=== PATIENT | female | born 1980 | race Caucasian/White ===

== ENCOUNTER 2023-03-05 20:26 | Outpatient (REF) | payer OTHER, SELFPAY ==
[2023-03-09 12:11] LABS: Age Gdln ACOG Testing Note (.); HPV Aptima Negative (Negative); IGP, Aptima HPV, rfx 16/18,45 Note (.)
== END 2023-03-05 20:27 | disposition home or self-care (01) ==
LOC: LAB 20:26
PROVIDERS: Visit Provider Obstetrics & Gynecology
DX: Z12.4 Encounter for screening for malignant neoplasm of cervix (principal)
CPT/HCPCS: 87624; G0145

== ENCOUNTER 2023-04-10 10:24 | Outpatient (OUT) | payer OTHER, SELFPAY ==
--- NOTE | 2023-04-10 10:26 | MM_ITS ---
Patient Name: ZAKI HUMPHREY MR#: [id number] : 1980 Exam Date: 04/10/2023 Ordering Doctor: DR Cheng Joseph . RADIOLOGY REPORT PROCEDURE: MM TOMOSYNTHESIS SCREENING BI COMPARISON: MG MAMM LT DIAG W CAD, 03/07/2017. MG MAMM SCREEN 3D JUDY CAD, 03/08/2022. INDICATIONS: Screening Calculator Name NCI Breast Cancer Risk Assessment Tool 5 Year Breast Cancer Risk 2.00% Lifetime Breast Cancer Risk 17.20% Personal Breast Cancer No Personal Ovarian Cancer No Treatments None Family Cancers Grandfather-maternal with throat cancer at age 70; Aunt-maternal with lung cancer at age 22. LOCATION: [facility] BREAST COMPOSITION: Scattered areas fibroglandular density. FINDINGS: DIAGNOSTIC CATEGORY 2--BENIGN FINDING. NO CHANGE FROM COMPARISON. Scattered benign-appearing calcifications are present. Scattered benign-appearing lymph nodes are present. RIGHT BREAST: No significant suspicious finding. LEFT BREAST: No significant suspicious finding. Stable nodules upper-outer quadrant, mid breast. Stable micro clip marker RECOMMENDATIONS: ROUTINE MAMMOGRAM AND CLINICAL EVALUATION IN 12 MONTHS. PLEASE NOTE: A NORMAL MAMMOGRAM DOES NOT EXCLUDE THE POSSIBILITY OF BREAST CANCER. A CLINICALLY SUSPICIOUS PALPABLE LUMP SHOULD BE BIOPSIED. Dictated by: Ronny Telles MD on 04/11/2023 at 07:46 Approved by: Ronny Telles MD on 04/11/2023 at 07:48
== END 2023-04-10 10:25 | disposition home or self-care (01) ==
LOC: MAMMO 10:24
PROVIDERS: Visit Provider Obstetrics & Gynecology
DX: Z12.31 Encounter for screening mammogram for malignant neoplasm of breast (principal); Z80.1 Family history of malignant neoplasm of trachea, bronchus and lung; Z80.8 Family history of malignant neoplasm of other organs or systems
CPT/HCPCS: 77063; 77067

== ENCOUNTER 2023-04-27 10:57 | Outpatient (OUT) | payer OTHER, SELFPAY ==
--- NOTE | 2023-04-27 11:33 | ECG_ITS ---
[facility] Test Date: 2023-04-27 Pat Name: ZAKI HUMPHREY Department: Room: - Gender: Female Die Tester: : 1980 Requested By: SHAY KRUSE Order Number: [id number] Reading MD: KEN COULTER Measurements Intervals Mikado Rate: 37 P: 51 WI: 189 QRS: 45 QRSD: 93 T: 7 QT: 501 QTc: 396 Interpretive Statements SINUS BRADYCARDIA MODERATE T-WAVE ABNORMALITY, CONSIDER ANTERIOR ISCHEMIA [-0.1+ mV T WAVE IN V3/V4] No previous ECG available for comparison Electronically Signed On 04-29-2023 19:51:08 EST by KEN COULTER
[2023-04-27 11:53] LABS: Basophils Percent Auto 0.7 % (0.2-2.0); Eosinophils Absolute Auto 0.1 10^3/uL (0.0-0.7); Hematocrit 40.8 % (36.0-48.0); Hemoglobin 13.4 g/dL (12.0-16.0); Immature Granulocytes Abs Auto 0.01 10^3/uL (0.00-0.03); Immature Granulocytes Pct Auto 0.2 % (0.0-0.5); Lymphocytes Absolute Auto 2.8 10^3/uL (1.2-3.8); Lymphocytes Percent Auto 45.7 % (20.5-60.0); Mean Corpuscular HGB Conc 32.8 g/dL (29.9-35.2); Mean Corpuscular Hemoglobin 33.1 pg (26.7-34.0); Mean Corpuscular Volume 100.7 fL (81.0-99.0); Mean Platelet Volume 11.2 fL (9.5-13.5); Monocytes Absolute Auto 0.6 10^3/uL (0.3-0.8); Neutrophils Absolute Auto 2.6 10^3/uL (1.4-6.5); Neutrophils Percent Auto 42.4 % (43.0-75.0); Platelet Count 229 10^3/uL (150-450); Red Blood Count 4.05 10^6/uL (4.20-5.40); Red Cell Distribution Width 11.9 % (11.0-15.0); White Blood Count 6.1 10^3/uL (4.0-11.0)
[2023-04-27 12:33] LABS: Alanine Aminotransferase 24 U/L (14-59); Albumin Globulin Ratio 1.2; Albumin Level 3.8 g/dL (3.4-5.0); Alkaline Phosphatase 62 U/L (46-116); Anion Gap 10.4; Aspartate Amino Transferase 20 U/L (15-37); BUN Creatinine Ratio 13.3; Bilirubin Direct 0.1 mg/dL (0.0-0.2); Bilirubin Total 0.4 mg/dL (0.2-1.0); Calcium 8.7 mg/dL (8.5-10.1); Carbon Dioxide 28.7 mmol/L (21.0-32.0); Chloride 105 mmol/L (98-107); Estimated GFR (African America >60 (>=60); Estimated GFR (Non-African Ame >60 (>=60); Globulin 3.2 g/dL; Glucose 86 mg/dL (74-106); Potassium 4.1 mmol/L (3.5-5.1); Sodium 140 mmol/L (136-145)
[2023-04-27 12:54] LABS: INR 0.94; Partial Thromboplastin Time 27.5 sec (22.3-36.2)
== END 2023-04-27 10:58 | disposition home or self-care (01) ==
PROVIDERS: Visit Provider Obstetrics & Gynecology
DX: Z01.810 Encounter for preprocedural cardiovascular examination (principal); Z01.812 Encounter for preprocedural laboratory examination; R10.2 Pelvic and perineal pain; N92.1 Excessive and frequent menstruation with irregular cycle; N94.6 Dysmenorrhea, unspecified; N94.10 Unspecified dyspareunia
CPT/HCPCS: 36415; 80048; 80076; 85025; 85610; 85730; 86850; 86900; 86901; 93005

== ENCOUNTER 2023-05-09 06:13 | Day surgery (SDC) | payer OTHER, SELFPAY ==
[2023-04-27 11:31] VITALS: BP 103/57; PULSE 43; RESP 14; TEMP 36.3; O2SAT 100; BMI 27.3
[2023-05-09] VITALS (14 sets, daily range): BP systolic 103–121; BP diastolic 53–75; PULSE 56–87; RESP 15–23; TEMP 36.4–36.8; O2SAT 95–100
[2023-05-09 06:49] LABS: HCG Quantitative <1 mIU/mL
[2023-05-09] MEDS: LACTATED RINGER'S SOLUTION 1,000 ML 50 ML IV (07:15)
[2023-05-09] MEDS: CEFAZOLIN SODIUM/DEXTROSE,ISO 1 GM/50 ML IV.SOLN IV ×3 (07:35→16:16)
--- NOTE | 2023-05-09 09:56 | P.ON_ITS ---
Brief Operative Note Date of procedure: 05/09/23 Pre-op diagnosis: pelvic pain, dysmenorrhea, aub Post-op diagnosis: same as pre-op Procedure: NAME OF PROCEDURE: ? Robotic assisted laparoscopic hysterectomy with cystoscopy PROCEDURE:? The patient was taken back to the operating room, where she was prepped and draped in the normal sterile fashion after being placed in the dorsal lithotomy position.? Patient?s anesthesia was found to be adequate.? Surgical timeout was performed using two patient identifiers.? SCDs were on and in place.? Two grams of Ancef were given prior to the surgery.? Sterile Rebolledo catheter was inserted.? Standard size VCare was secured to the uterine cervix and the surgeon changed gloves.? Attention then was turned to the patient's abdomen, where a suprau mbilical incision was then made.? Two S retractors were used to identify the patient?s fascia.? The fascia was then tented up using Annetta clamps and the patient?s fascia was incised sharply.? Patient?s abdomen was identified and entered bluntly.? The patient had the trocar placed and a pneumoperitoneum was obtained.? Approximately 4 liters of CO2 gas was used.? The camera was then placed through the trocar.? At this time, two robot trocars were placed in the patient?s left and right side, two hand widths from the midline, and this was placed under direct visualization.? Please note absent tubes were seen. The uterine ovarian ligament was identified and transected and ligated using the vessel sealer? The vessel sealer was carried down serially to the broad ligament, to the area of the bladder flap, which was then created anteriorly, and the uterine arteries were skeletonized and sealed using the vessel sealer.? The colpotomy was made using the monopolar cautery on cut, and this was carried circumferentially, posteriorly to anteriorly, until the uterus was amputated.? The specimen was then removed intact through the vagina, without difficulty.? The vagina was then closed using two running V-Loc in a non-lock fashion.? The robot was undocked.? The abdomen was desufflated.? The skin defects were closed using 4-0 Vicryl.? Please note, the fascia was closed using 0 Vicryl.? Sponge, lap and needle counts were correct x2.? Patient was taken to recovery room in stable condition.? The patient was awakened by Anesthesia first.? Patient tolerated procedure well.??Please note left ovarian cystectomy was performed using the vessel sealer Anesthesia: ANAHI Surgeon: Cheng Joseph Solids Control Technician: Angela Granados Estimated blood loss (mL): 100 Pathology: other (uterus and cervix) Condition: stable Disposition: PACU
[2023-05-09] MEDS: LACTATED RINGER'S SOLUTION 1,000 ML 125 ML IV (10:34)
[2023-05-09] MEDS: OXYCODONE HCL/ACETAMINOPHEN 5MG/325MG 1 TAB PO ×2 (11:25→17:03)
[2023-05-09] MEDS: DOCUSATE SODIUM 100 MG CAPSULE PO (16:05)
[2023-05-09 16:19] LABS: Basophils Percent Auto 0.1 % (0.2-2.0); Hematocrit 39.1 % (36.0-48.0); Hemoglobin 12.9 g/dL (12.0-16.0); Immature Granulocytes Abs Auto 0.04 10^3/uL (0.00-0.03); Immature Granulocytes Pct Auto 0.3 % (0.0-0.5); Lymphocytes Absolute Auto 0.8 10^3/uL (1.2-3.8); Lymphocytes Percent Auto 6.3 % (20.5-60.0); Mean Platelet Volume 10.9 fL (9.5-13.5); Monocytes Absolute Auto 0.3 10^3/uL (0.3-0.8); Monocytes Percent Auto 2.6 % (1.7-12.0); Neutrophils Absolute Auto 11.3 10^3/uL (1.4-6.5); Neutrophils Percent Auto 90.7 % (43.0-75.0); Platelet Count 200 10^3/uL (150-450); Red Blood Count 3.91 10^6/uL (4.20-5.40); White Blood Count 12.5 10^3/uL (4.0-11.0)
== END 2023-05-09 17:28 | disposition home or self-care (01) ==
LOC: SURGOUT 09:58 → MS 10:49
PROVIDERS: Visit Provider Obstetrics & Gynecology
PROC: (CPT 840; principal; 2023-05-09 07:30)
DX: R10.2 Pelvic and perineal pain (principal); N92.1 Excessive and frequent menstruation with irregular cycle; N94.6 Dysmenorrhea, unspecified; N94.10 Unspecified dyspareunia; N88.8 Other specified noninflammatory disorders of cervix uteri; Z98.51 Tubal ligation status; N83.209 Unspecified ovarian cyst, unspecified side; Z87.891 Personal history of nicotine dependence; K21.9 Gastro-esophageal reflux disease without esophagitis; Z87.442 Personal history of urinary calculi; Z86.16 Personal history of COVID-19
CPT/HCPCS: 58570; 58662; 36415; 84702; 85025; 88307; 94667; J1170; J2704

== ENCOUNTER 2024-04-11 07:26 | Outpatient (OUT) | payer OTHER, SELFPAY ==
--- NOTE | 2024-04-11 07:29 | MM_ITS ---
Patient Name: ZAKI HUMPHREY MR#: [id number] : 1980 Exam Date: 04/11/2024 Ordering Doctor: DR Cheng Joseph . RADIOLOGY REPORT PROCEDURE: MM TOMOSYNTHESIS SCREENING BI COMPARISON: MM TOMOSYNTHESIS SCREENING BI, 04/10/2023. MG MAMM SCREEN 3D JUDY CAD, 03/08/2022. MG MAMM LT DIAG W CAD, 03/07/2017. MG MAMM JUDY DIAG W CAD, 08/07/2016. INDICATIONS: Screening Calculator Name NCI Breast Cancer Risk Assessment Tool 5 Year Breast Cancer Risk 2.10% Lifetime Breast Cancer Risk 16.90% Personal Breast Cancer No Personal Ovarian Cancer No Treatments None Family Cancers Grandfather-maternal with throat cancer at age 70; Aunt-maternal with lung cancer at age 22. LOCATION: [facility] BREAST COMPOSITION: There are scattered areas of fibroglandular density. FINDINGS: DIAGNOSTIC CATEGORY 2--BENIGN FINDING: RIGHT BREAST: No significant suspicious finding. No significant change has occurred. LEFT BREAST: No significant suspicious finding. Stable residual fibroglandular tissue versus scarring within posterior upper-outer quadrant and associated biopsy marker clip. No significant change has occurred. RECOMMENDATIONS: ROUTINE MAMMOGRAM AND CLINICAL EVALUATION IN 12 MONTHS. PLEASE NOTE: A NORMAL MAMMOGRAM DOES NOT EXCLUDE THE POSSIBILITY OF BREAST CANCER. A CLINICALLY SUSPICIOUS PALPABLE LUMP SHOULD BE BIOPSIED. Dictated by: Terry Pierson M.D. on 04/11/2024 at 10:22 Approved by: Terry Pierson M.D. on 04/11/2024 at 10:29
--- OUTSIDE RECORDS SUMMARY | 2024-04-11 07:29 | XMS_ITS | CCD ---
Author Organization [facility] Care Team Providers Care Factory Expert Name Role Phone AIXA, DR DAY Admitting Unavailable AIXA, DR DAY Attending Unavailable AIXA, DR DAY Consulting Unavailable AIXA, DR DAY Admitting Unavailable AIXA, DR DAY Attending Unavailable FURLONG, DR MARY KATE Olivier Primary Care Unavailable AIXA, DR DAY Consulting Unavailable AIXA, DR DAY Admitting Unavailable AIXA, DR DAY Attending Unavailable FURLOMACK, DR MARY KATE Olivier Primary Care Unavailable AIXA, DR DAY Consulting Unavailable DANGELO, MARISELA Consulting Unavailable SHARP, TAMI Consulting Unavailable KUCHIPUDI, EMILY Consulting Unavailable AIXA, DR DAY Admitting Unavailable AIXA, DR DAY Attending Unavailable NOREEN, DR FORRESTER Consulting Unavailable AIXA, DR DAY Consulting Unavailable ZIEBER, DR HOLA Wolf Consulting Unavailable AIXA, DR DAY Admitting Unavailable AIXA, DR DAY Attending Unavailable FURJENNIFER, DR MARY KATE Olivier Primary Care Unavailable AIXA, DR DAY Consulting Unavailable ZIEBGIORGI, DR HOLA Wolf Consulting Unavailable AMELIA PILLAI Attending Unavailable ROSAS, AMELIA Attending Unavailable AMELIA PILLAI Attending Unavailable SHAY JOSEPH Attending Unavailable MARY KATE EAGLE Attending Unavailable MARY KATE EAGLE Primary Care Unavailable MARY KATE EAGLE Referring Unavailable MARY KATE EAGLE Primary Care Unavailable PAULA MACHADO Attending Unavailable PAULA MACHADO Admitting Unavailable MARY KATE EAGLE Primary Care Unavailable Problems Active Problems Problem Classification Problem Date Documented Da te Episodic/Chronic Contraceptive and procreative management (1 source) Tubal ligation status; Translations: [TUBAL LIGATION STATUS] Onset: 04-26-2022 Episodic Menstrual disorders (5 sources) Excessive and frequent menstruation with regular cycle; Translations: [Dysmenorrhea, unspecified] Onset: 04-13-2022 Chronic Mycoses (1 source) Candidiasis, unspecified; Translations: [CANDIDIASIS UNSPECIFIED] Onset: 04-26-2022 Episodic Other skin disorders (1 source) Generalized hyperhidrosis; Translations: [Generalized hyperhidrosis] Onset: 09-05-2023 Episodic Ovarian cyst (5 sources) Other ovarian cyst, unspecified side; Translations: [Unspecified ovarian cyst, left side] Onset: 03-11-2022 Episodic Unclassified (1 source) CONTACT W/AND (SUSP) EXPOS COVID-19; Translations: [CONTACT W/AND (SUSP) EXPOS COVID-19] Onset: 04-11-2022 Unclassified (1 source) Annual Exam Onset: 09-05-2023 Past or Other Problems Problem Classification Problem Date Documented Date Episodic/Chronic Immunizations and screening for infectious disease (1 source) Encounter for screening for human papillomavirus (HPV); Translations: [ENC SCREENING HUMAN PAPILLOMAVIRUS] Onset: 03-06-2022 Episodic Other screening for suspected conditions (not mental disorders or infectious disease) (5 sources) Encounter for screening mammogram for malignant neoplasm of breast; Translations: [Encounter for screening for malignant neoplasm of cervix] Onset: 03-02-2022 Episodic Residual codes; unclassified (1 source) Family history of malignant neoplasm of trachea, bronchus and lung; Translations: [FAM HX MALIG NEOPLSM TRACH BRON LNG] Onset: 03-11-2022 Episodic Residual codes; unclassified (1 source) Family history of malignant neoplasm of other organs or systems; Translations: [FAM HX MALIG NEOPLASM OTH ORGN/SYS] Onset: 03-11-2022 Episodic Results Test Name Value Interpretation Reference Range Facility COMPREHENSIVE METABOLIC PANE Juan Manuel 09-05-2023 Albumin [Mass/Vol] 4.3 g/dL Normal 3.2-5.3 [facility] Comment on above: Performed By: #### C PINO, 44520-9 #### [facility] ([id number]) [address], [address] [place] [address] ALP [Catalytic activity/Vol] 68 U/L Normal 39-130 [facility] Comment on above: Performed By: #### C PINO, 87690-5 #### [facility] ([id number]) [address], [address] [place] [address] ALT [Catalytic activity/Vol] 34 U/L High 0-31 [facility] Comment on above: Performed By: #### Sandra PRINGLE, 23982-0 #### [facility] ([id number]) [address] [place] [address] Anion gap [Moles/Vol] 7 mmol/L Normal 5-15 [facility] Comment on above: Performed By: #### Sandra PRINGLE, 10022-1 #### [facility] ([id number]) [address], [address] [place] [address] AST [Catalytic activity/Vol] 24 U/L Normal 0-41 [facility] Comment on above: Performed By: #### Sandra PRINGLE, 27354-2 #### [facility] ([id number]) [address], [address] [place] [address] Bilirubin [Mass/Vol] 0.5 mg/dL Normal 0.3-1.2 [facility] Comment on above: Performed By: #### Sandra PRINGLE, 55143-3 #### [facility] ([id number]) [address], [address] [place] [address] Calcium [Mass/Vol] 9.5 mg/dL Normal 8.5-10.5 [facility] Comment on above: Performed By: #### Sandra PRINGLE, 47163-3 #### [facility] ([id number]) [address], [address] [place] [address] Chloride [Moles/Vol] 105 mmol/L Normal 98-109 [facility] Comment on above: Performed By: #### Sandra PRINGLE, 28542-2 #### [facility] ([id number]) [address], [address] [place] [address] CO2 [Moles/Vol] 31 mmol/L Normal 22-32 [facility] Comment on above: Performed By: #### Sandra PRINGLE, 94423-0 #### [facility] ([id number]) [address], [address] [place] [address] Creatinine [Mass/Vol] 0.69 mg/dL Normal 0.40-1.00 [facility] Comment on above: Result Comment: METH OD TRACEABLE TO IDMS STANDARD Performed By: #### Sandra PRINGLE, 79896-9 #### [facility] ([id number]) [address], [facility] [address] [place] [address] eGFR (CKD-EPI) NON-RACE DEPENDENT >90 Normal >59 [facility] Comment on above: Result Comment: Reported eGFR is based on the CKD-EPI 2020 equation that does not use a race coefficient. Performed By: #### Sandra PRINGLE, 53541-9 #### [facility] ([id number]) [address], [address] [place] [address] Glucose [Mass/Vol] 88 mg/dL Normal 65-99 [facility] Comment on above: Performed By: #### Sandra PRINGLE, 93354-7 #### [facility] ([id number]) [address] [address] [place] [address] Potassium [Moles/Vol] 4.3 mmol/L Normal 3.5-5.0 [facility] Comment on above: Performed By: #### Sandra PRINGLE, 32269-6 #### [facility] ([id number]) [address], [address] [place] [address] Protein [Mass/Vol] 7.0 g/dL Normal 6.0-8.0 [facility] Comment on above: Performed By: #### Sandra PRINGLE, 78205-7 #### [facility] ([id number]) [address], [address] [place] [address] Sodium [Moles/Vol] 143 mmol/L Normal 134-146 [facility] Comment on above: Performed By: #### Sandra PRINGLE, 76438-9 #### [facility] ([id number]) [address], [facility] [address] [place] [address] Urea nitrogen [Mass/Vol] 13 mg/dL Normal 5-23 [facility] Comment on above: Performed By: #### Sandra PRINGLE, 22311-8 #### [facility] ([id number]) [address], [facility] [address] [place] [address] Lipid 1996 panelon 4 Cholesterol [Mass/Vol] 151 mg/dL Normal 150-200 [facility] Comment on above: Performed By: #### Sandra PRINGLE, 31683-6 #### [facility] ([id number]) [address], [facility] [address] [place] [address] Cholesterol in HDL [Mass/Vol] 50 mg/dL Normal >39 [facility] Comment on above: Result Comment: HDL <40 mg/dL - High Risk HDL > or = 40mg/dL- Desirable HDL >60 mg/dL - Negative Risk Performed By: #### Sandra PRINGLE, 71814-3 #### [facility] ([id number]) [address], [address] [address] Cholesterol in LDL [Mass/Vol] 80 mg/dL Normal <130 [facility] Comment on above: Result Comment: LDL <100 mg/dL - Desirable LDL >160 mg/dL - High Risk Performed By: #### Sandra PRINGLE, 21564-0 #### [facility] ([id number]) [address], [address] [place] [address] Cholesterol in VLDL [Mass/Vol] 21 mg/dL Normal 0-30 [facility] Comment on above: Performed By: #### Sandra PRINGLE, 60979-4 #### [facility] ([id number]) [address], [address] [place] [address] CHOLESTEROL:HDL 3.0 Normal 1.0-5.0 [facility] Comment on above: Performed By: #### Sandra PRINGLE, 95326-5 #### [facility] ([id number]) [address], [address] [place] [address] Triglyceride [Mass/Vol] 107 mg/dL Normal 27-150 [facility] Comment on above: Performed By: #### Sandra PRINGLE, 80568-1 #### [facility] ([id number]) [address], [address] [place] [address] Coding Summaryon 09-03-2023 Coding Summary HTMLBase 64 DeinzsbaQQl5eFn+PGhlY WQ+AD2EQEOdR50vwHEzsZ 1vD7CNKTuDKrenRUVMXRg JAhUjslVuQE2qyLHcQRRz IC8+BO6nENObHlpjlFRxl 0C5jNZ0B09eda6zEWwyzE I4MSIoUmZobctpk5dafSz 6IDcuNmluOyBt HSJraG83YXH6gB14Ka43b UCsaUYaq8hpvUo3MlDoUJ SrGND5gGrwECksr7FhIGF mW48tmBJbx3G4 GAXvbHdjpYKsHvHffSR6e I8hOOuqrmwjk9yiuazkDm u8ly77eWCzt7F1gDC9D1F bubJ0LKDgpNNv LpjopQKGvI2miffru2pck tpfPfJjHFVoIPg0BRk9ZX AdeAdwTkXnTP51FSK4HWZ udjZdN4YcMJSj pLhvAoD7e4W0Su6ZZ5MXM proP1QUIWQFUNfcrRX+PC 98fx86N9EoAlwtQmp7DRK wYNE6gWZ4jG7r WRYxOGajs7J5lIT1V0Nco nRnvf4zq9gxGDXmKJcoH1 6bwIFdf6C8OVGirDT5FCX qkQecBqCrcB76 Oyc+FMLawCszl3IlQlfcu 6sjn4lcxLf0TpjxWSAshk BszIhoJYZ9t9OtSr3pATW qvXJ6gPA0bU9q UeBxWgJ9SLmyN448YmRjm NUzHpbsH55qB8YdsPP+PH NrNol5VSWbuXggRC1sO4V hZGRpbmctbGVm hAtbVJ4tKLMquzrlCIFix S4aXYXdX3k5JvNjYeK0QI mbV0AoDOGrwqnaMx00qY6 hRgMtWzC2LDzh P5ByeoY0FECflPYoTYdeP RP0V83qs6O5GQDlVRWqWC M5vPH6oZ5mfXkscntzzMC mdDsgdmVydGlj DCcaPWrbD408MPCntOpoM kNvZGluZyBEYXRlOiAgMD QvMDgvMjAyNDwvdGQ+PHR tYMB8jZfxFBLi rUVoLQafXw6prHedvXboL Q8gZOZqjnkiCOWgfX0iJN WmkMZuoZzoOK9kEZExwik pr773DwGrDKL7 WLBuxROmM1JveU9nKsJoQ QMsFJXhP4TatFZfHIlhG8 54GWgkJlS3UKZgznNtP8B sLWFsaWduOiB0 c4D6Rf7Mc1VsijejI2Qhh GTkGbQuMhweOUt9T4VxYw wvdHI+AG10CBEdWW28WAe 4KRB4zEdoZCdp WQCuR5LowF7vKvCvHZJwD GRkOyc+PHRhYmxlIHdpZH RoPScxMDAlJyBzdHlsZT0 lXc8vSQKcQCYp xQiltGCnJgLlx1hqYPEdP MfzTH1poAfiA0HwwKM5FR Yyd8w0Lb96R22fV2JtpKQ +PGGpmSS7kYP4 jK4cLbUyZjA3ZGfhJ226Z dCivMLwYkyvt4ffl1skgY c3TrI3QEJobjRezBidCIO 9o9WpMr18K57b IHdpZHRoPSIxNSUiIHZhb Orbpx2ctF1zQp5+PGNvbC K8hSB9nD7bTsThRlC7MLz rJ295MjGpkNDa Uewfc2yei4mjnEf3ObLzU JBpdlWwuPctMZT8t0WbOj 12H8XpeEtub7NvMkh7iz0 1rUKoi8R1pKT6 I9UoVWHmykfppECsiQthH C0rAJZadaxaBDKdpF5sXW UfL2d5ZeDyZaS4ZSyeC5R xduT6WFUhgAJn PTMqwXPOqL2ryzpxv2avn hxlSdCjRKWoJKm9TOg7YC OozBhfMsBsSVR8XeD2RGU 4wGMybC4myLlg lseffJ3dDkr+YUG6aJHgb POCAI4wVxetlCK+PHRkIH Y2eYuuJYvsQFNwtD8wSZU gP2u7UzKgHvI0 LEkhU5ZsfzR6VAEvzZMaN PHewPJUmQ2voveur8jfiq tbImOoUPJgTHu5XMq5QIW saWduOiBsZWZ0 DuZ0VVV5gVWyjF4xrBcqs zkbeY3yWmt+QmlydGggRG Y9AHd9V1RoUzk4MVJleRk wZF2jrXIeUFer Xg5loHoyaInsWA3xYGJmr chtw627SvEgu3htWXFafS ZaMVjsGOM2W19nq3Q0KMP xFZYaXCC7bZQ2 nB8tsWejqibcgQNnfIzjh wOhhRfpZQkuKFwqV179QL DedVqcDoPvPMj0B9JiFri 5RJGcuEhgPG1w jKInRJcvPe5pwAabcIzvR O5wCEBqmpqzr954MgQry1 bfIIZokACgCQakSTQ7H27 kr7N7EZDqNXEa ZZM2jDV7dC5beFefvqzvx GVmdDsgdmVydGljYWwtYW ziR625YXPjvFqaRfHdvSb 2B1RxKij9KCHg wPrbLT4cgNNsGZwhXd7yo BwcsLzhGA2hWZGnhnfns7 27LqMbj7kfTBOhbPZdKPl gFQL7K33xg7I6 WLYtBBAtRQR1kNX0gF1ds GlnbjogbGVmdDsgdmVydG ikGBedWSkcR230JQTwvSp nPlBhdGllbnQg WGvzBIl8K1IvWvjnzOY+P X19HCMiWK66eDHiqEMba3 acbZw0SnLpAYPgQPV6xDq zDDkmd0EdDNRi U48ctGFhp1D7ANMboNfhr ZQtNpAnlBI7kA6xJVpiar hjg0spiaftGgcnz5uktr5 9aP75T21wAZru ZHRoPSIzMCUiIHZhbGlnb o7ifZ1qLv4+SBEkgJD2yO Q4qL8lOCZdBjO8VRudM14 9InRvcCIvPjxj w9uve5kqaSu9SyP0IORfl pRjeOwkCAK8f5CxEf94C5 9sIHdpZHRoPSIyMCUiIHZ nlGadby7scI5g Ii8+JHUfdIF3zUJ5pG3eH fLyZrP1GOnlF107XqEvuP UzAywnY83zN5CboUN+PHR tSle7WSWkqEjq HJ5baPQzWUfvHo3jAGR7W zDhKrNnWWsfM7RwVQCwyd rspkcwrSO2WGXsASOukV7 0Vz7ntNztUTDm aHHEzG8vruadb7njfkugB rOvOSNpSHi0GMy3PZGliQ fqUcChFSE1PpF1JPM6mDF ugP0miQrdpwjj cI1fF4NaNUTdfqqtCy31d O4pFwLeZdG5XCvnFvs+QU STZt9MDWgANKUDKgXZJGp BVEhFUklORTwv dGQ+SKLyFXT8iAlmZOgrP RJyuA5bPFBiU1e8QyEaSf S3DBqwN0JqOZCulbozGw8 0iB4jInRdDnU7 QOzwK8FevhY4KVKmaOCkM WhmHAL8Q70kz0L9SSWwCP MbVLN7tIF9dO6ytBhjoip gbGVmdDsgdmVy tYyrRXoqXDroM751XJRws KlbSwT9PuD4FjC5RVQ0S9 ZnTic2OIEtsFfuSY0qvJI qJVzdYq6ghTin aYvaXB4cKJXjhjelIMJrk G7sWSFxjJAniQepYA0sDX Jvfydst193PlCbEDX9WQF rfXNzU4ApaP7e WnCuCZVwJDYgO4FhoGSiJ SqlW998RSflDoM2NCLhjm DxP9XlHWNllZjnCjL5q7P 4Hm01QzRNSVLt czwvdGQ+ZWAvSDM4gCpbB ZtyERYtaY3gBZNtS1t8Hx FuHzA6QJgzI5YfUDTwgyi eJx40sU7fPfCg QmD0QEasO9MyutQ0PKFhu BEhLJeeGNU2G68fb9E8DW SgPZVpEPD1oSU6bG0xxEj nbjogbGVmdDsg erYeuUuhTHrrLAwwT656N HRvcDsnPkZFTUFMRTwvdG Q+MKDxWIO7qAcoSGovMNO ydP6rYUHlJ2y2 FdWqEqQ8CCtoJ2KiHATuq rxmJl61aW1zXbJmCsR9XY eeZ2BxroR1BDMzeNBtMRo fRFB6I17gf6O8 EFVqOTUcBWV7eOK2rC0hz GlnbjogbGVmdDsgdmVydG olZRxzYGquY107LYCzzFr xSn9IWH16QV95 I3ViUxuodIYlfAR+PHRhY mxlIHdpZHRoPScxMDAlJy OleJlfRV1jDw1mLGSyLVL vbGxhcHNlOiBj s8joQIRfQUjlCU1rwHwaI 5RgdUT0UCVud1v2Pa96B2 2wM7BafAO+JXQttXW2qUN 4uH9pNeOuPaT7 BEsoY941FsTfgVKsPvzxb 1css2ukkTa7UiKzRNBjpq XqoVndBVG6u8UsNm24T29 sIHdpZHRoPSIy VCTpQCOiyMqpgc4bgL3hM i8+RTFtwCC6jQZ5vL3qJp LmLxL6IDkzI668YyRknCL bFzblK18zS1Rc dXA+FQWdYef7LCQgsSylB K8bsDQvMMmwUq8cKGD5Ru JwYxRuZNgzG5YxXJDwaml kjkkraVK2OCZb SOGirV44Uw4ktZdrQs6dC EQyTGY5KJTlsROgY1KazF 7zWfHwCDZvMKKiV6ZezDR gDYlxG820QMpv FpK2SLCbslYyD3EaMAJut VvjGcI4p5N6Rq5LzXuviO SqVJ5kYtSoXOy6F7KhYib 1EFIfkGkzCG2a tTZrSSzhRg4xhFrolNcdE Y7eDIEyxwrsi581YgSkn0 jlJMAjdGIlOMekJLW8Y98 ul3K1NCTgKRIe CPB7eRS8jG6vqCsgekcpz GVmdDsgdmVydGljYWwtYW liT577SYRviHqlEgYSZgn 2P0XyPys6DOWd xZsrFE5oiZUlAMzvSx7hd PyvpUxpPC2oIOMcnuwyc4 02GsNsn8rdPGZnmYQiXXj pJGB5R85jr5R9 TMBdDBRqYWG2mQG2hZ8kx GlnbjogbGVmdDsgdmVydG nhHMksMPonE481JJZrnMy aUb9XBiv9L1Tp Qug9JJCcnTfiEG9tiBUwV JsfGq5ucMxcaIgkTG7dQI Slnpuuf314KnZrj8xbKFQ wcHQgVGltZXM7 D39ev8Y1EWYdPMSmIVL6o CB8lO0rcAymimfroRTmjH nzifLvtZdoRMnmMQreF32 6IHRvcDsnPlBh eWVyOjwvdGQ+VS15tg59K 8UzEsxcSvt9WCCcXAV2eR R3zL9tBPKzUJssm8L0dGX 9R2AbiyGepz3e b2x (more content not included)... Normal [facility] C Throaton 09-01-2023 C Throat Ordered by Discern. Normal throat [place] isolated No pathogens isolated [facility] Comment on above: Performed By: #### [id number] #### [facility] (DEFAULT) [address] [place] [address] ED Clinical Summaryon 2023 ED Clinical Summary [facility] ? Urgent Care [address] [place] [id number] Clinical Summary PERSON INFORMATION Name: ZAKI HUMPHREY Age: 43 Years Sex: FEMALE : 1980 MRN: Acct#: Visit Reason: Cough; Ear pain; Throat pain - Adult; SORE THROAT, COUGH Arrival: 08/30/2023 13:43:15 Discharge: 08/30/2023 14:29:00 LOS: 000 00:46 Check In: 08/30/2023 13:43:15 Checkout: 08/30/2023 14:29:00 Address: [address] [place] [address] PCP: MARY KATE EAGLE PROVIDER INFORMATION Provider Role Assigned Unassigned PAULA MACHADO ED PA 08/30/2023 13:45:37 Stacey Ware PAN WASHER HAND Nurse 08/30/2023 13:55:45 VITALS INFORMATION Vital Sign Triage Latest Temperature Tympanic Temperature Temporal Artery Pulse Rate O2 Sat 99 % 99 % Respiratory Rate Blood Pressure /60 mmHg /60 mmHg MEDICAL INFORMATION Medications Given: Allergy Information: No known allergies PHYSICIAN DOCUMENTATION DISCHARGE INFORMATION: Discharge Disposition: Home Discharge Location: Home PATIENT EDUCATION INFORMATION Instructions: Viral Respiratory Infection; Influenza, Adult Follow-Up: With: Address: When: MARY KATE EAGLE [address] [place], [place] [address] [phone] Business (1) Within 2 to 4 days Comments: Follow-up with primary care provider next couple days for reevaluation. Continue supportive care with plenty of rest and fluids, Tylenol for aches and pains and low-grade fevers. Use honey as a natural cough suppressant, salt water gargle to help with sore throats, Vicks vapor rub for congestion and ukhh-qqm-tbhqohx medication such as Mucinex to help with congestion. Having any significantly worsening issues such as crushing chest pains, shortness of breath, high spiking fevers of 103 or greater, intractable vomiting, abdominal pains or any other issue please go directly to the emergency department. DIAGNOSIS: Exposure to influenza; Influenza B Patient Understands: Yes - Patient/family/caregi rosemary verbalizes understanding of instructions given Comment: Normal [facility] ED Patient Summaryon 024 ED Patient Summary [facility] ? Urgent Care [address] [place] [id number] PATIENT DISCHARGE INSTRUCTIONS Patient Information Name: ZAKI HUMPHREY Age: 43 Years Date of : 1980 [facility]: [id number] Reason For Visit: Cough; Ear pain; Throat pain - Adult; SORE THROAT, COUGH Arrival Time: 08/30/2023 13:43:15 Primary Care Physician: MARY KATE EAGLE Attending Physician: PAULA MACHADO Comment: Patient Education With: Address: When: MARY KATE EAGLE [facility] [place] [address] Business (1) Within 2 to 4 days Comments: Follow-up with primary care provider next couple days for reevaluation. Continue supportive care with plenty of rest and fluids, Tylenol for aches and pains and low-grade fevers. Use honey as a natural cough suppressant, salt water gargle to help with sore throats, Vicks vapor rub for congestion and tvts-skb-ajwqzzf medication such as Mucinex to help with congestion. Having any significantly worsening issues such as crushing chest pains, shortness of breath, high spiking fevers of 103 or greater, intractable vomiting, abdominal pains or any other issue please go directly to the emergency department. Viral Respiratory Infection A respiratory infection is an illness that affects part of the respiratory system, such as the lungs, nose, or throat. A respiratory infection that is caused by a virus is called a viral respiratory infection. Common types of viral respiratory infections include: ? A cold. ? The flu (influenza). ? A respiratory syncytial virus (RSV) infection. What are the causes? This condition is caused by a virus. The virus may spread through contact with droplets or direct contact with infected people or their mucus or secretions. The virus may spread from person to person (is contagious). What are the signs or symptoms? Symptoms of this condition include: ? A stuffy or runny nose. ? A sore throat or cough. ? Shortness of breath or difficulty breathing. ? Yellow or green mucus (sputum). Other symptoms may include: ? A fever. ? Sweating or chills. ? Fatigue. ? Achy muscles. ? A headache. How is this diagnosed? This condition may be diagnosed based on: ? Your symptoms. ? A physical exam. ? Testing of secretions from the nose or throat. ? Chest X-ray. How is this treated? This condition may be treated with medicines, such as: ? Antiviral medicine. This may shorten the length of time a person has symptoms. ? Expectorants. These make it easier to cough up mucus. ? Decongestant nasal sprays. ? Acetaminophen or NSAIDs, such as ibuprofen, to relieve fever and pain. Antibiotic medicines are not prescribed for viral infections.This is because antibiotics are designed to kill bacteria. They do not kill viruses. Follow these instructions at home: Managing pain and congestion ? Take gvcs-utx-lnfguia and prescription medicines only as told by your health care provider. ? If you have a sore throat, gargle with a mixture of salt and water 3?4 times a day or as needed. To make salt water, completely dissolve ??1 tsp (3?6 g) of salt in 1 cup (237 mL) of warm water. ? Use nose drops made from salt water to ease congestion and soften raw skin around your nose. ? Take 2 tsp (10 mL) of honey at bedtime to lessen coughing at night. ? Do not give honey to children who are younger than 1 year. ? Drink enough fluid to keep your urine pale yellow. This helps prevent dehydration and helps loosen up mucus. General instructions ? Rest as much as possible. ? Do not drink alcohol. ? Do not use any products that contain nicotine or tobacco. These products include cigarettes, chewing tobacco, and vaping devices, such as e-cigarettes. If you need help quitting, ask your health care provider. ? Keep all follow-up visits. This is important. How is this prevented? ? Get an annual flu shot. You may get the flu shot in late summer, fall, or winter. Ask your health care provider when you should get your flu shot. ? Avoid spreading your infection to other people. If you are sick: ? Wash your hands with soap and water often, especially after you cough or sneeze. Wash for at least 20 seconds. If soap and water are not available, use alcohol-based hand scheduling representative. ? Cover your mouth when you cough. Cover your nose and mouth when you sneeze. ? Do not share cups or eating utensils. ? Clean commonly used objects often. Clean commonly touched surfaces. ? Stay home from work or school as told by your health care provider. ? Avoid contact with people who are sick during cold and flu season. This is generally fall and winter. Contact a health care provider if: ? Your symptoms last for 10 days or longer. ? Your symptoms get worse over time. ? You have severe sinus pain in your face or forehe (more content not included)... [facility] POCT Rapid CoV-2 (COVID-19) Antigen/ Flu A&Bon 08-30-2023 Influenza A POCT Negative Normal Negative [facility] Comment on above: Performed By: #### [id number] #### [facility] (DEFAULT) [address] [place] [address] Influenza B POCT Positive Abnormal Negative [facility] Comment on above: Performed By: #### 0 [id number] #### [facility] (DEFAULT) [address] [place] [address] SARS-CoV-2 (COVID-19) RNA PREET+probe Ql (Unsp spec) Not detected [facility] Comment on above: Performed By: #### [id number] #### [facility] (DEFAULT) [address] [place] [address] Strep Aon 08-30-2023 Strep procedure control Pass [facility] Comment on above: Performed By: #### [id number] #### [facility] (DEFAULT) [address] [place] [id number] Streptococcus A Negative Normal Negative [facility] Comment on above: Performed By: #### [id number] #### [facility] (DEFAULT) [address] [place] [address] Urgent Care Note- Provideron 08-30-2023 Urgent Care Note- Provider Patient: ZAKI HUMPHREY Age: 43 years Sex: FEMALE : 1980 Associated Diagnoses: Exposure to influenza; Influenza B Author: PAULA MACHADO Subjective 43-year-old female presenting to urgent care with complaint of nasal congestion, postnasal drip, sore throat, earache, mild cough body aches. Patient indicates that this started Sunday morning approximately 2 days ago. She states she has been around her niece on Sunday and Sunday and was just told that her knees is positive for influenza B. She denies having any vomiting, abdominal pains, chest pains or shortness of breath. States she is getting achiness in her ear specifically right greater than left. Health Status Allergies: Allergic Reactions (Selected) No known allergies Problem list: All Problems Genital herpes / SNOMED CT [id number] / Confirmed Objective CONST: -Well-developed well-nourished. -Acute distress: No -Vitals: reviewed. SKIN: -Gross abnormalities: No EYES: -EOM intact, EZIO: -Sclera conjunctiva: Unremarkable. ENT: -Posterior pharynx pink and moist uvula midline tolerating oral secretions without any problems. No tripoding or hot potato voice appreciated -Bilateral ear canals clear, tympanic membranes pearly desouza. NECK: -Supple ([id number]): non-tender. CARD: -Rate and rhythm: Regular RESP: -Respiratory effort and chest excursion with respirations: Normal -Breath sounds equal bilaterally: Clear -Wheezes: No -Rales: No NEURO: -Patient: alert -Oriented to: person, place and time. -Appearance and judgment: appropriate. Impression and Plan Assessment and Plan: Diagnosis: Exposure to influenza ([id number] Z20.828), Influenza B ([id number] J10.1). Orders Orders Laboratory: Rapid Strep (Order): Swab, 08/30/2023 13:59 EDT, Stat collect, Nurse collect Patient Care: Rapid CoV-2 (COVID-19) Antigen/ Flu A&B POC RE (Order): 08/30/2023 13:59 EDT, Once. . Strep swab is negative. COVID and influenza swab positive for influenza a and B. I discussed Tamiflu with this patient she declined because she not feel this was necessary. We discussed supportive care measures and following up primary care provider return for any worsening issues or go directly to the emergency department. Patient indicated she understood was in agreement. Patient stable will be discharged [Electronically Signed on: 08/30/2023 14:22 EDT] PAULA MACHADO [Verified on: 08/30/2023 14:22 EDT] PAULA MACHADO [facility] [address] Urgent Care Record [facility] ? Urgent Care [address] [place], [place] [id number] PATIENT DISCHARGE INSTRUCTIONS Patient Information Name: ZAKI HUMPHREY Age: 43 Years Date of : 1980 Reason For Visit: Cough; Ear pain; Throat pain - Adult; SORE THROAT, COUGH Arrival Time: 08/30/2023 13:43:15 Primary Care Physician: MARY KATE EAGLE Attending Physician: PAULA MACHADO Comment: Visit Diagnosis: Diagnoses This Visit Cough ([id number]) Ear pain ([id number]) Exposure to influenza (Z20.828) Influenza B (J10.1) Throat pain - Adult ([id number]) If you received any narcotics, sedation, or any other medication that causes drowsiness for the next 24 hours, unless otherwise directed: ? Do not drive a car. ? Do not operate machinery such as power tools, lawn mowers, drills, sewing machines, or stoves ? Avoid alcoholic beverages and drugs for allergies, nerves, or sleep ? Do not make important personal or business decisions or sign any legal documents With: Address: When: MARY KATE Fall [place] [address] Business (1) Within 2 to 4 days Comments: Follow-up with primary care provider next couple days for reevaluation. Continue supportive care with plenty of rest and fluids, Tylenol for aches and pains and low-grade fevers. Use honey as a natural cough suppressant, salt water gargle to help with sore throats, Vicks vapor rub for congestion and mzsn-uwk-[id number] medication such as Mucinex to help with congestion. Having any significantly worsening issues such as crushing chest pains, shortness of breath, high spiking fevers of 103 or greater, intractable vomiting, abdominal pains or any other issue please go directly to the emergency department. Medication Information: The exam and treatment you received today in the [facility] were for an urgent problem and are not intended as complete care. It is important for you to follow up with a doctor, nurse practitioner, or physician?s merchandising assistant for ongoing care. If your symptoms become worse or you do not improve as expected and you are unable to reach your usual health care provider, you should return to the Emergency Department, we are available 24 hours a day. For those patients who have received Radiology results, the interpretation of your X-ray as given to you by our Urgent Care physician is only a preliminary report. The Radiologist will review your films and if there is a change in the diagnosis you will be notified by phone. Please make sure you have provided a working phone number so we can reach you if necessary. In the event that you had a lab culture while you were a patient in the Urgent Care, you will be notified by phone if there is a need to change your antibiotic. Please make sure you have provided a working phone number so we can reach you if necessary. [facility] has provided you with a complete list of medications post discharge. Please inform your candle cutter/provider of your visit and for further instruction on these medications. Any specific questions regarding your chronic medications and dosages should be discussed with your primary care physician(s) and/or pharmacist. Visit Information Allergies: Substance Reaction Symptoms Type Comments No known allergies Drug Vital Signs: Vitals and Measurements this Visit (last charted value for your 08/30/2023 visit) Vital Signs This Visit Temperature Temporal: 36.6 DegC Peripheral Pulse Rate: 52 bpm Respiratory Rate: 16 br/min Systolic Blood Pressure: 112 mmHg Diastolic Blood Pressure: 60 mmHg SpO2: 99 % Oxygen Therapy: Room air Blood Pressure Method: Automatic Measurements This Visit Height/Length Measured: 160.02 cm Weight Measured: 71.30 kg Weight Dosin.300 kg Body Mass Index: 27.84 kg/m2 BSA Measured: 1.78 m2 Problems List: Problem Onset Comments No Problems found Patient Education Viral Respiratory Infection A respiratory infection is an illness that affects part of the respiratory system, such as the lungs, nose, or throat. A respiratory infection that is caused by a virus is called a viral respiratory infection. Common types of viral respiratory infections include: ? A cold. ? The flu (influenza). ? A respiratory syncytial virus (RSV) infection. What are the causes? This condition is caused by a virus. The virus may spread through contact with droplets or direct contact with infected people or their mucus or secretions. The virus may spread from person to person (is contagious). What are the signs or symptoms? Symptoms of this condition include: ? A stuffy or runny nose. ? A sore throat or cough. ? Shortness of breath or difficulty breathing. ? Yellow or green mucus (sputum). Other symptoms may include: ? A fever. ? Sweating or chills. (more content not included)... Normal [facility] US PELVIS AND TRANSVAGon US PELVIS AND TRANSVAG EXAMINATION: US PELVIS AND TRANSVAG HISTORY: Cyst of ovary ; follow-up left ovarian cyst COMPARISON: Ultrasound pelvis 03/08/2022 TECHNIQUE: Transabdominal and transvaginal sonographic examination. FINDINGS: UTERUS: Normal size and appearance. Uterus size: 9.1 x 5.8 x 6.2 cm ENDOMETRIUM: Normal homogeneous appearance. Endometrial thickness: 5 mm RIGHT OVARY: Normal size and appearance. Duplex Doppler demonstrates normal waveform and flow; resistive index 0.6. Ovary size: 2.4 x 2.4 x 1.8 cm LEFT OVARY: Normal size and appearance. Duplex Doppler demonstrates normal waveform and flow; resistive index 0.6. Ovary size: 2.9 x 2.0 x 2.1 cm CUL-DE-SAC: Unremarkable. No significant free fluid. BLADDER: Unremarkable. OTHER: None. IMPRESSION: 1. Normal pelvic ultrasound. Resolution of previously seen complex left ovarian cyst. Electronically authenticated by: HOLA SUAREZ Date: 2022-05-09 16:[address] [facility] CBC AUTO DIFFon 04-13-2022 BASO # 0.0 103/ul Normal 0.0-0.[address] [facility] Comment on above: Performed By: #### C BC #### [facility] [address] [place] [address] Dr. Rin Pride Basophils/100 WBC (Bld) 0.5 % Normal 0.2-2.0 [facility] Comment on above: Performed By: #### C BC #### [facility] [address] [place] [address] Dr. Rin Pride EO # 0.1 103/ul Normal 0.0-0.[address] [facility] Comment on above: Performed By: #### C BC #### [facility] [address] [place] [address] Dr. Rin Pride Eosinophils/100 WBC (Bld) 2.2 % Normal 0.9-7.0 [facility] Comment on above: Performed By: #### C BC #### [facility] [address] [place] [address] Dr. Rin Pride Erythrocyte distribution width (RBC) [Ratio] 12.1 % Normal 11.0-15.0 [facility] Comment on above: Performed By: #### C BC #### [facility] [address] [place] [address] Dr. Rin Pride Hematocrit (Bld) [Volume fraction] 41.8 % Normal 36.0-48.0 [facility] Comment on above: Performed By: #### C BC #### [facility] [address] [place] [address] Dr. Rin Pride Hemoglobin (Bld) [Mass/Vol] 14.1 g/dL Normal 12.0-16.0 [facility] Comment on above: Performed By: #### C BC #### [facility] [address] [place] [address] Dr. Rin Pride IG # 0.01 10e3/ul Normal 0.00-0.03 [facility] Comment on above: Performed By: #### C BC #### [facility] [address] [place] [address] Dr. Rin Pride IG % 0.2 % Normal 0.0-0.[address] [facility] Comment on above: Performed By: #### C BC #### [facility] [address] [place] [address] Dr. Rin Pride LYMPH # 2.6 103/ul Normal 1.2-3.[address] [facility] Comment on above: Performed By: #### C BC #### [facility] [address] [place] [address] Dr. Rin Pride Lymphocytes/100 WBC (Bld) 43.8 % Normal 20.5-60.0 [facility] Comment on above: Performed By: #### C BC #### [facility] [address] [place] [address] Dr. Rin Pride MANUAL DIFF REQ NO Normal [facility] Comment on above: Performed By: #### C BC #### [facility] [address] [place] [address] Dr. Rin Pride MCH (RBC) [Entitic mass] 32.4 pg Normal 26.7-34.0 [facility] Comment on above: Performed By: #### C BC #### [facility] [address] [place] [address] Dr. Rin Pride MCHC (RBC) [Mass/Vol] 33.7 g/dL Normal 29.9-35.[address] [facility] Comment on above: Performed By: #### C BC #### [facility] [address] [place] [address] Dr. Rin Pride MCV (RBC) [Entitic vol] 96.1 fL Normal 81.0-99.[address] [facility] Comment on above: Performed By: #### C BC #### [facility] [address] [place] [address] Dr. Rin Pride MONO # 0.5 103/ul Normal 0.3-0.[address] [facility] Comment on above: Performed By: #### C BC #### [facility] [address] [place] [address] Dr. Rin Pride Monocytes/100 WBC (Bld) 8.9 % Normal 1.7-12.[address] [facility] Comment on above: Performed By: #### C BC #### [facility] [address] [place] [address] Dr. Rin Pride NEUT # 2.7 103/ul Normal 1.4-6.[address] [facility] Comment on above: Performed By: #### C BC #### [facility] [address] [place] [address] Dr. Rin Pride Neutrophils/100 WBC (Bld) 44.4 % Normal 43.0-75.[address] [facility] Comment on above: Performed By: #### C BC #### [facility] [address] [place] [address] Dr. Rin Pride Platelet mean volume (Bld) [Entitic vol] 11.2 fL Normal 9.5-13.[address] [facility] Comment on above: Performed By: #### C BC #### [facility] [address] [place] [address] Dr. Rin Pride PLT 262 103/ul Normal 150-[address] [facility] Comment on above: Performed By: #### C BC #### [facility] [address] [place] [address] Dr. Rin Pride RBC 4.35 106/ul Normal 4.20-5.[address] [facility] Comment on above: Performed By: #### C BC #### [facility] [address] [place] [address] Dr. Rin Pride WBC 6.0 103/ul Normal 4.0-11.[address] [facility] Comment on above: Performed By: #### C BC #### [facility] [address] [place] [address] Dr. Rin Pride PREG HCG QUALon 04-13-2022 , QUAL Negative Normal NEGATIVE [facility] Comment on above: Performed By: #### P REG #### [facility] [address] [place] [address] Dr. Rin Pride Covid-19 PCR (CVDTB)on 03-28 SARS-CoV-2 (COVID-19) RNA PREET+probe Ql (Unsp spec) Not detected Normal NOT DETECTED [facility] Comment on above: Result Comment: This test is not yet approved or cleared by the [place] FDA. When there are no FDA-approved or cleared tests available, and other criteria are met, FDA can make tests available under an emergency access mechanism called an Emergency Use Authorization (EUA). The EUA for this test is supported by the [place] of Health and Human Service's (HHS's) declaration that circumstances exist to justify the emergency use of in vitro diagnostics for the detection and/or diagnosis of the virus that causes COVID-19. This EUA will remain in effect (meaning this test can be used) for the duration of the COVID-19 declaration justifying emergency of IVDs, unless it is terminated or revoked by FDA (after which the test may no longer be used). When diagnostic testing is negative, the possibility of a false negative should be considered in the context of a patient's recent exposures and the presence of clinical signs and symptoms consistent with SARS-CoV-2. Performed By: #### C VDTBH #### [facility] [address] [place] [address] Dr. Rin Pride PAP ACOG PANEL 2: 30 to 65on 03-09-2022 . . Normal [facility] Comment on above: Result Comment: Perf ormed at: BA Performed By: #### [id number] #### [facility] [address] [place] [address] Dr. Rin Pride Age Gdln ACOG Testing 30-65 Normal [facility] Comment on above: Performed By: #### 4 [id number] #### [facility] [address] [place] [address] Dr. Rin Pride DIAGNOSIS: Comment Normal [facility] Comment on above: Result Comment: NEGA TIVE FOR INTRAEPITHELIAL LESION OR MALIGNANCY. Performed at: BA Performed By: #### [id number] #### [facility] [address] [address] [address] Rin Pride HPV Aptima Negative Normal Negative [facility] Comment on above: Result Comment: This nucleic acid amplification test detects fourteen high-risk HPV types (16,18,31,33,35,39,45,51,52,56,58,59,66,68) without differentiation. Performed at: =G Performed By: #### [id number] #### [facility] [address] [place] [address] Dr. Rin Pride Methodology: Comment Normal [facility] Comment on above: Result Comment: This liquid based ThinPrep(R) pap test was screened with the use of an image guided system. Performed at: WB Performed By: #### [id number] #### [facility] [address] [place] [address] Dr. Rin Pride Note: Comment Normal [facility] Comment on above: Result Comment: The Pap smear is a screening test designed to aid in the detection of premalignant and malignant conditions of the uterine cervix. It is not a diagnostic procedure and should not be used as the sole means of detecting cervical cancer. Both false-positive and false-negative reports do occur. . Performed at: WB Performed By: #### [id number] #### [facility] [address] [place] [address] Dr. Rin Pride Performed by: Comment Normal [facility] Comment on above: Result Comment: Mayra Whitley, Haulage Engine Operator (ASCP) Performed at: BA Performed By: #### [id number] #### [facility] [address] [place] [address] Dr. Rin Pride Specimen adequacy: Comment Normal [facility] Comment on above: Result Comment: Sati sfactory for evaluation. Endocervical and/or squamous metaplastic cells (endocervical component) are present. Performed at: BA Performed By: #### [id number] #### [facility] [address] [place] [address] Dr. Rin Pride CBC AUTO DIFFon 03-08-2022 BASO # 0.0 103/ul Normal 0.0-0.1 [facility] Comment on above: Performed By: #### C BC #### [facility] [address] [place] [address] Dr. Rin Pride Basophils/100 WBC (Bld) 0.4 % Normal 0.2-2.0 [facility] Comment on above: Performed By: #### C BC #### [facility] [address] [place] [address] Dr. Rin Pride EO # 0.1 103/ul Normal 0.0-0.[address] [facility] Comment on above: Performed By: #### C BC #### [facility] [address] [place] [address] Dr. Rin Pride Eosinophils/100 WBC (Bld) 1.6 % Normal 0.9-7.0 [facility] Comment on above: Performed By: #### C BC #### [facility] [address] [place] [address] Dr. Rin Pride Erythrocyte distribution width (RBC) [Ratio] 12.2 % Normal 11.0-15.0 [facility] Comment on above: Performed By: #### C BC #### [facility] [address] [place] [address] Dr. Rin Pride Hematocrit (Bld) [Volume fraction] 41.0 % Normal 36.0-48.0 [facility] Comment on above: Performed By: #### C BC #### [facility] [address] [place] [address] Dr. Rin Pride Hemoglobin (Bld) [Mass/Vol] 13.4 g/dL Normal 12.0-16.0 [facility] Comment on above: Performed By: #### C BC #### [facility] [address] [place] [address] Dr. Rin Pride IG # 0.01 10e3/ul Normal 0.00-0.03 [facility] Comment on above: Performed By: #### C BC #### [facility] [address] [place] [address] Dr. Rin Pride IG % 0.1 % Normal 0.0-0.[address] [facility] Comment on above: Performed By: #### C BC #### [facility] [address] [place] [address] Dr. Rin Pride LYMPH # 2.8 103/ul Normal 1.2-3.[address] [facility] Comment on above: Performed By: #### C BC #### [facility] [address] [place] [address] Dr. Rin Pride Lymphocytes/100 WBC (Bld) 36.3 % Normal 20.5-60.0 [facility] Comment on above: Performed By: #### C BC #### [facility] [address] [place] [address] Dr. Rin Pride MANUAL DIFF REQ NO Normal [facility] Comment on above: Performed By: #### C BC #### [facility] [address] [place] [address] Dr. Rin Pride MCH (RBC) [Entitic mass] 32.1 pg Normal 26.7-34.0 [facility] Comment on above: Performed By: #### C BC #### [facility] [address] [place] [address] Dr. Rin Pride MCHC (RBC) [Mass/Vol] 32.7 g/dL Normal 29.9-35.2 [facility] Comment on above: Performed By: #### C BC #### [facility] [address] [place] [address] Dr. Rin Pride MCV (RBC) [Entitic vol] 98.1 fL Normal 81.0-99.0 [facility] Comment on above: Performed By: #### C BC #### [facility] [address] [place] [address] Dr. Rin Pride MONO # 0.6 103/ul Normal 0.3-0.8 [facility] Comment on above: Performed By: #### C BC #### [facility] [address] [place] [address] Dr. Rin Pride Monocytes/100 WBC (Bld) 7.7 % Normal 1.7-12.0 [facility] Comment on above: Performed By: #### C BC #### [facility] [address] [place] [address] Dr. Rin Pride NEUT # 4.1 103/ul Normal 1.4-6.5 [facility] Comment on above: Performed By: #### C BC #### [facility] [address] [place] [address] Dr. Rin Pride Neutrophils/100 WBC (Bld) 53.9 % Normal 43.0-75.0 [facility] Comment on above: Performed By: #### C BC #### [facility] [address] [address] [address] Rin Pride Platelet mean volume (Bld) [Entitic vol] 10.5 fL Normal 9.5-13.5 [facility] Comment on above: Performed By: #### C BC #### [facility] [address] [address] [address] Rin Pride PLT 241 103/ul Normal 150-450 [facility] Comment on above: Performed By: #### C BC #### [facility] [address] [address] [address] Rin Pride RBC 4.18 106/ul Critically low 4.20-5.40 [facility] Comment on above: Performed By: #### C BC #### [facility] [address] [address] [address] Rin Pride WBC 7.6 103/ul Normal 4.0-11.0 [facility] Comment on above: Performed By: #### C BC #### [facility] [address] [address] [address] Rin Pride FREE T4on 03-08-2022 Free T4 [Mass/Vol] 0.85 ng/dL Normal 0.76-1.46 [facility] Comment on above: Performed By: #### F T4 ####[facility] [id number] [address]Dr. Rin Pride GLYCOHEMOGLOBIN A1Con 2021 ADA RECOMMENDATION SEE BELOW Normal [facility] Comment on above: Result Comment: ADA RECOMMENDED LIMIT 4.0 - 6.0 ADA THERAPEUTIC TARGET < 7.0 ACTION SUGGESTED > 7.0 Performed By: #### A 1C #### [facility] [address] [address] [address] Rin Pride Glucose [Mass/Vol] 108 mg/dL Normal [facility] Comment on above: Performed By: #### A 1C #### [facility] [address] [place] [address] Dr. Rin Pride HbA1c (Bld) [Mass fraction] 5.4 % Normal 4.5-6.2 [facility] Comment on above: Performed By: #### A 1C #### [facility] [address] [place], [place] [address] Dr. Rin Pride MG MAMM SCREEN 3D JUDY CADon 03-08-2022 MG MAMM SCREEN 3D JUDY CAD Patient: ZAKI HUMPHREY Exam Date: 03/08/2022 : 1980 Gender:F Ordering : DR SHAY JOSEPH . Admission #: [id number] Family : Order #: [id number] CLICK HERE TO VIEW EXAM RADIOLOGY REPORT PROCEDURE: MAMMOGRAM SCREENING 3D BILATERAL CAD COMPARISON: MAMMO POST BIOPSY LEFT, 08/08/2016. MG MAMM LT DIAG W CAD, 03/07/2017. INDICATIONS: Screening mammography Calculator Name NCI Breast Cancer Risk Assessment Tool 5 Year Breast Cancer Risk 1.80% Lifetime Breast Cancer Risk 17.40% Personal Breast Cancer No Personal Ovarian Cancer No Treatments None Family Cancers Grandfather-maternal with throat cancer at age 70; Aunt-maternal with lung cancer at age 22. LOCATION: [facility] BREAST COMPOSITION: Scattered areas fibroglandular density. FINDINGS: DIAGNOSTIC CATEGORY 2--BENIGN FINDING. NO CHANGE FROM COMPARISON. Scattered benign-appearing calcifications are present. RIGHT BREAST: No significant suspicious finding. LEFT BREAST: No significant suspicious finding. Area of focal asymmetry upper outer quadrant with associated micro clip marker, stable RECOMMENDATIONS: ROUTINE MAMMOGRAM AND CLINICAL EVALUATION IN 12 MONTHS. PLEASE NOTE: A NORMAL MAMMOGRAM DOES NOT EXCLUDE THE POSSIBILITY OF BREAST CANCER. A CLINICALLY SUSPICIOUS PALPABLE LUMP SHOULD BE BIOPSIED. Dictated by: Ronny Telles MD on 03/08/2022 at 11:21 Approved by: Ronny Telles MD on 03/08/2022 at 11:[address] [facility] PREG QUANT HCGon 03-08-2022 HCG QUANT 1 mIU/mL Normal [facility] Comment on above: Performed By: #### P REGQNT, TSH ####[facility] [id number] [place], [place] [address]GpDr. Rin Pride HCG RANGE SEE BELOW Normal [facility] Comment on above: Result Comment: 5-50 0.2-1 WEEK 50-500 1-2 WEEKS 100-5,000 2-3 WEEKS 500-10,000 3-4 WEEKS 1,000-50,000 4-5 WEEKS 10,000-100,000 5-6 WEEKS 15,000-200,000 6-8 WEEKS 10,000-100,000 2-3 MONTHS Performed By: #### P REGQNT, TSH ####[facility] [id number] [address]Dr. Rin Pride PROTIMEon 03-08-2022 INR Coag (PPP) [Relative time] 0.97 {INR} Normal [facility] Comment on above: Performed By: #### P TT, PT #### [facility] [address] [address] [address] Rin Pride INR GUIDELINES SEE BELOW Normal [facility] Comment on above: Result Comment: PANCHO RED INR: 2.0 - 3.0 CONDITIONS NOT LISTED BELOW 2.5 - 3.5 FOR PROSTHETIC HEART VALVE REPLACEMENT 2.5 - 3.5 RECURRENT THROMBOSIS Performed By: #### P TT, PT #### [facility] [address] [address] [address] Rin Pride PT Coag (PPP) [Time] 10.5 s Normal 9.0-11.6 [facility] Comment on above: Performed By: #### P TT, PT #### [facility] [address] [address] [address] Rin Pride PTTon 03-08-2022 aPTT Coag (Bld) [Time] 27.6 s Normal 22.3-36.2 [facility] Comment on above: Performed By: #### P TT, PT #### [facility] [address] [place] [address] Dr. Rin Pride TSHon 03-08-2022 TSH 3.358 uIU/mL Normal 0.358-3.740 [facility] Comment on above: Performed By: #### P REGQNT, TSH ####[facility] [id number] [address]Dr. Rin Pride US PELVIS AND TRANSVAGon US PELVIS AND TRANSVAG EXAMINATION: US PELVIS AND TRANSVAG HISTORY: Excessive and frequent menstruation COMPARISON: No relevant comparison available. TECHNIQUE: Transabdominal and transvaginal sonographic examination. FINDINGS: UTERUS: Normal size and appearance. Uterus size: 9.1 x 4.4 x 5.9 cm. ENDOMETRIUM: Normal homogeneous appearance. Endometrial thickness: 13 mm RIGHT OVARY: Normal size and appearance. Duplex Doppler demonstrates normal waveform and flow; resistive index 0.4. Ovary size: 2.4 x 1.6 x 2.3 cm LEFT OVARY: Contains a thick-walled 1.8 cm cyst. Duplex Doppler demonstrates normal waveform and flow; resistive index 0.6. Ovary size: 2.2 x 2.7 x 2.1 cm CUL-DE-SAC: Unremarkable. No significant free fluid. BLADDER: Unremarkable. OTHER: None. IMPRESSION: 1. Unremarkable endometrium and uterus. 2. Complex left ovarian cyst. Follow-up ultrasound in 6 weeks is recommended to document regression. Electronically authenticated by: HOLA SUAREZ Date: 2022-03-08 17:10 Normal [facility] METABOLIC PANE [facility] 2021 Albumin [Mass/Vol] 4.4 g/dL Normal 3.6-5.1 [facility] Comment on above: Performed By: #### 7 600, [id number] #### [facility] [place] [address] Student Services Counselor: Robinson Lange MD Albumin/Globulin [Mass ratio] 2.0 {ratio} Normal 1.0-2.5 [facility] Comment on above: Performed By: #### 7 600, 14169 #### [facility] [place] [address] Student Services Counselor: Robinson Lange MD ALP [Catalytic activity/Vol] 57 U/L Normal 31-125 [facility] Comment on above: Performed By: #### 7 600, [id number] #### [facility] [place] [address] Student Services Counselor: Robinson Lange MD ALT [Catalytic activity/Vol] 17 U/L Normal 6-29 [facility] Comment on above: Performed By: #### 7 600, 91567 #### [facility] of [place] [address] Student Services Counselor: Robinson Lange MD AST [Catalytic activity/Vol] 16 U/L Normal 10-30 [facility] Comment on above: Performed By: #### 7 600, 92253 #### [facility] of [place] [address] Student Services Counselor: Robinson Lange MD Bilirubin [Mass/Vol] 0.5 mg/dL Normal 0.2-1.2 [facility] Comment on above: Performed By: #### 7 600, [id number] #### [facility] of [place] [address] Student Services Counselor: Robinson Lange MD BUN/CREATININE RATIO NOT APPLICABLE Normal 6-22 [facility] Comment on above: Performed By: #### 7 600, 10889 #### [facility] of [place] [address] Student Services Counselor: Robinson Lange MD Calcium [Mass/Vol] 9.4 mg/dL Normal 8.6-10.2 [facility] Comment on above: Performed By: #### 7 600, 68766 #### [facility] of [place] [address] Student Services Counselor: Robinson Lange MD Chloride [Moles/Vol] 105 mmol/L Normal 98-110 [facility] Comment on above: Performed By: #### 7 600, 95459 #### [facility] of [place] [address] Student Services Counselor: Robinson Lange MD CO2 [Moles/Vol] 28 mmol/L Normal 20-32 [facility] Comment on above: Performed By: #### 7 600, 56680 #### [facility] of [place] [address] Student Services Counselor: Robinson Lange MD Creatinine [Mass/Vol] 0.79 mg/dL Normal 0.50-1.10 [facility] Comment on above: Performed By: #### 7 600, 09757 #### [facility] of [address], [address] [place] [address] Student Services Counselor: Robinson Lange MD eGFR NON-AFR. BULGARIAN 94 mL/min/1.73m2 Normal > OR = 60 [facility] Comment on above: Performed By: #### 7 600, 83041 #### [facility] of [address], [address] [place] [address] Student Services Counselor: Robinson Lange MD GFR/1.73 sq M.predicted among blacks MDRD (S/P/Bld) [Vol rate/Area] 109 mL/min/{1.73_m2} Normal > OR = 60 [facility] Comment on above: Performed By: #### 7 600, 69993 #### [facility] of [place] [address] Student Services Counselor: Robinson Lange MD Globulin (S) [Mass/Vol] 2.2 g/dL Normal 1.9-3.7 [facility] Comment on above: Performed By: #### 7 600, 51287 #### [facility] [place] [address] Student Services Counselor: Robinson Lange MD Glucose [Mass/Vol] 85 mg/dL Normal 65-99 [facility] Comment on above: Result Comment: Fasting reference interval Performed By: #### 7 600, 92647 #### [facility] [place] [address] Student Services Counselor: Robinson Lange MD Potassium [Moles/Vol] 4.3 mmol/L Normal 3.5-5.3 [facility] Comment on above: Performed By: #### 7 600, 02078 #### [facility] of [place] [address] Student Services Counselor: Robinson Lange MD Protein [Mass/Vol] 6.6 g/dL Normal 6.1-8.1 [facility] Comment on above: Performed By: #### 7 600, 66284 #### [facility] of [place] [address], [address] [place] [address] Student Services Counselor: Robinson Lange MD Sodium [Moles/Vol] 140 mmol/L Normal 135-146 [facility] Comment on above: Performed By: #### 7 600, 41787 #### [facility] [address], [address] [place] [address] Student Services Counselor: Robinson Lange MD Urea nitrogen [Mass/Vol] 10 mg/dL Normal 7-25 [facility] Comment on above: Performed By: #### 7 600, 63473 #### [facility] [address], [address] [place] [address] Student Services Counselor: Robinson Lange MD LIPID PANEL, [facility] - Cholesterol [Mass/Vol] 188 mg/dL Normal <200 [facility] Comment on above: Order Comment: FASTI NG:YES FASTING: YES Performed By: #### 7 600, 59187 #### [facility] [address], [address] [place] [address] Student Services Counselor: Robinson Lange MD Cholesterol in HDL [Mass/Vol] 66 mg/dL Normal > OR = 50 [facility] Comment on above: Order Comment: FASTI NG:YES FASTING: YES Performed By: #### 7 600, 14520 #### [facility] [address], [address] [place] [address] Student Services Counselor: Robinson Lange MD Cholesterol in LDL [Mass/Vol] 107 mg/dL High [facility] Comment on above: Order Comment: FASTI NG:YES FASTING: YES Result Comment: Refe rence range: <100 Desirable range <100 mg/dL for primary prevention; <70 mg/dL for patients with CHD or diabetic patients with > or = 2 CHD risk factors. LDL-C is now calculated using the Manisha calculation, which is a validated novel method providing better accuracy than the Friedewald equation in the estimation of LDL-C. Bear RAMON et al. KARTHIK. 2013;310(19): 8064-8025 (http://education.MessageParty.Intrapace/faq/IWK316) Performed By: #### 7 600, 22673 #### [facility] [address], [address] [place] [address] Student Services Counselor: Robinson Lange MD Cholesterol.total/Ch olesterol in HDL [Mass ratio] 2.8 {ratio} Normal <5.0 [facility] Comment on above: Order Comment: FASTI NG:YES FASTING: YES Performed By: #### 7 600, 85216 #### [facility] [address], [address] [place] [address] Student Services Counselor: Robinson Lange MD NON HDL CHOLESTEROL 122 mg/dL (calc) Normal <130 [facility] Comment on above: Order Comment: FASTI NG:YES FASTING: YES Result Comment: For patients with diabetes plus 1 major ASCVD risk factor, treating to a non-HDL-C goal of <100 mg/dL (LDL-C of <70 mg/dL) is considered a therapeutic option. Performed By: #### 7 600, 29058 #### [facility] [address], [address] [place] [address] Student Services Counselor: Robinson Lange MD Triglyceride [Mass/Vol] 67 mg/dL Normal <150 [facility] Comment on above: Order Comment: FASTI NG:YES FASTING: YES Performed By: #### 7 600, 78556 #### [facility] [address], [address] [place] [address] Student Services Counselor: Robinson Lange MD Encounters Encounter Date Encounter Type Care Provider Facility Start: 09-05-2023 End: 09-06-2023 ambulatory [facility] Start: 09-05-2023 Encounter for genera l adult medical examination without abnormal findings [facility] Start: 09-05-2023 End: 09-05-2023 ambulatory [facility] Start: 09-05-2023 Encounter for genera l adult medical examination without abnormal findings [facility] Start: 08-30-2023 End: 04-04-2024 ambulatory PAULA SHAW Facility:[facility] Start: 06-21-2023 End: 06-21-2023 ambulatory AMELIA PILLAI Not Available Start: 06-07-2023 End: 06-07-2023 ambulatory AMELIA PILLAI Not Available Start: 05-17-2023 End: 05-17-2023 ambulatory AMELIA PILLAI Not Available Start: 04-10-2023 End: 04-10-2023 ambulatory SHAY JOSEPH Not Available Start: 05-09-2022 End: 05-10-[address] SHAY JOSEPH Facility:[facility] Start: 04-13-2022 End: 04-13-[address] SHAY JOSEPH Facility:[facility] Start: 04-11-2022 Encounter for preprocedural laboratory examination DR SHAY JOSEPH [facility] Start: 04-07-2022 End: 04-08-[address] SHAY JOSEPH Facility:[facility] Start: 04-07-2022 End: 04-08-2022 Encounter for preprocedural laboratory examination DR SHAY JOSEPH Facility:[facility] Start: 03-08-2022 End: 03-09-[address] SHAY JOSEPH Facility:[facility] Start: 03-02-2022 End: 03-02-[address] SHAY JOSEPH Facility:[facility] Payers Date Payer Category Payer Unknown [id number] 1980 Unknown [id number] 2.16.84 [id number] 1980 Unknown [id number] 2.16.84 [id number] 1980 Unknown [id number] 2.16.84 [id number] 1980 Unknown [id number] 2.16.84 [id number] 1980 Unknown [id number] 2.16.84 [id number] 1981 Unknown [id number] 2.16.84 [id number] 1980 Unknown [id number] 2.16.84 [id number] 1980 Unknown [id number] 2.16.840 .[id number] 1980 Unknown [id number] 2.16.840. [id number] 1980 Unknown [id number] 2.16.8 [id number] 1980 Unknown [id number] 2.16.8 [id number] 1981 Unknown [id number] 2.16.8 [id number] 1959 Unknown [id number] Clinical Note 08-30-2023 Note Date & Type Note Facility 08-30-2023 Note Patient Education Ma terials Follows:Disease Viral Respiratory Infection A respiratory infection is an illness that affects part of the respiratory system, such as the lungs, nose, or throat. A respiratory infection that is caused by a virus is called a viral respiratory infection. Common types of viral respiratory infections include: ? A cold. ? The flu (influenza). ? A respiratory syncytial virus (RSV) infection. What are the causes? This condition is caused by a virus. The virus may spread through contact with droplets or direct contact with infected people or their mucus or secretions. The virus may spread from person to person (is contagious). What are the signs or symptoms? Symptoms of this condition include: ? A stuffy or runny nose. ? A sore throat or cough. ? Shortness of breath or difficulty breathing. ? Yellow or green mucus (sputum). Other symptoms may include: ? A fever. ? Sweating or chills. ? Fatigue. ? Achy muscles. ? A headache. How is this diagnosed? This condition may be diagnosed based on: ? Your symptoms. ? A physical exam. ? Testing of secretions from the nose or throat. ? Chest X-ray. How is this treated? This condition may be treated with medicines, such as: ? Antiviral medicine. This may shorten the length of time a person has symptoms. ? Expectorants. These make it easier to cough up mucus. ? Decongestant nasal sprays. ? Acetaminophen or NSAIDs, such as ibuprofen, to relieve fever and pain. Antibiotic medicines are not prescribed for viral infections.This is because antibiotics are designed to kill bacteria. They do not kill viruses. Follow these instructions at home: Managing pain and congestion ? Take chnm-hjh-egwybkz and prescription medicines only as told by your health care provider. ? If you have a sore throat, gargle with a mixture of salt and water 3?4 times a day or as needed. To make salt water, completely dissolve ??1 tsp (3?6 g) of salt in 1 cup (237 mL) of warm water. ? Use nose drops made from salt water to ease congestion and soften raw skin around your nose. ? Take 2 tsp (10 mL) of honey at bedtime to lessen coughing at night. ? Do not give honey to children who are younger than 1 year. ? Drink enough fluid to keep your urine pale yellow. This helps prevent dehydration and helps loosen up mucus. General instructions ? Rest as much as possible. ? Do not drink alcohol. ? Do not use any products that contain nicotine or tobacco. These products include cigarettes, chewing tobacco, and vaping devices, such as e-cigarettes. If you need help quitting, ask your health care provider. ? Keep all follow-up visits. This is important. How is this prevented? ? Get an annual flu shot. You may get the flu shot in late summer, fall, or winter. Ask your health care provider when you should get your flu shot. ? Avoid spreading your infection to other people. If you are sick: ? Wash your hands with soap and water often, especially after you cough or sneeze. Wash for at least 20 seconds. If soap and water are not available, use alcohol-based hand scheduling representative. ? Cover your mouth when you cough. Cover your nose and mouth when you sneeze. ? Do not share cups or eating utensils. ? Clean commonly used objects often. Clean commonly touched surfaces. ? Stay home from work or school as told by your health care provider. ? Avoid contact with people who are sick during cold and flu season. This is generally fall and winter. Contact a health care provider if: ? Your symptoms last for 10 days or longer. ? Your symptoms get worse over time. ? You have severe sinus pain in your face or forehead. ? The glands in your jaw or neck become very swollen. ? You have shortness of breath. Get help right away if you: ? Feel pain or pressure in your chest. ? Have trouble breathing. ? Faint or feel like you will faint. ? Have severe and persistent vomiting. ? Feel confused or disoriented. These symptoms may represent a serious problem that is an emergency. Do not wait to see if the symptoms will go away. Get medical help right away. Call your local emergency services (911 in the [place] Do not drive yourself to the hospital. Summary ? A respiratory infection is an illness that affects part of the respiratory system, such as the lungs, nose, or throat. A respiratory infection that is caused by a virus is called a viral respiratory infection. ? Common types of viral respiratory infections include a cold, influenza, and respiratory syncytial virus (RSV) infection. ? Symptoms of this condition include a stuffy or runny nose, cough, fatigue, achy muscles, sore throat, and fevers or chills. ? Antibiotic medicines are not prescribed for viral infections. This is because antibiotics are designed to kill bacteria. They are not effective against viruses. This informati (more content not included)... [facility] Clinical Note 04-13-2022 Note Date & Type Note Facility 04-13-2022 Note OPERATIVE NOTE OPERATION DATE: 04/13/2022 PROCEDURE: Martha endometrial ablation with hysteroscopy. PREOPERATIVE DIAGNOSIS: Menorrhagia. POSTOPERATIVE DIAGNOSIS: Menorrhagia. ANESTHESIA: General. SURGEON: Shay Joseph D.O. BANK RECONCILIATOR: None. BLOOD LOSS: 5 mL. URINE OUTPUT: Yellow and clear. SPECIMEN: None. FINDINGS: Both ostia seen. No gross evidence of polyps, fibroids or malignancy. PROCEDURE: The patient was taken back to the OR where she was prepped and draped in the normal sterile fashion after being placed in the dorsal lithotomy position, after being placed under general anesthesia without difficulty. A weighted speculum was placed into the vagina. The anterior lip was grasped with a single tooth tenaculum. The patient was then sounded to approximated 8 cm. The patient's cervix was gently dilated using Hegar dilators. The hysteroscope was passed through the cervix into the uterus where both ostia were seen. No gross evidence of polyps, fibroids or malignancy. The cervical length was noted to be 4 cm. The total cavity length is 4 cm. The Martha ablation apparatus was set to approximately 4 cm in length. This was placed through the cervix and into the uterus. After the seal was tested, at that time the total ablation of 120 seconds was performed with the Martha without difficulty. All instruments were removed from the vagina. Excellent hemostasis noted. Sponge and lap count correct times 2. Patient taken to recovery in stable condition. [facility] Summary Purpose Family History No Family History Records FoundNo Family History Records FoundNo Family History Records FoundNo Family History Records FoundNo Family History Records FoundNo Family History Records Found Advance Directives No Advanced Directives Records FoundNo Advanced Directives Records FoundNo Advanced Directives Records FoundNo Advanced Directives Records FoundNo Advanced Directives Records FoundNo Advanced Directives Records Found Additional Source Comments INFORMATION SOURCE (unrecogn ized section and content) DATE CREATED AUTHOR 03/27/2021 [facility] DATE CREATED AUTHOR AUTHOR'S ORGANIZ ATION 06/15/2022 [facility] DATE CREATED AUTHOR AUTHOR'S ORGANIZ ATION 06/22/2023 [facility] DATE CREATED AUTHOR AUTHOR'S ORGANIZ ATION 09/06/2023 [facility] DATE CREATED AUTHOR AUTHOR'S ORGANIZ ATION 09/07/2023 [facility] DATE CREATED AUTHOR AUTHOR'S ORGANIZ ATION 10/04/2023 [facility] FOR RECORDS PERTAINING TO PATIENTS WHO ARE OR HAVE BEEN ENROLLED IN A CHEMICAL DEPENDENCY/SUBSTANCEABUSE PROGRAM, SOME INFORMATION MAY BE OMITTED. This clinical summary was aggregated from multiple sources. Caution should be exercised in using it in the provision of clinical care. This summary normalizes information from multiple sources, and as a consequence, information in this document may materially change the coding, format and clinical context of patient data. In addition, data may be omitted in some cases. CLINICAL DECISIONS SHOULD BE BASED ON THE PRIMARY CLINICAL RECORDS. [facility] [email or web address] [facility]. provides no warranty or guarantee of the accuracy or completeness of information in this document.
== END 2024-04-11 07:27 | disposition home or self-care (01) ==
LOC: MAMMO 07:26
PROVIDERS: Visit Provider Obstetrics & Gynecology
DX: Z12.31 Encounter for screening mammogram for malignant neoplasm of breast (principal); Z80.1 Family history of malignant neoplasm of trachea, bronchus and lung; Z80.8 Family history of malignant neoplasm of other organs or systems
CPT/HCPCS: 77063; 77067

== ENCOUNTER 2024-05-15 18:58 | Outpatient (REF) | payer OTHER, SELFPAY ==
--- OUTSIDE RECORDS SUMMARY | 2024-05-15 19:01 | XMS_ITS | CCD ---
Author Organization [facility] Care Team Providers Care Healthcare Management Consultant Name Role Phone AIXA, DR DAY Admitting [...] 09-05-2023 Albumin [Mass/Vol] 4.3 g/dL Normal 3.2-5.3 [facility] Comment on above: Performed By: #### C PINO, 53705-8 #### [facility] ([id number]) [address], [address] [place] [address] ALP [Catalytic activity/Vol] 68 U/L Normal 39-130 [facility] Comment on above: Performed By: #### C PINO, 78692-7 #### [facility] ([id number]) [address], [address] [place] [address] ALT [Catalytic activity/Vol] 34 U/L High 0-31 [facility] Comment on above: Performed By: #### Sandra PRINGLE, 39286-7 #### [facility] ([id number]) [address] [place] [address] Anion gap [Moles/Vol] 7 mmol/L Normal 5-15 [facility] Comment on above: Performed By: #### Sandra PRINGLE, 55641-9 #### [facility] ([id number]) [address], [address] [place] [address] AST [Catalytic activity/Vol] 24 U/L Normal 0-41 [facility] Comment on above: Performed By: #### Sandra PRINGLE, 09786-6 #### [facility] ([id number]) [address], [address] [place] [address] Bilirubin [Mass/Vol] 0.5 mg/dL Normal 0.3-1.2 [facility] Comment on above: Performed By: #### Sandra PRINGLE, 20511-0 #### [facility] ([id number]) [address] [place] [address] Calcium [Mass/Vol] 9.5 mg/dL Normal 8.5-10.5 [facility] Comment on above: Performed By: #### Sandra PRINGLE, 35072-6 #### [facility] ([id number]) [address], [address] [place] [address] Chloride [Moles/Vol] 105 mmol/L Normal 98-109 [facility] Comment on above: Performed By: #### Sandra PRINGLE, 74492-8 #### [facility] ([id number]) [address] [place] [address] CO2 [Moles/Vol] 31 mmol/L Normal 22-32 [facility] Comment on above: Performed By: #### Sandra PRINGLE, 77851-6 #### [facility] ([id number]) [address] [place] [address] Creatinine [Mass/Vol] 0.69 mg/dL Normal 0.40-1.00 [facility] Comment on above: Result Comment: METH OD TRACEABLE TO IDMS STANDARD Performed By: #### Sandra PRINGLE, 84914-3 #### [facility] ([id number]) [address], [facility] [address] [place] [address] eGFR (CKD-EPI) NON-RACE DEPENDENT >90 Normal >59 [facility] Comment on above: Result Comment: Reported eGFR is based on the CKD-EPI 2020 equation that does not use a race coefficient. Performed By: #### Sandra PRINGLE, 35228-7 #### [facility] ([id number]) [address] [place] [address] Glucose [Mass/Vol] 88 mg/dL Normal 65-99 [facility] Comment on above: Performed By: #### Sandra PRINGLE, 84187-5 #### [facility] ([id number]) [address] [address] [place] [address] Potassium [Moles/Vol] 4.3 mmol/L Normal 3.5-5.0 [facility] Comment on above: Performed By: #### Sandra PRINGLE, 46649-3 #### [facility] ([id number]) [address] [place] [address] Protein [Mass/Vol] 7.0 g/dL Normal 6.0-8.0 [facility] Comment on above: Performed By: #### Sandra PRINGLE, 07301-0 #### [facility] ([id number]) [address] [place] [address] Sodium [Moles/Vol] 143 mmol/L Normal 134-146 [facility] Comment on above: Performed By: #### Sandra PRINGLE, 86638-1 #### [facility] ([id number]) [address], [facility] [address] [place] [address] Urea nitrogen [Mass/Vol] 13 mg/dL Normal 5-23 [facility] Comment on above: Performed By: #### Sandra PRINGLE, 45970-4 #### [facility] ([id number]) [address], [facility] [address] [place] [address] Lipid 1996 panelon 4 Cholesterol [Mass/Vol] 151 mg/dL Normal 150-200 [facility] Comment on above: Performed By: #### Sandra PRINGLE, 04163-0 #### [facility] ([id number]) [address], [facility] [address] [place] [address] Cholesterol in HDL [Mass/Vol] 50 mg/dL Normal >39 [facility] Comment on above: Result Comment: HDL <40 mg/dL - High Risk HDL > or = 40mg/dL- Desirable HDL >60 mg/dL - Negative Risk Performed By: #### Sandra PRINGLE, 96054-7 #### [facility] ([id number]) [address], [address] [address] Cholesterol in LDL [Mass/Vol] 80 mg/dL Normal <130 [facility] Comment on above: Result Comment: LDL <100 mg/dL - Desirable LDL >160 mg/dL - High Risk Performed By: #### Sandra PRINGLE, 63460-5 #### [facility] ([id number]) [address] [place] [address] Cholesterol in VLDL [Mass/Vol] 21 mg/dL Normal 0-30 [facility] Comment on above: Performed By: #### Sandra PRINGLE, 12926-0 #### [facility] ([id number]) [address] [place] [address] CHOLESTEROL:HDL 3.0 Normal 1.0-5.0 [facility] Comment on above: Performed By: #### Sandra PRINGLE, 31901-6 #### [facility] ([id number]) [address] [place] [address] Triglyceride [Mass/Vol] 107 mg/dL Normal 27-150 [facility] Comment on above: Performed By: #### Sandra PRINGLE, 72068-6 #### [facility] ([id number]) [address] [place] [address] Coding Summaryon 09-03-2023 Coding Summary HTMLBase 64 SiiidzjwPWn5aCe+PGhlY WQ+PP7NNFQsM77arTAqkC 8xF8NCEDiZJklbQCBKOYr TOfApvzNcQM6zpVGlUTGa IC8+YV3yJWGhZrclxKQpw 6O2nKS1N60gml5lRZpzbP L9EDFcMdNofbwan9jlwIv 6IDcuNmluOyBt IZRkxA99DDI1rM28Nu71k ZTtvKIhm7kwvLm1UwQnOL DmLQR3yLmmARpxb4JcRPK iN29lrCWtw8P8 IJUleSwlfTVeJbBihTF0c B5oVYzkxyhpe5qqhhgeIm n8tn08hXJhc4I2vQC1X4O jyqO4SFZrbLBz GhvjaZVMgE8yqtsse5jwe eshDqSyMVFiENe3HGd4KM HzoVbtPmNrRG24XQX6DSM vfoMjS0YbVGBi zChlYaF4a3F9Vp3DF5WXG fekS2QUZPNGJFxoqMB+PC 40ef89P8CzIofoPlh5JWK oCGS2tFM4uA8q OENlQWoju8V0eEU6V4Mqz tFvvh9xs2pnCVVmNNqzJ4 0yfERpk7X2ZVOcyUV5IGP jfFrcTrVcpH20 Oyc+ZYRetPsuj1SvWfuff 8sep0mypLc4ZutjAGUeeq OduLbdTGK4m9UzRe2fLLZ leMQ6cGK2gB5z IeRxOwM4RBufK821YcQuy XQtWuheF64pA2YhtMA+PH IkLtn2CDXnqWnsSM6xK5N hZGRpbmctbGVm kLikOG9jRZXlujriFKKgj S9wGFCbY9y4QcXfBzL4JE nqZ6ZwMDVlvfnbQl75xC6 rNuGwPzH7XVqt I9FyygL1FQYkcDKcMUsaU AV2W91cq6G5DEPnWFYxXL F1jPM3lR2isVpbpwrriNQ mdDsgdmVydGlj CGshLCrwZ793AUJxwNhpA kNvZGluZyBEYXRlOiAgMD QvMDgvMjAyNDwvdGQ+PHR pOBQ5cFdsKAXd rEVqTWtkUp4yvFdrmXpvW P3cTFVmwtptCNMsdB7lGP JwyAHqsWpeVR5mFNKrnev ye895BrZrOIM0 HHFhmVZdD2XubY4kKjWeK WBbGKAtR5UuxKAlTYjoN3 61UJetBgH4WUSbseUvY7S sLWFsaWduOiB0 o7E8Or3Xf5PuttjmE9Hqr BRrNdMvYwliCMk7T8RjRi wvdHI+NL89RSXrZJ84QHn 1WJD1nEjwFFxg ADMcJ6UloV8jNmUvGCGwJ GRkOyc+PHRhYmxlIHdpZH RoPScxMDAlJyBzdHlsZT0 yYh1fCKQdFXCw dIxlrNWtHlXxt3wpOYQhR HohRK0dfIrbC5YxeCT8KG Mgp9r7Mw07S35lC2PmgTE +HLXbdDQ4qBV4 gB6nDxJhLcD8SMjfW972W yGqpOXvZomzs9bey0arjF t7QoP4MIVqvhFbrIppDGG 2d2EiQo66H92a IHdpZHRoPSIxNSUiIHZhb Cdxvu8syB5vWm8+PGNvbC H1xEJ5dZ3oFaXmJcS0IUo dN357XvYegWCc Qdicc7heb8szvBu2HgNyI FDriySytOehQCW2f8BtLg 16E6TxtYsmc9HhDap0fp2 6sBPbb6Y9sBW4 K8LoSFUgmqyycBYihIgwZ N9dSKWdqmmtUZYoaG7wIX PmJ6n6KeDiMtY1TWgdZ0H afrF5LVEdaHNk JGGvdZMRgV9jdozmw8eqm gcdMuXiZYSsIVp1VDa4DV GnzZwfXzGiCFT3AlP8KES 2kXDnnH7dxKux lslqtP9fGcc+AWF4mBBzy VBTTQ4gWwlgvCE+PHRkIH N8yBuiNLawPYWmrH9jVAT rR4p6AnAaIiZ5 NXlbR9HnbvH1WOKsnSAuX ACjnGRQhM8asdkzo7ssmn jjRqXyBBVsEFb8YIg0FRW saWduOiBsZWZ0 KkR4CTU9bBHvbH3zlYkoe urhmJ8mVkn+QmlydGggRG Q3FAy1M4LpIpu8LMJtiEv bOT5ehBVbPJnd Sk1mnYquyXukPI1qQDBis nhug619WwCjg6uwITDowU VwSHvsAQV6H92bs4D1QVE qKWXaFQL7eBY2 bN8mqUpicreukULpoQliw tMxvUlmSTivEJliE416RW CipHjzIlIdBSn7H4IbTcf 0TZIvmKblZM9t cNXhXVkmDa5glIjiyNmsT P4kZTPutwxsf593MnEtc1 fzRKFjsIDpPLsbKGB0Q11 td2U8TVTrCDRf QBC4cVQ2fT3crLqvqflsn GVmdDsgdmVydGljYWwtYW elJ752IHZyoKvhBzQdmFu 6T6ShMqy7PHIq iZeoHV9acUOaGPydZm1di UsvqZowCH0gDNMjtsmku0 85YyBql3yeROEkzDPcTSr gKAO2I05nx3K8 OCDbLSBtFBG1fBW5nG2gf GlnbjogbGVmdDsgdmVydG qsIZzdOAqqI705IRLwiXf nPlBhdGllbnQg BTcrYDq5G3DyIdrcfJO+P S15PWHvJQ52yJRtyDLkm6 mcyLb5MfRtYMZgZUF6kWu nRSwlt6QeIEBe T57cbYPzm1R9QMOxvBgdt LNcWiXnlVV9nD1oCOkrbz mgp5usnxobKdrsr8dlel0 3lO01R31oHQph ZHRoPSIzMCUiIHZhbGlnb s0uwC8jEn9+SLYebHH1vW K5dO5jKBTjLpJ2IDwzI58 9InRvcCIvPjxj h9fwe3tnlTb6AdP9QXUak hYuxOdbYOZ7s6QsSn65J9 9sIHdpZHRoPSIyMCUiIHZ gfGjjnm2qdD5n Ii8+UQKitWN4lAY6mZ1hP nSyRaV5AXggT884RsPduX XiNcdwR66lB3EosAN+PHR lEpa4GWPwzGgv FS6zlKLdBNorEy5dMVR6N oWkIyWxFVqhV8GlTTUihy jmtbtroZY4QWPrWAHujD2 7Ay0jiGdlDCHs eACCrJ5etcrtu9pgotcqJ cMxSHEmMYf5CDh7KKPdrC acWaJxJMC6BpB2KLE1wHI dhV2yeSdtmqzh cS7kY3LwQKVknawpGn02c M5zBuSrNsW2BFrnWeg+QU KNZp2PJWgWYHUMEkNTVDc BVEhFUklORTwv dGQ+UMViEZD6hKykNJnzW SMfwA3xSXVrU0k6HnYxUm G4XXllI0MyNKGdovmxUa9 1sU3xCbFhDhA6 HRbaO2RccvD9BEMzsWFcG XxfLXH3F59mx8B8POPwBR WpCED3lMI7eQ2kaQmrjod gbGVmdDsgdmVy fVolFDaxCKqtR788RMPiu NxcPgP6FiA9JrL6MTL2P6 KySut7LVCliZrsPY5nrOJ dFNfdTe8tkGij gYouKW7wJMDsqjtxXDLvy F5rZWJphVVayBqsQU0cKP Ijkqyin064OmAtKUQ8IJK scKTzI8EoeM4d XuFxQVWuSWQoB7NjgTJzS GthB203AAyhQmV0CSRhpy PgD7ZqKSJtpQbhCgE3l5A 5Qr01TdIOCIHa czwvdGQ+QQTiOSG4iTujZ ChfZYIagR7jGNGyD4s9Lu AeFbX4UNiaI8WfZYSpkvz oLz85nQ1iMwZv QiP9ICvdO6HpfaN4UFGhu WEyLKaiWDF2M32qz6A3BU HcVDFlTGX8cCX5tS7hzFi nbjogbGVmdDsg agYdyJhtIFfbSVphG064F HRvcDsnPkZFTUFMRTwvdG Q+IUKeJMQ5nOqbEUinIIP zaF7lPUGoO1s5 UbHcRdV9MBojU2MwPOLsc sgyQw47oP3yDvCxNtM8TJ haY3IvyaD3LAGzrTYgPVc iZQD0H87rc1B7 LUVnXCUcMHR8mMS0tB6ao GlnbjogbGVmdDsgdmVydG wiTSfnGJrfF218IXPpxUh aNj8GGM53DA15 Y4FxDrtwuNPqpRU+PHRhY mxlIHdpZHRoPScxMDAlJy NksNfaQY5hVs2mSOQwGVH vbGxhcHNlOiBj n1qaJJFzKIprGN9etKndV 0NxfGS3PCSis1w4Fl58H1 8xG5HfjWE+SEYvdOX9gJT 0yP5kNsXbRqL8 KDkaI666OgMdhMZaUkdzs 6wal6ivmIc0SmHzNBLxkz PqwHblHWG7n6YqLs87I42 sIHdpZHRoPSIy WJVpDKCddVpldx4ooR5qC i8+BJVakTM3jXP6nV8sMb RhVoG9NNsyJ005BcHbaIS fZablK77lT7Yi dXA+LDHcUwg1APCoeBumT G0kpQGhGDfwOp0dJCZ0Vk TgQaRzPNhsK7WwKVDkrpl vpqzyuXC6PZAn UECykV98Xu3xjItjAb3jX SMdWUP6ZHRjpGGlX4ItvJ 1iFhSiQBFmHZXoA7ExjHA uREkkV992AWfz KhD3WVMibnCqG7CtXDXch HrvKvK8j2L0Za0GbBvzzO RqMG6vMuHhBRx8R8CfMmq 2BKRxoQwqJO5r kOLqTTgtBp3caGcizNvwO W4dNKMfwgemp114QfArw8 ueOJTmsJCoPZujUPL7D86 qw3Z4RWJcONCr OBT3tGX0rM2rbCnycnbnr GVmdDsgdmVydGljYWwtYW hbY608ACOkjUnyNnSACws 5U1CjZom6OBPz zIiuLC0ikRIeECkxXs3ir ZyflIyrEZ1oDTIwxznnf7 39UtIlt1emXUJkdEHpRGd jJEI6O13vo2S1 QLSrIYHqYCX5nJY6lM3qx GlnbjogbGVmdDsgdmVydG jwRHthBFoyB305GHLolRw sPd1GJeu7X7Ls Qen9VJJykJrdGG0dpZEjZ UreSl0apYfrfMqtLC0hCK Plqwnxp032TdTqp8vuWXS wcHQgVGltZXM7 V48ih5U7EJPtXVExCKQ2t XO0rG2fwVwdnwgkkABksY mdsqMygSgvXJstEFtoI14 6IHRvcDsnPlBh eWVyOjwvdGQ+WK32fc83E 1PfJqupRfb4RWMjINO1bF O3iK2lSUJpKCoda9M0lMV 0F3JlxwPbgk5n b2x (more content not included)... Normal [facility] C Throaton 09-01-2023 C Throat Ordered by Discern. Normal throat [place] isolated No pathogens isolated [facility] Comment on above: Performed By: #### 4 [id number], [id number] #### [facility] (DEFAULT) [address] [place] [address] ED Clinical Summaryon 2023 ED Clinical Summary [facility] ? Urgent Care [address] [place] [address] Clinical Summary PERSON INFORMATION Name: ZAKI HUMPHREY Age: 43 Years Sex: FEMALE : 1980 MRN: Acct#: Visit Reason: Cough; Ear pain; Throat pain - Adult; SORE THROAT, COUGH Arrival: 08/30/2023 13:43:15 Discharge: 08/30/2023 14:29:00 LOS: 000 00:46 Check In: 08/30/2023 13:43:15 Checkout: 08/30/2023 14:29:00 Address: [address] [place] [address] PCP: MARY KATE EAGLE PROVIDER INFORMATION Provider Role Assigned Unassigned PAULA MACHADO ED PA 08/30/2023 13:45:37 Stacey Ware CLAIMS COLLECTOR Nurse 08/30/2023 13:55:45 VITALS INFORMATION Vital Sign [...] Follow-Up: With: Address: When: MARY KATE EAGLE [address] [place], [place] [address] [phone] Business (1) Within 2 to 4 days Comments: Follow-up with primary care provider next couple days for reevaluation. Continue supportive care with plenty of rest and fluids, Tylenol for aches and pains and low-grade fevers. Use honey as a natural cough suppressant, salt water gargle to help with sore throats, Vicks vapor rub for congestion and ksji-ltp-viyzeki medication such as Mucinex to help with congestion. Having any significantly worsening issues such as crushing chest pains, shortness of breath, high spiking fevers of 103 or greater, intractable vomiting, abdominal pains or any other issue please go directly to the emergency department. DIAGNOSIS: Exposure to influenza; Influenza B Patient Understands: Yes - Patient/family/caregi rosemary verbalizes understanding of instructions given Comment: Normal [facility] ED Patient Summaryon 024 ED Patient Summary [facility] ? Urgent Care [address] [place] [address] PATIENT DISCHARGE INSTRUCTIONS Patient Information Name: ZAKI HUMPHREY Age: 43 Years Date of : 1980 [facility]: [id number] Reason For Visit: Cough; Ear pain; Throat pain - Adult; SORE THROAT, COUGH Arrival Time: 08/30/2023 13:43:15 Primary Care Physician: MARY KATE EAGLE Attending Physician: PAULA MACHADO Comment: Patient Education With: Address: When: MARY KATE EAGLE [facility] [place] [address] Business (1) Within 2 to 4 days Comments: Follow-up with primary care provider next couple days for reevaluation. Continue supportive care with plenty of rest and fluids, Tylenol for aches and pains and low-grade fevers. Use honey as a natural cough suppressant, salt water gargle to help with sore throats, Vicks vapor rub for congestion and lcka-uzz-cvxjley medication such as Mucinex to help with [...] home: Managing pain and congestion ? Take ztlk-qap-oyiacae and prescription medicines only as told by [...] water are not available, use alcohol-based hand facility maintenance worker. ? Cover your mouth when you cough. [...] face or forehe (more content not included)... [facility] POCT Rapid CoV-2 (COVID-19) Antigen/ Flu A&Bon 08-30-2023 Influenza A POCT Negative Normal Negative [facility] Comment on above: Performed By: #### 4 [id number] #### [facility] (DEFAULT) [address] [place] [address] Influenza B POCT Positive Abnormal Negative [facility] Comment on above: Performed By: #### 2 [id number] #### [facility] (DEFAULT) [address] [place] [address] SARS-CoV-2 (COVID-19) RNA PREET+probe Ql (Unsp spec) Not detected [facility] Comment on above: Performed By: #### 6 [id number] #### [facility] (DEFAULT) [address] [place] [address] Strep Aon 08-30-2023 Strep procedure control Pass [facility] Comment on above: Performed By: #### 4 [id number] #### [facility] (DEFAULT) [address] [place] [address] Streptococcus A Negative Normal Negative [facility] Comment on above: Performed By: #### 4 [id number] #### [facility] (DEFAULT) [address] [place] [address] Urgent Care Note- Provideron 08-30-2023 Urgent Care [...] All Problems Genital herpes / SNOMED CT [id number] / Confirmed Objective CONST: -Well-developed well-nourished. -Acute distress: No -Vitals: reviewed. SKIN: -Gross abnormalities: No EYES: -EOM intact, EZIO: -Sclera conjunctiva: Unremarkable. ENT: -Posterior pharynx pink and moist uvula midline tolerating oral secretions without any problems. No tripoding or hot potato voice appreciated -Bilateral ear canals clear, tympanic membranes pearly desouza. NECK: -Supple (kmqm-vs-dqdoj): non-tender. CARD: -Rate and rhythm: Regular RESP: -Respiratory effort and chest excursion with respirations: Normal -Breath sounds equal bilaterally: Clear -Wheezes: No -Rales: No NEURO: -Patient: alert -Oriented to: person, place and time. -Appearance and judgment: appropriate. Impression and Plan Assessment and Plan: Diagnosis: Exposure to influenza (TAG29-VJ Z20.828), Influenza B (OXV28-OA J10.1). Orders Orders Laboratory: Rapid Strep (Order): [...] [Verified on: 08/30/2023 14:22 EDT] PAULA MACHADO [facility] [place] 024 Urgent Care Record [facility] ? Urgent Care [address] [place], [place] [id number] PATIENT DISCHARGE INSTRUCTIONS Patient Information Name: ZAKI HUMPHREY Age: 43 Years Date of : 1980 Reason For Visit: Cough; Ear pain; Throat pain - Adult; SORE THROAT, COUGH Arrival Time: 08/30/2023 13:43:15 Primary Care Physician: MARY KATE EAGLE Attending Physician: PAULA MACHADO Comment: Visit Diagnosis: Diagnoses This Visit Cough ([id number]) Ear pain ([id number]) Exposure to influenza (Z20.828) Influenza B (J10.1) Throat pain - Adult ([id number]) If you received any narcotics, sedation, or [...] Address: When: MARY KATE Fall [place] [address] Business (1) Within 2 to 4 days Comments: Follow-up with primary care provider next couple days for reevaluation. Continue supportive care with plenty of rest and fluids, Tylenol for aches and pains and low-grade fevers. Use honey as a natural cough suppressant, salt water gargle to help with sore throats, Vicks vapor rub for congestion and dcdq-lar-kliyhcq medication such as Mucinex to help with congestion. Having any significantly worsening issues such as crushing chest pains, shortness of breath, high spiking fevers of 103 or greater, intractable vomiting, abdominal pains or any other issue please go directly to the emergency department. Medication Information: The exam and treatment you received today in the [facility] were for an urgent problem and are not intended as complete care. It is important for you to follow up with a doctor, nurse practitioner, or physician?s sales assistant institutional sales for ongoing care. If your symptoms become [...] so we can reach you if necessary. [facility] has provided you with a complete list of medications post discharge. Please inform your board attendant/provider of your visit and for further instruction [...] or chills. (more content not included)... Normal [facility] US PELVIS AND TRANSVAGon US PELVIS AND [...] HOLA SUAREZ Date: 2022-05-09 16:44 Normal [facility] CBC AUTO DIFFon 04-13-2022 BASO # 0.0 103/ul Normal 0.0-0.1 [facility] Comment on above: Performed By: #### C BC #### [facility] Laboratory [address] [place] [address] Dr. Rin Pride Basophils/100 WBC (Bld) 0.5 % Normal 0.2-2.0 [facility] Comment on above: Performed By: #### C BC #### [facility] [address] [place] [address] Dr. Rin Pride EO # 0.1 103/ul Normal 0.0-0.7 [facility] Comment on above: Performed By: #### C BC #### [facility] [address] [place] [address] Dr. Rin Pride Eosinophils/100 WBC (Bld) 2.2 % Normal 0.9-7.0 [facility] Comment on above: Performed By: #### C BC #### [facility] [address] [place] [address] Dr. Rin Pride Erythrocyte distribution width (RBC) [Ratio] 12.1 % Normal 11.0-15.0 [facility] Comment on above: Performed By: #### C BC #### [facility] [address] [place] [address] Dr. Rin Pride Hematocrit (Bld) [Volume fraction] 41.8 % Normal 36.0-48.0 [facility] Comment on above: Performed By: #### C BC #### [facility] [address] [place] [address] Dr. Rin Pride Hemoglobin (Bld) [Mass/Vol] 14.1 g/dL Normal 12.0-16.0 [facility] Comment on above: Performed By: #### C BC #### [facility] [address] [place] [address] Dr. Rin Pride IG # 0.01 10e3/ul Normal 0.00-0.03 [facility] Comment on above: Performed By: #### C BC #### [facility] [address] [place] [address] Dr. Rin Pride IG % 0.2 % Normal 0.0-0.5 [facility] Comment on above: Performed By: #### C BC #### [facility] [address] [place] [address] Dr. Rin Pride LYMPH # 2.6 103/ul Normal 1.2-3.8 [facility] Comment on above: Performed By: #### C BC #### [facility] [address] [place] [address] Dr. Rin Pride Lymphocytes/100 WBC (Bld) 43.8 % Normal 20.5-60.0 [facility] Comment on above: Performed By: #### C BC #### [facility] [address] [place] [address] Dr. Rin Pride MANUAL DIFF REQ NO Normal [facility] Comment on above: Performed By: #### C BC #### [facility] [address] [place] [address] Dr. Rin Pride MCH (RBC) [Entitic mass] 32.4 pg Normal 26.7-34.0 [facility] Comment on above: Performed By: #### C BC #### [facility] [address] [place] [address] Dr. Rin Pride MCHC (RBC) [Mass/Vol] 33.7 g/dL Normal 29.9-35.2 [facility] Comment on above: Performed By: #### C BC #### [facility] [address] [place] [address] Dr. Rin Pride MCV (RBC) [Entitic vol] 96.1 fL Normal 81.0-99.0 [facility] Comment on above: Performed By: #### C BC #### [facility] [address] [place] [address] Dr. Rin Pride MONO # 0.5 103/ul Normal 0.3-0.8 [facility] Comment on above: Performed By: #### C BC #### [facility] [address] [place] [address] Dr. Rin Pride Monocytes/100 WBC (Bld) 8.9 % Normal 1.7-12.0 [facility] Comment on above: Performed By: #### C BC #### [facility] [address] [place] [address] Dr. Rin Pride NEUT # 2.7 103/ul Normal 1.4-6.5 [facility] Comment on above: Performed By: #### C BC #### [facility] [address] [place] [address] Dr. Rin Pride Neutrophils/100 WBC (Bld) 44.4 % Normal 43.0-75.0 [facility] Comment on above: Performed By: #### C BC #### [facility] [address] [place] [address] Dr. Rin Pride Platelet mean volume (Bld) [Entitic vol] 11.2 fL Normal 9.5-13.5 [facility] Comment on above: Performed By: #### C BC #### [facility] [address] [place] [address] Dr. Rin Pride PLT 262 103/ul Normal 150-450 [facility] Comment on above: Performed By: #### C BC #### [facility] [address] [place] [address] Dr. Rin Pride RBC 4.35 106/ul Normal 4.20-5.40 [facility] Comment on above: Performed By: #### C BC #### [facility] [address] [place] [address] Dr. Rin Pride WBC 6.0 103/ul Normal 4.0-11.0 [facility] Comment on above: Performed By: #### C BC #### [facility] [address] [place] [address] Dr. Rin Pride PREG HCG QUALon 04-13-2022 , QUAL Negative Normal NEGATIVE [facility] Comment on above: Performed By: #### P REG #### [facility] [address] [place] [address] Dr. Rin Pride Covid-19 PCR (CVDTB)on 03-28 SARS-CoV-2 (COVID-19) RNA PREET+probe Ql (Unsp spec) Not detected Normal NOT DETECTED [facility] Comment on above: Result Comment: This test is not yet approved or cleared by the [place] FDA. When there are no FDA-approved or cleared tests available, and other criteria are met, FDA can make tests available under an emergency access mechanism called an Emergency Use Authorization (EUA). The EUA for this test is supported by the [place] of Health and Human Service's (HHS's) declaration [...] SARS-CoV-2. Performed By: #### C VDTBH #### [facility] [address] [place] [address] Dr. Rin Pride PAP ACOG PANEL 2: 30 to 65on 03-09-2022 . . Normal [facility] Comment on above: Result Comment: Perf ormed at: BA Performed By: #### 4 [id number] #### [facility] [address] [place] [address] Dr. Rin Pride Age Gdln ACOG Testing 30-65 Normal [facility] Comment on above: Performed By: #### 4 [id number] #### [facility] [address] [place] [address] Dr. Rin Pride DIAGNOSIS: Comment Normal [facility] Comment on above: Result Comment: NEGA TIVE FOR INTRAEPITHELIAL LESION OR MALIGNANCY. Performed at: BA Performed By: #### 4 [id number] #### [facility] [address] [address] [address] Rin Pride HPV Aptima Negative Normal Negative [facility] Comment on above: Result Comment: This nucleic acid amplification test detects fourteen high-risk HPV types (16,18,31,33,35,39,45,51,52,56,58,59,66,68) without differentiation. Performed at: =G Performed By: #### 4 [id number] #### [facility] [address] [place] [address] Dr. Rin Pride Methodology: Comment Normal [facility] Comment on above: Result Comment: This liquid based ThinPrep(R) pap test was screened with the use of an image guided system. Performed at: WB Performed By: #### 4 [id number] #### [facility] [address] [place] [address] Dr. Rin Pride Note: Comment Normal [facility] Comment on above: Result Comment: The Pap smear is a screening test designed to aid in the detection of premalignant and malignant conditions of the uterine cervix. It is not a diagnostic procedure and should not be used as the sole means of detecting cervical cancer. Both false-positive and false-negative reports do occur. . Performed at: WB Performed By: #### 4 [id number] #### [facility] [address] [place] [address] Dr. Rin Pride Performed by: Comment Normal [facility] Comment on above: Result Comment: Mayra Whitley, Ross Carrier Driver (ASCP) Performed at: BA Performed By: #### 4 [id number] #### [facility] [address] [place] [address] Dr. Rin Pride Specimen adequacy: Comment Normal [facility] Comment on above: Result Comment: Sati sfactory for evaluation. Endocervical and/or squamous metaplastic cells (endocervical component) are present. Performed at: BA Performed By: #### 4 [id number] #### [facility] [address] [place] [address] Dr. Rin Pride CBC AUTO DIFFon 03-08-2022 BASO # 0.0 103/ul Normal 0.0-0.1 [facility] Comment on above: Performed By: #### C BC #### [facility] [address] [place] [address] Dr. Rin Pride Basophils/100 WBC (Bld) 0.4 % Normal 0.2-2.0 [facility] Comment on above: Performed By: #### C BC #### [facility] [address] [place] [address] Dr. Rin Pride EO # 0.1 103/ul Normal 0.0-0.7 [facility] Comment on above: Performed By: #### C BC #### [facility] [address] [place] [address] Dr. Rin Pride Eosinophils/100 WBC (Bld) 1.6 % Normal 0.9-7.0 [facility] Comment on above: Performed By: #### C BC #### [facility] [address] [place] [address] Dr. Rin Pride Erythrocyte distribution width (RBC) [Ratio] 12.2 % Normal 11.0-15.0 [facility] Comment on above: Performed By: #### C BC #### [facility] [address] [place] [address] Dr. Rin Pride Hematocrit (Bld) [Volume fraction] 41.0 % Normal 36.0-48.0 [facility] Comment on above: Performed By: #### C BC #### [facility] [address] [place] [address] Dr. Rin Pride Hemoglobin (Bld) [Mass/Vol] 13.4 g/dL Normal 12.0-16.0 [facility] Comment on above: Performed By: #### C BC #### [facility] [address] [place] [address] Dr. Rin Pride IG # 0.01 10e3/ul Normal 0.00-0.03 [facility] Comment on above: Performed By: #### C BC #### [facility] [address] [place] [address] Dr. Rin Pride IG % 0.1 % Normal 0.0-0.5 [facility] Comment on above: Performed By: #### C BC #### [facility] [address] [place] [address] Dr. Rin Pride LYMPH # 2.8 103/ul Normal 1.2-3.8 [facility] Comment on above: Performed By: #### C BC #### [facility] [address] [place] [address] Dr. Rin Pride Lymphocytes/100 WBC (Bld) 36.3 % Normal 20.5-60.0 [facility] Comment on above: Performed By: #### C BC #### [facility] [address] [place] [address] Dr. Rin Pride MANUAL DIFF REQ NO Normal [facility] Comment on above: Performed By: #### C BC #### [facility] [address] [place] [address] Dr. Rin Pride MCH (RBC) [Entitic mass] 32.1 pg Normal 26.7-34.0 [facility] Comment on above: Performed By: #### C BC #### [facility] [address] [place] [address] Dr. Rin Pirde MCHC (RBC) [Mass/Vol] 32.7 g/dL Normal 29.9-35.2 [facility] Comment on above: Performed By: #### C BC #### [facility] [address] [place] [address] Dr. Rin Pride MCV (RBC) [Entitic vol] 98.1 fL Normal 81.0-99.0 [facility] Comment on above: Performed By: #### C BC #### [facility] [address] [place] [address] Dr. Rin Pride MONO # 0.6 103/ul Normal 0.3-0.8 [facility] Comment on above: Performed By: #### C BC #### [facility] [address] [place] [address] Dr. Rin Pride Monocytes/100 WBC (Bld) 7.7 % Normal 1.7-12.0 [facility] Comment on above: Performed By: #### C BC #### [facility] [address] [place] [address] Dr. Rin Pride NEUT # 4.1 103/ul Normal 1.4-6.5 [facility] Comment on above: Performed By: #### C BC #### [facility] [address] [place] [address] Dr. Rin Pride Neutrophils/100 WBC (Bld) 53.9 % Normal 43.0-75.0 [facility] Comment on above: Performed By: #### C BC #### [facility] [address] [address] [address] Rin Pride Platelet mean volume (Bld) [Entitic vol] 10.5 fL Normal 9.5-13.5 [facility] Comment on above: Performed By: #### C BC #### [facility] [address] [address] [address] Rin Pride PLT 241 103/ul Normal 150-450 [facility] Comment on above: Performed By: #### C BC #### [facility] [address] [address] [address] Rin Pride RBC 4.18 106/ul Critically low 4.20-5.40 [facility] Comment on above: Performed By: #### C BC #### [facility] [address] [address] [address] Rin Pride WBC 7.6 103/ul Normal 4.0-11.0 [facility] Comment on above: Performed By: #### C BC #### [facility] [address] [address] [address] Rin Pride FREE T4on 03-08-2022 Free T4 [Mass/Vol] 0.85 ng/dL Normal 0.76-1.46 [facility] Comment on above: Performed By: #### F T4 ####[facility] [address] [address]Dr. Rin Pride GLYCOHEMOGLOBIN A1Con 2021 ADA RECOMMENDATION SEE BELOW Normal [facility] Comment on above: Result Comment: ADA RECOMMENDED LIMIT 4.0 - 6.0 ADA THERAPEUTIC TARGET < 7.0 ACTION SUGGESTED > 7.0 Performed By: #### A 1C #### [facility] [address] [address] [address] Rin Pride Glucose [Mass/Vol] 108 mg/dL Normal [facility] Comment on above: Performed By: #### A 1C #### [facility] [address] [place] [address] Dr. Rin Pride HbA1c (Bld) [Mass fraction] 5.4 % Normal 4.5-6.2 [facility] Comment on above: Performed By: #### A 1C #### [facility] [address] [place], [place] [address] Dr. Rin Pride MG MAMM SCREEN 3D JUDY CADon 03-08-2022 MG MAMM SCREEN 3D JUDY CAD Patient: ZAKI HUMPHREY Exam Date: 03/08/2022 : 1980 Gender:F Ordering : DR SHAY JOSEPH . Admission #: [id number] Family : Order #: [id number] CLICK HERE TO VIEW EXAM RADIOLOGY REPORT [...] lung cancer at age 23. LOCATION: [facility] BREAST COMPOSITION: Scattered areas fibroglandular density. FINDINGS: [...] MD on 03/08/2022 at 11:23 Normal [facility] PREG QUANT HCGon 03-08-2022 HCG QUANT 1 mIU/mL Normal [facility] Comment on above: Performed By: #### P REGQNT, TSH ####[facility] [address] [place], [place] [address]YuDr. Rin Pride HCG RANGE SEE BELOW Normal [facility] Comment on above: Result Comment: 5-50 0.2-1 WEEK 50-500 1-2 WEEKS 100-5,000 2-3 WEEKS 500-10,000 3-4 WEEKS 1,000-50,000 4-5 WEEKS 10,000-100,000 5-6 WEEKS 15,000-200,000 6-8 WEEKS 10,000-100,000 2-3 MONTHS Performed By: #### P REGQNT, TSH ####[facility] [address] [address]Dr. Rin Pride PROTIMEon 03-08-2022 INR Coag (PPP) [Relative time] 0.97 {INR} Normal [facility] Comment on above: Performed By: #### P TT, PT #### [facility] [address] [address] [address] Rni Pride INR GUIDELINES SEE BELOW Normal [facility] Comment on above: Result Comment: PANCHO RED INR: 2.0 - 3.0 CONDITIONS NOT LISTED BELOW 2.5 - 3.5 FOR PROSTHETIC HEART VALVE REPLACEMENT 2.5 - 3.5 RECURRENT THROMBOSIS Performed By: #### P TT, PT #### [facility] [address] [address] [address] Rin Pride PT Coag (PPP) [Time] 10.5 s Normal 9.0-11.6 [facility] Comment on above: Performed By: #### P TT, PT #### [facility] [address] [address] [address] Rin Pride PTTon 03-08-2022 aPTT Coag (Bld) [Time] 27.6 s Normal 22.3-36.2 [facility] Comment on above: Performed By: #### P TT, PT #### [facility] [address] [place] [address] Dr. Rin Pride TSHon 03-08-2022 TSH 3.358 uIU/mL Normal 0.358-3.740 [facility] Comment on above: Performed By: #### P REGQNT, TSH ####[facility] [address] [address]Dr. Rin Pride US PELVIS AND TRANSVAGon US [...] by: HOLA SUAREZ Date: 2022-03-08 17:10 Normal [facility] METABOLIC PANE [facility] 2021 Albumin [Mass/Vol] 4.4 g/dL Normal 3.6-5.1 [facility] Comment on above: Performed By: #### 7 600, 41778 #### [facility] [address] [place] [address] Plate Printer: Robinson Lange MD Albumin/Globulin [Mass ratio] 2.0 {ratio} Normal 1.0-2.5 [facility] Comment on above: Performed By: #### 7 600, 69633 #### [facility] [address] [place] [address] Plate Printer: Robinson Lange MD ALP [Catalytic activity/Vol] 57 U/L Normal 31-125 [facility] Comment on above: Performed By: #### 7 600, 78534 #### [facility] [address] [place] [address] Plate Printer: Robinson Lange MD ALT [Catalytic activity/Vol] 17 U/L Normal 6-29 [facility] Comment on above: Performed By: #### 7 600, 70666 #### [facility] of [address] [place] [address] Plate Printer: Robinson Lange MD AST [Catalytic activity/Vol] 16 U/L Normal 10-30 [facility] Comment on above: Performed By: #### 7 600, 15755 #### [facility] of [address] [place] [address] Plate Printer: Robinson Lange MD Bilirubin [Mass/Vol] 0.5 mg/dL Normal 0.2-1.2 [facility] Comment on above: Performed By: #### 7 600, 36375 #### [facility] of [address] [place] [address] Plate Printer: Robinson Lange MD BUN/CREATININE RATIO NOT APPLICABLE Normal 6-22 [facility] Comment on above: Performed By: #### 7 600, 00269 #### [facility] of [address] [place] [address] Plate Printer: Robinson Lange MD Calcium [Mass/Vol] 9.4 mg/dL Normal 8.6-10.2 [facility] Comment on above: Performed By: #### 7 600, 55332 #### [facility] of [address] [place] [address] Plate Printer: Robinson Lange MD Chloride [Moles/Vol] 105 mmol/L Normal 98-110 [facility] Comment on above: Performed By: #### 7 600, 71708 #### [facility] of [address] [place] [address] Plate Printer: Robinson Lange MD CO2 [Moles/Vol] 28 mmol/L Normal 20-32 [facility] Comment on above: Performed By: #### 7 600, 43577 #### [facility] of [address] [place] [address] Plate Printer: Robinson Lange MD Creatinine [Mass/Vol] 0.79 mg/dL Normal 0.50-1.10 [facility] Comment on above: Performed By: #### 7 600, 61167 #### [facility] of [address], [address] [place] [address] Plate Printer: Robinson Lange MD eGFR NON-AFR. SIERRA LEONEAN 94 mL/min/1.73m2 Normal > OR = 60 [facility] Comment on above: Performed By: #### 7 600, 52943 #### [facility] of [address], [address] [place] [address] Plate Printer: Robinson Lange MD GFR/1.73 sq M.predicted among blacks MDRD (S/P/Bld) [Vol rate/Area] 109 mL/min/{1.73_m2} Normal > OR = 60 [facility] Comment on above: Performed By: #### 7 600, 86572 #### [facility] of [address] [place] [address] Plate Printer: Robinson Lange MD Globulin (S) [Mass/Vol] 2.2 g/dL Normal 1.9-3.7 [facility] Comment on above: Performed By: #### 7 600, 97944 #### [facility] [address] [place] [address] Plate Printer: Robinson Lange MD Glucose [Mass/Vol] 85 mg/dL Normal 65-99 [facility] Comment on above: Result Comment: Fasting reference interval Performed By: #### 7 600, 63297 #### [facility] [address] [place] [address] Plate Printer: Robinson Lange MD Potassium [Moles/Vol] 4.3 mmol/L Normal 3.5-5.3 [facility] Comment on above: Performed By: #### 7 600, 82600 #### [facility] of [address] [place] [address] Plate Printer: Robinson Lange MD Protein [Mass/Vol] 6.6 g/dL Normal 6.1-8.1 [facility] Comment on above: Performed By: #### 7 600, 76175 #### [facility] of [place] [address], [address] [place] [address] Plate Printer: Robinson Lange MD Sodium [Moles/Vol] 140 mmol/L Normal 135-146 [facility] Comment on above: Performed By: #### 7 600, 89775 #### [facility] [address], [address] [place] [address] Plate Printer: Robinson Lange MD Urea nitrogen [Mass/Vol] 10 mg/dL Normal 7-25 [facility] Comment on above: Performed By: #### 7 600, 24075 #### [facility] [address], [address] [place] [address] Plate Printer: Robinson Lange MD LIPID PANEL, [facility] - Cholesterol [Mass/Vol] 188 mg/dL Normal <200 [facility] Comment on above: Order Comment: FASTI NG:YES FASTING: YES Performed By: #### 7 600, 62855 #### [facility] [address], [address] [place] [address] Plate Printer: Robinson Lange MD Cholesterol in HDL [Mass/Vol] 66 mg/dL Normal > OR = 50 [facility] Comment on above: Order Comment: FASTI NG:YES FASTING: YES Performed By: #### 7 600, 09532 #### [facility] [address], [address] [place] [address] Plate Printer: Robinson Lange MD Cholesterol in LDL [Mass/Vol] [...] LDL-C. Bear RAMON et al. KARTHIK. 2013;310(19): 0897-5907 (http://education.StowThat.CosmEthics/faq/FRE002) Performed By: #### 7 600, 68846 #### [facility] [address], [address] [place] [address] Plate Printer: Robinson Lange MD Cholesterol.total/Ch olesterol in HDL [Mass ratio] 2.8 {ratio} Normal <5.0 [facility] Comment on above: Order Comment: FASTI NG:YES FASTING: YES Performed By: #### 7 600, 19235 #### [facility] [address], [address] [place] [address] Plate Printer: Robinson Lange MD NON HDL CHOLESTEROL 122 mg/dL (calc) Normal <130 [facility] Comment on above: Order Comment: FASTI NG:YES FASTING: YES Result Comment: For patients with diabetes plus 1 major ASCVD risk factor, treating to a non-HDL-C goal of <100 mg/dL (LDL-C of <70 mg/dL) is considered a therapeutic option. Performed By: #### 7 600, 91710 #### [facility] [address], [address] [place] [address] Plate Printer: Robinson Lange MD Triglyceride [Mass/Vol] 67 mg/dL Normal <150 [facility] Comment on above: Order Comment: FASTI NG:YES FASTING: YES Performed By: #### 7 600, 52084 #### [facility] [address], [address] [place] [address] Plate Printer: Robinson Lange MD Encounters Encounter Date Encounter Type Care Provider Facility Start: 09-05-2023 End: 09-06-2023 ambulatory [facility] Start: 09-05-2023 Encounter for genera l adult medical examination without abnormal findings [facility] Start: 09-05-2023 End: 09-05-2023 ambulatory [facility] Start: 09-05-2023 Encounter for genera l adult medical examination without abnormal findings [facility] Start: 08-30-2023 End: 04-04-2024 ambulatory PAULA SHAW Facility:[facility] Start: 06-21-2023 End: 06-21-2023 ambulatory AMELIA PILLAI [...] for preprocedural laboratory examination DR SHAY JOSEPH [facility] Start: 04-07-2022 End: 04-08-[address] SHAY JOSEPH Facility:[facility] Start: 04-07-2022 End: 04-08-2022 Encounter for preprocedural laboratory examination DR SHAY JOSEPH Facility:[facility] Start: 03-08-2022 End: 03-09-[address] SHAY JOSEPH Facility:[facility] Start: 03-02-2022 End: 03-02-[address] SHAY JOSEPH Facility:[facility] Payers Date Payer Category Payer Unknown [id number] 1980 Unknown [id number] 2.16.84 [id number] 1980 Unknown [id number] 2.16.84 [id number] 1980 Unknown [id number] 2.16.84 0.1.863108.3.579.2.59 1980 Unknown [id number] 2.16.84 0.1.416133.3.579.2.59 1980 Unknown [id number] 2.16.84 0.1.062443.3.579.2.59 1980 Unknown [id number] 2.16.84 0.1.060399.3.579.2.9 1980 Unknown [id number] 2.16.84 0.1.210734.3.579.2.1258 1980 Unknown [id number] 2.16.840 .1.228039.3.579.2.1258 1980 Unknown [id number] 2.16.840. 1.066079.3.579.2.1258 1980 Unknown [id number] 2.16.8 40.1.393390.3.579.2.1285 1980 Unknown [id number] 2.16.8 40.1.401373.3.579.2.1285 1980 Unknown [id number] 2.16.8 [id number] 1959 Unknown [id number] Clinical Note 08-30-2023 Note Date & Type [...] home: Managing pain and congestion ? Take vlql-abq-iyafqcp and prescription medicines only as told by [...] water are not available, use alcohol-based hand facility maintenance worker. ? Cover your mouth when you cough. [...] viruses. This informati (more content not included)... [facility] Clinical Note 04-13-2022 Note Date & Type Note Facility 04-13-2022 Note OPERATIVE NOTE OPERATION DATE: 04/13/2022 PROCEDURE: Martha endometrial ablation with hysteroscopy. PREOPERATIVE DIAGNOSIS: Menorrhagia. POSTOPERATIVE DIAGNOSIS: Menorrhagia. ANESTHESIA: General. SURGEON: Shay Joseph D.O. PHOTOLITH OPERATOR: None. BLOOD LOSS: 5 mL. URINE OUTPUT: [...] taken to recovery in stable condition. [facility] Summary Purpose Family History No Family History [...] CREATED AUTHOR AUTHOR'S ORGANIZ ATION 06/15/2022 [facility] DATE CREATED AUTHOR AUTHOR'S ORGANIZ ATION 06/22/2023 [facility] EPIC DATE CREATED AUTHOR AUTHOR'S ORGANIZ ATION 09/06/2023 [facility] DATE CREATED AUTHOR AUTHOR'S ORGANIZ ATION 09/07/2023 [facility] DATE CREATED AUTHOR AUTHOR'S ORGANIZ ATION 10/04/2023 [facility] FOR RECORDS PERTAINING TO PATIENTS WHO ARE [...] BE BASED ON THE PRIMARY CLINICAL RECORDS. [facility]. provides no warranty or guarantee of the accuracy or completeness of information in this document.
[2024-05-26 09:09] LABS: Age Gdln ACOG Testing Note (.); HPV Aptima Negative (Negative); IGP, Aptima HPV, rfx 16/18,45 Note (.)
== END 2024-05-15 18:59 | disposition home or self-care (01) ==
LOC: LAB 18:58
PROVIDERS: Visit Provider Obstetrics & Gynecology
DX: Z01.419 Encounter for gynecological examination (general) (routine) without abnormal findings (principal)
CPT/HCPCS: 87624; 88175

== ENCOUNTER 2025-04-15 07:03 | Outpatient (OUT) | payer OTHER, SELFPAY ==
--- OUTSIDE RECORDS SUMMARY | 2025-04-15 07:05 | XMS_ITS | Clinical Summary ---
Author Organization [facility] Address [address], [address] [place] [address] Care Team Providers Care Managing Principal Name Role Phone Say Jiang DO Primary Care Provider Unavaila ble Allergies No known active allergies Medications MedicationSigDispense QuantityRefillsLast FilledStart DateEnd DateStatus NONFORMULARY controlActive Active Problems ProblemNoted DateDiagnosed DateSyncope and tcemogmf98/16/2015 Social History Tobacco UseTypesPacks/DayYears UsedDateSmoking Tobacco: NeverAlcohol UseStandard Drinks/WeekCommentsNo0 (1 standard drink = 0.6 oz pure alcohol)Comments NoSex and Gender InformationValueDate RecordedSex Assigned at BirthNot on file Legal MebCityzt90/10/2013 11:01 AM ESTGender IdentityNot on fileSexual OrientationNot on file Last Filed Vital Signs Vital SignReadingTime TakenCommentsBlood Hxsriynw563/5207 7:02 PM EDT Mzcvo360812/10/2014 8:00 AM EPHDecoxvmkkno78.5 ??C (97.7 ??F)12/09/2014 7:01 PM EDTRespiratory Ucyy928312/09/2014 7:01 PM EDTOxygen Nxzwxbgxcc903%12/09/2014 7:01 PM EDTInhaled Oxygen Concentration--Zeeaji13.8 kg (164 lb 14.5 oz)12/09/2014 7:01 PM KFYTosrry596 cm (5' 3 )12/09/2014 7:01 PM EDTBody Mass Index29.21 12/09/2014 7:01 PM EDT Plan of Treatment Not on file Insurance Advance Directives * Full Code (Latest Code Status on File) Date ActivatedDate InactivatedComments12/09/2014 6:21 PM12/10/2014 6:05 PM Care Teams Team MemberRelationshipSpecialtyStart DateEnd Date Say Jiang DO PCP - General12/09/14
--- OUTSIDE RECORDS SUMMARY | 2025-04-15 07:06 | XMS_ITS | CCD ---
Author Organization [facility] Care Team Providers Care Ed Special Education Teacher Name Role Phone OPAL, DR DAY Admitting Unavailable OPAL, DR DAY Attending Unavailable OPAL, DR DAY Consulting Unavailable OPAL, DR DAY Admitting Unavailable OPAL, DR DAY Attending Unavailable FURLONG, DR SCOTTY Olivier Primary Care Unavailable OPAL, DR DAY Consulting Unavailable OPAL, DR DAY Admitting Unavailable OPAL, DR DAY Attending Unavailable FURLONG, DR SCOTTY Olivier Primary Care Unavailable OPAL, DR DAY Consulting Unavailable DANGELOBRADLEYMARISELA Consulting Unavailable SHARP, TAMI Consulting Unavailable KUCHIPUDI, EMILY Consulting Unavailable OPAL, DR DAY Admitting Unavailable OPAL, DR DAY Attending Unavailable WEST, DR FORRESTER Consulting Unavailable OPAL, DR DAY Consulting Unavailable ZIEBER, DR HOLA Wolf Consulting Unavailable OPAL, DR DAY Admitting Unavailable OPAL, DR DAY Attending Unavailable FURLONG, DR SCOTTY Olivier Primary Care Unavailable OPAL, DR DAY Consulting Unavailable ZIEBER, DR HOLA Wolf Consulting Unavailable Bettyng Scotty BLANKENSHIP Primary Care Provider AMELIA PILLAI Attending Unavailable AMELIA PILLAI Attending Unavailable CHENG JOSEPH Attending Unavailable Erwin Boyle MD Attending Provider Scotty Eagle DO Primary Care Provider [phone] Scotty Eagle DO Primary Care Provider [phone] SCOTTY EAGLE Attending Unavailable SCOTTY EAGLE Referring Unavailable SCOTTY EAGLE Primary Care Unavailable SCOTTY EAGLE Referring Unavailable SCOTTY EAGLE Primary Care Unavailable Scotty Eagle MD Primary Care Provider [phone] Devorah Rosales APRN Attending Provider NON STAFF Primary Care Provider Unavailabl e Erwin Boyle Attending Unavailable Erwin Boyle Admitting Unavailable Devorah Rosales Admitting Unavail able Devorah Rosales Attending Unavail able Lashanda Otoole Attending Unavailable Lashanda Otoole Primary Care Unavailable Lashanda Otoole Attending Unavailable Lashanda Otoole Primary Care Unavailable Erwin Boyle Attending Unavailable SCOTTY EAGLE Primary Care Unavailable Erwin Boyle Attending Unavailable SCOTTY EAGLE Primary Care Unavailable SCOTTY EAGLE Primary Care Unavailable Sergey Ayers Attending Unavailable Medications Current Medications MedicationDrug Class(es)DatesSig (Normalized)Sig (Original)cetirizine hydrochloride 10 mg oral tablet (1 source)Histamine-1 Receptor AntagonistStart: 90-59-4314ydyv 1 tablet by mouth once daily as neededcetirizine (ZyrTEC) 10 mg tablet Take 1 tablet (10 mg total) by mouth nightly as needed for allergies. 09/08/2024 ActiveStart: 72-25-6422hcza 1 tablet by mouth once daily as neededcetirizine (ZyrTEC) 10 mg tablet Take 1 tablet (10 mg total) by mouth nightly as needed for allergies. 09/08/2024 Active glycopyrronium 24 mg/ml medicated pad (3 sources)Start: 09-05-2023 End: 63-72-6209sjzrvlzmtajsim tosylate 2.4 % towelette Indications: Hyperhidrosis Apply 1 Unit topically in the morning. 90 each 3 09/05/2023 09/08/2024 Discontinued (Therapy completed)multivitamin tablet (3 sources)Start: 00-36-6029zvjt 1 tablet by mouth in the morningmultivitamin tablet Take 1 tablet by mouth in the morning. 09/05/2023 ActiveMultivitamin tablet (2 sources)Start: 07-09-5450sbho 1 tablet by mouth once dailyStart: 03-24-2025 take 1 tablet by mouth once dailyMultivitamin tablet Active 1 TAB PO Daily March 24, 2025 12:00am Complies with drug therapysulfamethoxazole 800 mg / trimethoprim 160 mg oral tablet (2 sources)Dihydrofolate Reductase Inhibitor Antibacterial, Sulfonamide AntimicrobialStart: 87-06-7546chkw 1 tablet by mouth every twelve hours valACYclovir 500 mg oral tablet (9 sources)Herpesvirus Nucleoside Analog DNA Polymerase Inhibitor, Herpes Simplex Virus Nucleoside Analog DNA Polymerase Inhibitor, Herpes Zoster Virus Nucleoside Analog DNA Polymerase InhibitorStart: 75-05-7649rnqz 1 tablet by mouth once dailyStart: 11-20-2023 End: 39-10-9032sibm 1 tablet by mouth once dailyvalACYclovir (Valtrex) 500 MG tablet Indications: Genital herpes simplex, unspecified site Take 1 tablet (500 mg) by mouth Daily 90 tablet 2 11/20/2023 08/16/2024 Active Problems Active Problems Problem ClassificationProblemDateDocumented DateEpisodic/ChronicContraceptive and procreative management (1 source)Tubal ligation status; Translations: [TUBAL LIGATION STATUS]Onset: 73-99-1426DivcdxcfCgjvtcgboherp symptoms and ill-defined conditions (1 source)Dysuria; Translations: [Dysuria]Onset: 72-53-1952UbzzsqejRdadikzcu disorders (5 sources)Excessive and frequent menstruation with regular cycle; Translations: [Dysmenorrhea, unspecified]Onset: 14-70-2839TztzxwlKlfzryh (1 source)Candidiasis, unspecified; Translations: [CANDIDIASIS UNSPECIFIED] Onset: 71-36-5578EgkidxgpLkhhv nutritional; endocrine; and metabolic disorders (5 sources)Body mass index 25-29 - overweight; Translations: [Overweight]Onset: 472230-15-7837XnaazzhnSuvsz nutritional; endocrine; and metabolic disorders (1 source)Overweight; Translations: [Overweight]39-74-8331GkbixuvpWofxs screening for suspected conditions (not mental disorders or infectious disease) (7 sources)Encounter for screening mammogram for malignant neoplasm of breast; Translations: [Encounter for screening for malignant neoplasm of cervix]Onset: 67-54-0959ZfgbtnbwPitiwlg cyst (5 sources)Other ovarian cyst, unspecified side; Translations: [Unspecified ovarian cyst, left side]Onset: 68-05-3373XinhikfeDbedhmckhnpn (1 source)CONTACT W/AND (SUSP) EXPOS COVID-19; Translations: [CONTACT W/AND (SUSP) EXPOS COVID-19]Onset: 61-56-5387Stcmqptldlil (1 source)Annual ExamOnset: 05-98-7462Xhgbrmo tract infections (2 sources)Urinary tract infectious disease; Translations: [Urinary tract infection, site not specified]80-26-9283BjihlfakSyxtg infection (2 sources)Herpesvirus infection; Translations: [Herpesviral infection of urogenital system, unspecified]23-13-4284Tfywsdo Past or Other Problems Problem ClassificationProblemDateDocumented DateEpisodic/ChronicBiliary tract disease (1 source)Calculus of gallbladder with chronic cholecystitis without obstruction; Translations: [Calculus of gallbladder with chronic cholecystitis without obstruction]Onset: 41-60-9229MrhcfanmMzdeunotavlby and screening for infectious disease (1 source)Encounter for screening for human papillomavirus (HPV); Translations: [ENC SCREENING HUMAN PAPILLOMAVIRUS]Onset: 47-48-1813KmbyyeicSoxd disorders (3 sources)Mood disordersOnset: 09-05-2023 Resolved: Other nutritional; endocrine; and metabolic disorders (1 source)Overweight; Translations: [Overweight]Onset: 55-87-6746QwpczyalAlxjt skin disorders (4 sources)Hyperhidrosis; Translations: [Generalized hyperhidrosis]Onset: 432115-75-4512ZrvnxqdtAamkacrw (3 sources)Delivery finding; Translations: [Maternal care for unspecified type scar from previous delivery]Onset: 679001-75-3428AlspifghBxfusepj codes; unclassified (1 source)Family history of malignant neoplasm of trachea, bronchus and lung; Translations: [FAM HX MALIG NEOPLSM TRACH BRON LNG]Onset: 63-33-5823Tikwlhfi Residual codes; unclassified (1 source)Family history of malignant neoplasm of other organs or systems; Translations: [FAM HX MALIG NEOPLASM OTH ORGN/SYS]Onset: 60-47-1040Ytdfojhl Syncope (3 sources)Syncope and collapse; Translations: [Syncope and collapse]Onset: 224609-72-7643DgecbkwvVvavcqlsgwtl (1 source)Onset: 790521-99-7306Yjmtr infection (4 sources)Herpes simplex; Translations: [Herpesviral infection, unspecified] Onset: 340177-53-9720Rwfekddy Results Test NameValueInterpretationReference RangeFacilityLaboratory - Chemistry and Chemistry - challengeOrdered By: Devorah Rosales on 73-32-7363Zszruvhiz Ql (U)[facility] Health SystemGlucose (U) [Mass/Vol]NegativeProtestant Deaconess HospitalKetones Ql (U)NegativeProtestant Deaconess Hospital pH (U)6.5 [pH][facility] Health Systempecific gravity (U) [Rel density]>=1.030Pro[facility]ant Deaconess HospitalLaboratory - Specimen informationOrdered By: Devorah Rosales on 25-95-8381Mdbusjxlzg (U)turbid [facility]aconess HospitalColor (U)red-brownProtestant Deaconess HospitalLaboratory - UrinalysisOrdered By: Devorah Rosales on 03-24-2025 Leukocyte esterase Test strip Ql (U)largeProtestant Deaconess Hospital Nitrite Ql (U)PositiveProtestant Deaconess HospitalProtein Ql (U)>=300mg/dL [facility] HospitalNo Panel InformationOrdered By: Devorah Rosales on 91-49-5029Bsqxt Occult BloodlargeProtestant Deaconess Hospital Urine Urobilinogen1.0EU/dLProtestant Deaconess HospitalUrine Cultureon 91-54-6883Geaztvyg identified Cx Nom (U)ORGANISM: Escherichia coli (O:ESCCOL) [employer] Count >100,000 Aerobic CRISTOFER Charge (NMIC56) SUSCEPTIBILITY ORGANISM: O:ESCCOL ANTIBIOTIC INTERPRETATION CRISTOFER Amikacin S <16 Amoxacillin/K Clavulanate S <8 Ampicillin S <8 Ampicillin/Sulbactam S <4 Aztreonam S <4 Cefazolin S <2 Cefepime S <2 Ceftazidime S <1 Ceftazidime/Avibactam S <4 Ceftolozane/Tazobactam S <2 Ceftriaxone S <1 Cefuroxime S <4 Ciprofloxacin S <0.25 Ertapenem S <0.5 Gentamicin S <2 Levofloxacin S <0.5 Meropenem S <1 Meropenem/Vaborbactam S <2 Nitrofurantoin S <32 Piperacillin/Tazobactam S <8 Tetracycline S <4 Tigecycline S <2 Tobramycin S <2 Trimethoprim/Sulfamethoxazole S <0.5 S = SUSCEPTIBLE I = INTERMEDIATE R = RESISTANT BLANK = DATA NOT AVAILABLE, OR DRUG NOT ADVISABLE OR TESTED R* = RESISTANCE DUE TO EXTENDED SPECTRUM BETA-LACTAMASES ESBL = EXTENDED SPECTRUM BETA-LACTAMASE TFG = THYMIDINE-DEPENDENT STRAIN JIM = BETA-LACTAMASE POSITIVE IB = INDUCIBLE BETA-LACTAMASE. APPEARS IN PLACE OF 'S' WITH SPECIES KNOWN TO POSSESS INDUCIBLE BETA-LACTAMASES. POTENTIALLY THEY MAY BECOME RESISTANT TO ALL B-LACTAM DRUGS. PERFORMED BY: [place] [address] PATHOLOGIST [employer] CONSULTANT GUALBERTO DELGADILLO M.D.NormalDelray Medical Center Physician GroupComment on above: Performed By: #### CUU #### [place] [address] USAOutside Recordson 27-36-8331Bpsazrq RecordsAbby has been excepted by Dr. Otoole as a new patient. She is aware and will be stopping by for PW. [Electronically Signed on: 02/26/2025 15:24 EDT] Johanne Leblanc [Verified on: 02/26/2025 15:24 EDT] Johanne Leblanc [facility] HospitalCOMPREHENSIVE METABOLIC PANELon 06-68-6207Omscpey [Mass/Vol]4.6 g/dLNormal3.2-5.3PSelect Medical Specialty [facility] Comment on above:Performed By: #### FLO, 56742-6 #### [facility] ([id number]) [address], [address] [place], [place] [address]CKD [Catalytic activity/Vol]44 U/YQdpiup63-395AaiCswuna Jackson HospitalComment on above:Performed By: #### FLO, 19036-1 #### [facility] ([id number]) [address], [address] [place], [place] [address]AZJ [Catalytic activity/Vol]21 U/LNormal0-31ProMedMarion Hospital HospitalComment on above:Performed By: #### FLO, 46065-2 #### [facility] ([id number]) [address], [address] [place], [place] [address]Koxma gap [Moles/Vol]7 mmol/LNormal5-15ProProvidence Hospital Hospital Comment on above:Performed By: #### FLO, 51496-7 #### [facility] ([id number]) [address], [address] [place], [place] [address]FRG [Catalytic activity/Vol]18 U/LNormal0-41ProProvidence Hospital HospitalComment on above:Performed By: #### FLO, 18327-3 #### [facility] ([id number]) [address], [address] [place], [place] [address]Jxhnhiffr [Mass/Vol]0.5 mg/dLNormal0.3-1.2ProMedMarion Hospital HospitalComment on above:Performed By: #### FLO, 62491-4 #### [facility] ([id number]) [address], [address] [place], [place] [address]Eiukhaf [Mass/Vol]9.8 mg/dLNormal8.5-10.5PMain Campus Medical Center HospitalComment on above:Performed By: #### FLO, 40538-9 #### [facility] ([id number]) [address], [address] [place], [place] [address]Xgpwcvkf [Moles/Vol]105 mmol/ITpglzp18-874HyfSdzmzn [place] HospitalComment on above:Performed By: #### FLO, 87885-2 #### [facility] ([id number]) [address], [address] [place], [place] [address]VC8 [Moles/Vol]29 mmol/RRpwwql08-07IfuTsmjbcSelect Medical Specialty [facility] Comment on above:Performed By: #### FLO, 85923-7 #### [facility] ([id number]) [address], [address] [place], [place] [address]Vnkkprcqsw [Mass/Vol]0.85 mg/dLNormal0.40-1.00ProVeterans Health AdministrationComment on above:Result Comment: METHOD TRACEABLE TO IDMS STANDARD Performed By: #### FLO, 51581-1 #### [facility] ([id number]) [address], [address] [place], [place] [address]LGA/1.73 sq M.predicted among non-blacks MDRD (S/P/Bld) [Vol rate/Area]87 mL/min/{1.73_m2}Normal>59ProVeterans Health AdministrationComment on above: Result Comment: Reported eGFR is based on the CKD-EPI 2020 equation that does not use a race coefficient.Performed By: #### FLO, 31802-5 #### [facility] ([id number]) [address], [address] [place], [place] [address]Axbzsik [Mass/Vol]91 mg/xTByhupn87-91VwaFpdapoChildren's Hospital of Columbus Comment on above:Performed By: #### FLO, 05386-8 #### [facility] ([id number]) [address], [address] [place], [place] [address]Gehamfknz [Moles/Vol]4.2 mmol/LNormal3.5-5.0ProVeterans Health AdministrationComment on above:Performed By: #### FLO, 50690-7 #### [facility] ([id number]) [address], [address] [place] [address]Oeduiga [Mass/Vol]7.2 g/dLNormal6.0-8.0[facility] Comment on above:Performed By: #### FLO, 16898-5 #### [facility] ([id number]) [address], [address] [place], [place] [address]Ffqwqm [Moles/Vol]141 mmol/OAenysl221-199QphKktatt [place] HospitalComment on above:Performed By: #### FLO, 84148-1 #### [facility] ([id number]) [address], [address] [place], [place] [address]Rvnc nitrogen [Mass/Vol]14 mg/dLNormal5-23ProVeterans Health AdministrationComment on above:Performed By: #### FLO, 01305-2 #### [facility] ([id number]) [address], [address] [place], [place] [address]Bidjx 1996 panelon 29-75-9493Cqsugmdaeki [Mass/Vol]184 mg/dL Misfif059-371QwwHhrsin [place] HospitalComment on above:Performed By: #### FLO, 40344-1 #### [facility] ([id number]) [address], [facility] [address] [place], [place] [address]Wttrsmjdekk in HDL [Mass/Vol]62 mg/dLNormal>39ProVeterans Health AdministrationComment on above:Result Comment: HDL <40 mg/dL - High Risk HDL > or = 40mg/dL- Desirable HDL >60 mg/dL - Negative Risk Performed By: #### FLO, 35578-3 #### [facility] ([id number]) [address], [address] [place], [place] [address]Kdkozwcsvyk in LDL [Mass/Vol]106 mg/dLNormal<130ProProvidence Hospital HospitalComment on above:Result Comment: LDL <100 mg/dL - Desirable LDL >160 mg/dL - High Risk Performed By: #### FLO, 39383-6 #### [facility] ([id number]) [address], [facility] [address] [place], [place] [address]Vnucizkkgkc in VLDL [Mass/Vol]16 mg/dLNormal0-30ProProvidence Hospital HospitalComment on above:Performed By: #### FLO, 60559-0 #### [facility] ([id number]) [address], [facility] [address] [place], [place] [address]JPFGQKJCTEY:HDL3.9Iydhaz7.0-5.0ProProvidence Hospital HospitalComment on above:Performed By: #### FLO, 76300-7 #### [facility] ([id number]) [address] [address]Tzedeniopbpy [Mass/Vol]80 mg/xOMprlio45-254ZdtOuysuy [place] HospitalComment on above:Performed By: #### FLO, 80709-4 #### [facility] ([id number]) [address] [address] [place] [address]Fbztnkpga Sendout Teston 47-07-8688Xqnyalwpc Send Out.See Report [facility] HospitalComment on above:Order Comment: gallbladder, lap renetta Performed By: #### [id number] #### [facility] (DEFAULT) [address] [place], [place] [address]Yrexhp Summaryon 75-75-6010Laoeio SummarySALT LAKE BEHAVIORAL HEALTH HOSPITALBase 64 GcwbxzdqXWe1zZn+PGhlYWQ+WG5IVXWxU66bbNJzoZ8wV7AYEXtLFhzgSERUNTmHCkOxwrQyDU9odTKb ZXJu [file] J2J (more content not included)...[facility] SystemPatient Handouton 35-30-4516Urbphvh HandoutCustom [facility] [address], [address], [place] Date: 06/09/2024 RE: Zaki Kam To whom it may concern, Zaki has been under my professional care due to a surgical procedure performed on 05/29/2024. Please excuse her from work from 05/29/2024-06/11/2024. She may return to work with no restrictions on 06/12/2024. Thank you, Erwin Boyle M.D.[facility] SystemLab - AP Resultson 17-28-0815Wwx - AP [id number]#1.00OTGTAdena Health SystemPathology study report documentOrdered By: Marie Bunn on 98-27-7087Bflgganji studyProtestant Deaconess Hospital Other Consent Formson 69-29-0523Dziohrv Forms [id number]#1.00OTGTAdena Health SystemMAGR Postoperative Recordon 83-11-9984EAOX Postoperative RecordMAGR Phase II Record Summary Primary Physician: Erwin Boyle MD Finalized Date/Time: 05/30/24 07:56:13 Pt. Name: RODGER HUMPHREYY XAVI Hansen/Sex: 1980 FEMALE Med Rec #: [id number] Physician: Erwin Boyle MD Financial #: [id number] Pt. Type: O Room/Bed: [facility] Admit/Disch: 05/29/24 01:56:39 - 05/29/24 16:25:00 Institution: Phase II Case Times MAGR Pre-Care Text: Patient is free from s/s of injury. Patient remains free from compromised physical state related tosurgery or anesthesia. Patient comfort maintained. Patient/family verbalize understanding of discharge instructions. Entry 1 In PACU II 05/29/24 10:43:00 Discharge from PACU 05/29/24 12:00:00 II Last Modified By: Jacqueline Pompa RN 05/30/24 07:56:11 Post-Care Text: The patient remains free from s/s of injury. Patient's vital signs stable, circulation maintained, return to preop mental and physical status, opsite/dressing intact, minimal or absent nausea and vomiting, tolerates po intake. Patient verbalizes adequate pain control. Patient/family express understanding of discharge instructions. Finalized By: Jacqueline Pompa RN Document Signatures Signed By: Jacqueline Pompa RN 05/30/24 07:56NormMercy Health Fairfield HospitalTelemetry Stripson 81-44-5037Ukqofrhbr [id number]#1.00OTGTIFF [facility].Auto Diff 1on 04-57-6864Uhon [place] %7 %Normal1-12[facility] County Health CenterComment on above:Performed By: #### [id number], 69428608, 7605912, [id number], [id number], [id number], [id number] ####[facility] (DEFAULT)[address] [place] [address]Xdeg Abs#0.0 m90Nzxded1.0-0.2Mtrinity health system [facility] HospitalComment on above:Performed By: #### [id number], 06904117, 1369440, [id number], [id number], [id number], 9321454 ####[facility] (DEFAULT)[address] [place], [place] [address]Iptzuhstf/100 WBC (Bld)0.4 %Normal0.2-2.0 [facility] County Health CenterComment on above:Performed By: #### [id number], 56377994, 7261179, [id number], [id number], , [id number] ####[facility] (DEFAULT)[address] [place] [address]Kbh Abs#0.1 o45Qafwwp7.0-0.4 [facility] HospitalComment on above:Performed By: #### [id number], 74725061, 2496832, [id number], [id number], , [id number] ####[facility] (DEFAULT)[address] [place] [address]Cgsvnahmewe/100 WBC (Bld)0.9 % Normal0.9-4.0[facility] HospitalComment on above:Performed By: #### [id number], 83690543, 4302384, [id number], [id number], [id number], 0046604 ####[facility] (DEFAULT)[address] [place] [address]Wktbv Abs#2.5 b75Nfepvl 1.3-2.9[facility] HospitalComment on above:Performed By: #### [id number], 64492327, 8876533, 8105789870, 8576929458, 0634051809, 9403506 ####[facility] (DEFAULT)[address] [place] [address]Zedmdyioxqk/100 WBC (Bld)25 %Uwmkgm63-10Abphgdzq HospitalComment on above:Performed By: #### [id number], 95238826, 6843441, [id number], 7277504879, , 4603344 ####[facility] (DEFAULT)[address] [place] [address]Wzph Abs# 0.7 h40Peusyn9.0-0.8[facility] HospitalComment on above:Performed By: #### [id number], 98499745, 8131103, 5231219806, [id number], [id number], 4077317 ####[facility] (DEFAULT)[address] [place] [address]Xpyg Abs# 6.6 h54Dbxzlf7.5-9.2MMercer County Community HospitalComment on above:Performed By: #### [id number], 34783118, 2224487, 1148227409, [id number], [id number], 1996099 ####[facility] (DEFAULT)[address] [place] [address] Neutrophils/100 WBC (Bld)67 %Sdkuoc13-[address] [place], [place] [address]Comment on above: Performed By: #### [id number], 66957997, 6074276, 5525935662, 7935572688, 6782288287, 0879762 ####[facility] (DEFAULT)[address] [place], [place] [address]Mdwevzaqj Noteon 78-37-8922Owhwwozyx NotePatient arrived at 0500 via stretcher, but was able to walk from hallway to bed. Patient oriented to room, VS taken, patient used restroom and was able to provide a sample of urine for lab testing. Patient remains NPO. Lemon swabs provided. Patient left in comfortable position with no further needs. NS running at 125, IV left forearm. [Electronically Signed on: 05/29/2024 05:43 EST] Beverly Ogden RN [Verified on: 05/29/2024 05:43 EST] Beverly Ogden RNNoCleveland Clinic Hillcrest HospitalAnesthesia Noteon 18-71-2846Rlynuxktlo NotePatient: ZAKI HUMPHREY Age: 44 years Sex: FEMALE : 1980 Associated Diagnoses: None Author: Say Brooks MD Postoperative Information Post Operative Note Health Status Allergies: Allergic Reactions (All) No known allergies Problem list (past medical history): All Problems Genital herpes / SNOMED CT 24363938 / Confirmed Physical Examination VS/Measurements Vital Signs (last 24 hrs) Last Charted Temp Oral 36.7 DegC (MAY 29 12:00) Heart Rate Monitored 60 bpm (MAY 29 12:00) Resp Rate 18 br/min (MAY 29 12:00) SBP 118 mmHg (MAY 29 12:00) DBP 70 mmHg (MAY 29 12:00) Weight 76.4 kg (MAY 29 08:11) BMI 27.46 (MAY 29 02:09) Assessment Anesthetic outcome No anesthetic complications noted. Plan Transfer/ Discharge: To home, Patient can be discharged from PACU when criteria met. Condition good. pt did well. pain well controlled. no n/v. hd stable. resp and neuro status at baseline. volume status adequate [Electronically Signed on: 05/29/2024 13:44 EST] Say Brooks MD [Verified on: 05/29/2024 13:44 EST] Say Brooks MDBlanchard Valley Health SystemAnesthesi NotePatient: ZAKI HUMPHREY Age: 44 years Sex: FEMALE : 1980 Associated Diagnoses: None Author: Say Brooks MD Preoperative Information Anesthesia history: Patient history: No difficult intubation, No malignant hyperthermia. Family history: No malignant hyperthermia. Review of Systems Constitutional: Negative. Respiratory: Negative, No shortness of breath. Cardiovascular: Negative, No chest pain. Gastrointestinal: No heartburn. Health Status Allergies: Allergic Reactions (All) No known allergies Current medications: No qualifying data available Problem list (past medical history): All Problems Genital herpes / SNOMED CT 87350640 / Confirmed Histories Family History: No family history items have been selected or recorded. Procedure history: No active procedure history items have been selected or recorded. Social History Electronic Cigarette/Vaping Assessment Electronic Cigarette Use: Never. Alcohol Assessment Use: Never. Tobacco Assessment Never tobacco user Tobacco Use:. Substance Abuse Assessment Substance use: Never. Comment: Jami . Social & Psychosocial Habits Alcohol 05/29/2024 Alcohol Use: Never Substance Use 05/29/2024 Substance use: Never Comment: Jami - 2019 11:07 - Qing HINKLE, Sonia Tobacco 05/29/2024 Smoking tobacco use: Never tobacco user Electronic Cigarette/Vaping 05/29/2024 Electronic Cigarette Use: Never . Physical Examination VS/Measurements Measurements from flowsheet : Measurements 05/29/2024 5:09 EST Height 160.02 cm Weight 76.4 kg Body Mass Index 29.84 kg/m2 05/29/2024 2:09 EST Height 160.02 cm Weight 70.31 kg Weight Dosing 70.310 kg Body Mass Index Measured 27.46 kg/m2 , Vital Signs (last 24 hrs) Last Charted Temp Oral 36.6 DegC (MAY 29 05:09) Heart Rate Peripheral L 48 bpm (MAY 29:) Resp Rate 16 br/min (MAY 29 05:) SBP H 124 mmHg (MAY 29:) DBP 62 mmHg (MAY 29 05:) Weight 76.4 kg (MAY 29:) BMI 27.46 (MAY 29) Review / Management Laboratory Results Plan [employer]#(ASA) physical status classification: Class I. Anesthetic Preoperative Plan Anesthesia: General. . Anesthetic plan, risks, benefits, and alternatives discussed with the patient and/or family. Patient verbalized understanding. [Electronically Signed on: 05/29/2024 08:01 EST] Say Brooks MD [Verified on: 05/29/2024 08:01 EST] Say Brooks MDPro[facility] w/ Auto Diffon 24-64-1371Rxwlviwfebu distribution width (RBC) [Ratio]12.9 %Twydwq33.5-15.0[facility] HospitalComment on above:Performed By: #### [id number], 05603296, 4883900, 9393822069, 2471249685, 6212835396, 6788382 ####[facility] (DEFAULT)[address] [place], [place] [address]Hematocrit (Bld) [Volume fraction]42.4 %High33.7-40.4[facility] HospitalComment on above:Performed By: #### [id number], 28077276, 7236003, 4592795357, 3134461702, 7339229247, 4725718 ####[facility] (DEFAULT)[address] [place], [place] [address]Hemoglobin (Bld) [Mass/Vol]14.5 g/dLNormal 11.3-15.9[facility] HospitalComment on above:Performed By: #### [id number], 78548845, 7383871, 6490802314, 1084248257, 3616337723, 4953318 ####[facility] (DEFAULT)[address] [place] [address] 46540Qnr Diff?AutoInvalid Interpretation CodeTrumbull Memorial Hospital HospitalComment on above:Performed By: #### [id number], 09902895, 3385320, 7438989807, 7946050415, 4544239960, 5776921 ####[facility] (DEFAULT)[address] [place] [address] 85224NNM (RBC) [Entitic mass]33 xbJgqvvr63-61Mluqokyl HospitalComment on above:Performed By: #### [id number], 31401452, 7396588, 7880110806, 4759579334, 6424196279, 1661292 ####[facility] (DEFAULT)[address] [place] [address] 10338DRLX (RBC) [Mass/Vol]34 g/sQEhivtt75-33Cpdewfus HospitalComment on above:Performed By: #### [id number], 38767358, 6957206, 1220415434, 1655928584, 6244649913, 0531804 ####[facility] (DEFAULT)[address] [place] [address] 01928HRZ (RBC) [Entitic vol]97 rPStssmk50-374Wbowgkrp HospitalComment on above:Performed By: #### [id number], 47346593, 7531273, 3173632293, 6335385139, 4638399096, 5654936 ####[facility] (DEFAULT)[address] [place] [address] 38139Uwjuazvl 248 g44Vyuyfq176-446Gzkccvwn HospitalComment on above:Performed By: #### [id number], 93755464, 0138546, 1202922491, 2808025139, 1710938441, 4438685 ####[facility] (DEFAULT)[address] [place] [address] 90664Widgtrwc mean volume (Bld) [Entitic vol]9.2 fLNormal6.3-10.2[facility] HospitalComment on above:Performed By: #### [id number], 79179915, 3952809, 6426183706, 1352112413, 2966999497, 3748818 ####[facility] (DEFAULT)[address] [place] [address] 50528VCF3.36 w60Rdetjk7.70-5.30[facility] HospitalComment on above: Performed By: #### [id number], 19677788, 4517955, 7945315497, 1582450695, 2509905358, 6471089 ####[facility] (DEFAULT)[address] [place] [address] 98879HQK3.9 b90Obemex2.5-10.5[facility] HospitalComment on above: Performed By: #### [id number], 39703635, 4334096, 0435105209, 9909171087, 8753680356, 3096393 ####[facility] (DEFAULT)[address] [place] [address] 89577CEM Standardon 43-09-2387sCCE Non AA>60Invalid Interpretation [facility] HospitalComment on above:Performed By: #### [id number], 28878714, 1386249, 9844656656, 3312371779, 3185003290, 1429166 ####[facility] (DEFAULT)[address] [place] [address] 82140eDPD AA>60Invalid Interpretation CodeTrumbull Memorial Hospital HospitalComment on above:Performed By: #### [id number], 49504135, 7372429, 4696673298, 9152011091, 9647676746, 8173262 ####[facility] (DEFAULT)[address] [place] [address] 58526Zjtwoib [Mass/Vol]4.1 g/dLNormal 3.5-5.0[facility] HospitalComment on above:Performed By: #### [id number], 11099832, 4672693, 3112947904, 6912255483, 5940079838, 5434791 ####[facility] (DEFAULT)[address] [place] [address] 90887Jvauhjx/Globulin [Mass ratio]1.3 {ratio}Low1.4-2.6[facility] HospitalComment on above:Performed By: #### [id number], 49947522, 3252962, 9698138795, 6690076227, 7212149200, 1245654 ####[facility] (DEFAULT)[address] [place] [address] 19930Yeu Phos45 IU/JHfdftv73-31Vepgqegd HospitalComment on above:Performed By: #### [id number], 29807711, 8525627, 8081661296, 0654513294, 9460789099, 4002562 ####[facility] (DEFAULT)[address] [place] [address] 51800EVJ [Catalytic activity/Vol]24.0 U/GHtbque52.0-54.0[facility] HospitalComment on above:Performed By: #### [id number], 80165694, 2894762, 5952034911, 9882489801, 3654936816, 6271599 ####[facility] (DEFAULT)[address] [place] [address] 66717 Anion gap [Moles/Vol]12.7 mmol/LNormal5.0-19.0[facility] CenterComment on above: Performed By: #### [id number], 18031548, 6297727, 2116673952, 9684087035, 1344343105, 8253532 ####[facility] (DEFAULT)[address] [place] [address] 06524WVM [Catalytic activity/Vol]19 U/AKaciha33-55Yzmrmeke Hospital Comment on above:Performed By: #### [id number], 06322086, 0522852, 1029485482, 7521564530, 0392552848, 5009955 ####[facility] (DEFAULT)[address] [place] [address] 03937Pueo Total0.7 mg/dLNormal0.3-1.2MMercer County Community Hospital Comment on above:Performed By: #### 6896326452, 44545895, 4368800, 2132331362, 8792833625, 5988747650, 8800086 ####[facility] (DEFAULT)[address] [place] [address] 52139Ehxsmpf [Mass/Vol]9.4 mg/dLNormal8.9-10.3MMercer County Community HospitalComment on above:Performed By: #### [id number], 66500727, 8954830, 5888230132, 4586577042, 9955884066, 5244717 ####[facility] (DEFAULT)[address] [place] [address] 41574Qrinjiga [Moles/Vol]100 mmol/UTte320-156 [facility] CenterComment on above:Performed By: #### 2815497932, 92146750, 9990594, 2851784791, 8884885796, 6933109029, 1999957 ####[facility] (DEFAULT)[address] [place] [address] 05801DR1 [Moles/Vol]27 mmol/LNormal 21-32[facility] HospitalComment on above:Performed By: #### 9335811141, 26039035, 2744193, 8672906640, 3369034029, 2305729229, 3665406 ####[facility] (DEFAULT)[address] [place] [address] 10305Pktosekzod [Mass/Vol]0.89 mg/dL Normal0.60-1.30[facility] CenterComment on above:Performed By: #### [id number], 47419242, 1982843, 0544038906, 2272482736, 0580445722, 5578216 ####[facility] (DEFAULT)[address] [place] [address] 79643Ecdpmdde (S) [Mass/Vol] 3.1 g/dLNormal1.5-4.3[facility] HospitalComment on above:Performed By: #### [id number], 54920711, 6545569, 0494488152, 1471172976, 8895438254, 8374613 ####[facility] (DEFAULT)[address] [place] [address] 40899Pljdqmi [Mass/Vol]106.0 mg/fFHyzdcp41.0-118.0[facility] CenterComment on above:Performed By: #### 2058471062, 67154875, 6466128, 3000397937, 3202657867, 8496217432, 6048177 ####[facility] (DEFAULT)[address] [place] [address] 40188 Stmevfigbw571 mOsm/LInvalid Interpretation CodeFulton County Health CenterComment on above:Performed By: #### [id number], 71253796, 2230518, 4337855271, 0291818230, 4252590727, 3037571 ####[facility] (DEFAULT)[address] [place] [address] 95374Ywvtncevp [Moles/Vol]3.7 mmol/LNormal3.6-5.1MMercer [facility] Hospital Comment on above:Performed By: #### [id number], 67341335, 3727235, 4654114059, 0707032705, 0196105660, 4892715 ####[facility] (DEFAULT)[address] [place] [address] 03906Ixjrbdb [Mass/Vol]7.2 g/dLNormal6.5-8.1[facility] HospitalComment on above:Performed By: #### [id number], 45206418, 6227006, 5019018827, 3180399147, 1549713568, 5228293 ####[facility] (DEFAULT)[address] [place] [address] 39083Avyjnp [Moles/Vol]136.0 mmol/LNormal 136.0-144.0[facility] HospitalComment on above:Performed By: #### [id number], 74792108, 1715564, 5020858539, 6215806232, 8023073562, 7646958 ####[facility] (DEFAULT)[address] [place] [address] 01264Pvrx nitrogen [Mass/Vol]14 mg/dLNormal8-26[facility] HospitalComment on above:Performed By: #### [id number], 83580701, 0267862, 7580530209, 7973120757, 6388421065, 7906352 ####[facility] (DEFAULT)[address] [place] [address] 78937Wlrm nitrogen/Creatinine [Mass ratio]15.7 mg/mgNormal4.6-16.2[facility] HospitalComment on above:Performed By: #### [id number], 48448137, 2789334, 6797207877, 3568999960, 8581758355, 6341636 ####[facility] (DEFAULT)[address] [place] [address] 04418MF Abdomen/Pelvis w/o Contraston 09-52-1324QJ Abdomen/Pelvis w/o ContrastEXAMINATION: CT Abdomen/Pelvis w/o Contrast, 05/29/2024 12:45 AM MST HISTORY: upper abd discomfort COMPARISON: None. TECHNIQUE: CT scan of the abdomen and pelvis was performed without IV contrast. CT dose reduction technique was used, including Automated Exposure Control. FINDINGS: The visualized portions of the lung bases are clear. Abdomen: Please note that the sensitivity for detection of focal lesions or vascular disease is markedly reduced without intravenous contrast. The liver and spleen are unremarkable. There is no intra or extrahepatic biliary duct dilatation. There is cholelithiasis with borderline gallbladder distention. There is colonic diverticulosis without evidence of acute inflammation. Otherwise, the pancreas, adrenal glands, kidneys, and bowel loops, including the appendix, are unremarkable. There is no mesenteric or retroperitoneal lymphadenopathy. There is a small fat-containing umbilical hernia. Pelvis: The bladder and rectum are unremarkable. There is no iliac or inguinal lymphadenopathy. The uterus is not seen. The ovaries appear within normal limits by CT. Bone windows show no aggressive osseous lesions. IMPRESSION: 1. Cholelithiasis with borderline gallbladder distention. This will be better evaluated on the ordered right upper quadrant ultrasound examination. 2. Colonic diverticulosis without evidence of diverticulitis. 3. Normal appendix. 4. Status post suspected hysterectomy. Final Dictated by: Dick Roche MD Dictated DT/TM: 05/29/24 4:35 Signed (Electronic Signature): Dick Roche MD 05/29/24 4:40 am Technologist: [facility] Clinical Summaryon [id number] Clinical [facility] - Emergency Department [address] [place], [place] [id number] ED Clinical Summary PERSON INFORMATION Name: ZAKI HUMPHREY Age: 44 Years Sex: FEMALE : 1980 MRN: Acct#: Visit Reason: Abdominal pain; Nausea; ABDOMINAL PAIN Arrival: 05/29/2024 01:56:39 Discharge: LOS: 000 02:56 Check In: 05/29/2024 01:56:39 Checkout:05/29/2024 04:52:59 Address: [address] [place] [address] PCP: SCOTTY EAGLE PROVIDER INFORMATION Provider Role Assigned Unassigned Sergey Ayers DO ED Provider 05/29/2024 01:58:11 Mariama Hill KILN TRANSFER OPERATOR Nurse 05/29/2024 02:35:45 VITALS INFORMATION Vital Sign Triage Latest Temperature Tympanic Temperature Temporal Artery Pulse Rate 44 bpm 43 bpm O2 Sat 100 % 99 % Respiratory Rate 16 br/min 16 br/min Blood Pressure /82 mmHg /82 mmHg MEDICAL INFORMATION Medications Given: Medication Dose Route ondansetron 4 mg IV Push ketorolac 30 mg IV Push GI Cocktail 1 EA Oral HYDROmorphone (Dilaudid) 0.5 mg IV Push HYDROmorphone (Dilaudid) 0.5 mg IV Push pantoprazole (Protonix IV) 40 mg IV Push piperacillin-tazobactam (Zosyn) 3.375 gm IV Piggyback Allergy Information: No known allergies PHYSICIAN DOCUMENTATION Patient: ZAKI HUMPHREY Age: 44 years Sex: FEMALE : 1980 Associated Diagnoses: Abdominal pain in female; Biliary colic symptom Author: Sergey Ayers DO Basic Information Time seen: Date & time 05/29/2024 01:59:00, ambulatory no assistance, past the fish bowl; . History source: Patient. Arrival mode: Private vehicle, walking. History limitation: None. History of Present Illness The patient presents with nausea. Review of Systems Constitutional symptoms: This patient presents to the emergency room for evaluation of upper abdominal discomfort, which hasbeen present for 2 to 3 weeks. She has not seen her family doctor regarding this problem. She has been taking her stomach medications, on a as needed basis, as instructed by her physician, that when she has the discomfort she is to take the medicine for 7 days in a row, which she has done twice in the past couple weeks, and that seemed to help her, and then the discomfort returned again tonight but this time it would not go away. Does not radiate to any location, its mostly upper abdominal areabilaterally, more so in the mid and right upper quadrant. There has been a little bit of vomiting with no diarrhea, she still has her gallbladder and appendix, no chronic bowel syndromes, she has hada hysterectomy remote, she is not a diabetic has no cardiac condition, she notes that she has a history of slow heart rate, she lives at home, non-smoker, and no history of ulcers. She states there is stomach medications were given to her for reflux. Review of systems otherwise, no headache sore throat runny nose congestion, no cough, no shortness of breath, no variation of discomfort to breathe, no midsternal discomfort, some radiation around the abdomen but not in the back. No urinary symptoms, no extremity discomfort. He has not had any rashes. On exam, she is pleasant alert and oriented, since presence of her , room #6, a patient who is pleasant and alert, and appears uncomfortable, with discomfort palpable to the subxiphoid area and the right upper quadrant. She is not rigid bowel sounds are normal she does not have any rebound, she is not really very much overweight, her lungs are clear heart rate rhythm is regular no murmur, HEENT exam was normal, the extremities are nonswollen nontender, she has good radial dorsalis pedis pulses, heart rate and rhythm is regular, PMI left chest. She has no peripheral edema. She was given a GI cocktail which did not bring about any improvement in the discomfort. She was medicated in the IV which helped her. He took several doses of Dilaudid before she was comfortable.. Health Status Allergies: Allergic Reactions (Selected) No known allergies . Past Medical/ Family/ Social History Family history: No family history items have been selected or recorded. . Social history: Social & Psychosocial Habits Alcohol 05/29/2024 Alcohol Use: Never Substance Use 05/29/2024 Substance use: Never Comment: Denies - 2019 11:07 Jacy Longo RN, Sonia Tobacco 05/29/2024 Smoking tobacco use: Never tobacco user Electronic Cigarette/Vaping 05/29/2024 Electronic Cigarette Use: Never . Problem list: Active Problems (1) Genital herpes . Medical Decision Making Orders Launch Orders Laboratory: Test Urine 1 (Order): Urine, Stat collect, 05/29/2024 2:01 EST, Nurse collect Troponin I High Sensitivity (Order): Blood, Stat collect, 05/29/2024 2:01 EST, Lab Collect Lipase Level (Order): Blood, Stat collect, 05/29/2024 2:01 EST, Lab Collect CMP Standard (Order): Blood, Stat collect, 05/29/2024 2:01 EST, Lab Collect Urinalysis with Culture, if indicated Standard (Order): Urine, Stat (more content not included)...[facility] - Physician[facility] 05-29-2024 ED Note - PhysicianPatient: ZAKI HUMPHERY Age: 44 years Sex: FEMALE : 1980 Associated Diagnoses: Abdominal pain in female; Biliary colic symptom Author: Sergey Ayers DO Basic Information Time seen: Date & time 05/29/2024 01:59:00, ambulatory no assistance, past the fish bowl; . History source: Patient. Arrival mode: Private vehicle, walking. History limitation: None. History of Present Illness The patient presents with nausea. Review of Systems Constitutional symptoms: This patient presents to the emergency room for evaluation of upper abdominal discomfort, which hasbeen present for 2 to 3 weeks. She has not seen her family doctor regarding this problem. She has been taking her stomach medications, on a as needed basis, as instructed by her physician, that when she has the discomfort she is to take the medicine for 7 days in a row, which she has done twice in the past couple weeks, and that seemed to help her, and then the discomfort returned again tonight but this time it would not go away. Does not radiate to any location, its mostly upper abdominal areabilaterally, more so in the mid and right upper quadrant. There has been a little bit of vomiting with no diarrhea, she still has her gallbladder and appendix, no chronic bowel syndromes, she has hada hysterectomy remote, she is not a diabetic has no cardiac condition, she notes that she has a history of slow heart rate, she lives at home, non-smoker, and no history of ulcers. She states there is stomach medications were given to her for reflux. Review of systems otherwise, no headache sore throat runny nose congestion, no cough, no shortness of breath, no variation of discomfort to breathe, no midsternal discomfort, some radiation around the abdomen but not in the back. No urinary symptoms, no extremity discomfort. He has not had any rashes. On exam, she is pleasant alert and oriented, since presence of her , room #6, a patient who is pleasant and alert, and appears uncomfortable, with discomfort palpable to the subxiphoid area and the right upper quadrant. She is not rigid bowel sounds are normal she does not have any rebound, she is not really very much overweight, her lungs are clear heart rate rhythm is regular no murmur, HEENT exam was normal, the extremities are nonswollen nontender, she has good radial dorsalis pedis pulses, heart rate and rhythm is regular, PMI left chest. She has no peripheral edema. She was given a GI cocktail which did not bring about any improvement in the discomfort. She was medicated in the IV which helped her. He took several doses of Dilaudid before she was comfortable.. Health Status Allergies: Allergic Reactions (Selected) No known allergies . Past Medical/ Family/ Social History Family history: No family history items have been selected or recorded. . Social history: Social & Psychosocial Habits Alcohol 05/29/2024 Alcohol Use: Never Substance Use 05/29/2024 Substance use: Never Comment: Denies - 2019 11:07 - Qing HINKLE, Sonia Tobacco 05/29/2024 Smoking tobacco use: Never tobacco user Electronic Cigarette/Vaping 05/29/2024 Electronic Cigarette Use: Never . Problem list: Active Problems (1) Genital herpes . Medical Decision Making Orders Launch Orders Laboratory: Test Urine 1 (Order): Urine, Stat collect, 05/29/2024 2:01 EST, Nurse collect Troponin I High Sensitivity (Order): Blood, Stat collect, 05/29/2024 2:01 EST, Lab Collect Lipase Level (Order): Blood, Stat collect, 05/29/2024 2:01 EST, Lab Collect CMP Standard (Order): Blood, Stat collect, 05/29/2024 2:01 EST, Lab Collect Urinalysis with Culture, if indicated Standard (Order): Urine, Stat collect, 05/29/2024 2:01 EST, Nurse collect CBC w/ Auto Diff (Order): Blood, Stat collect, 05/29/2024 2:00 EST, Lab Collect Patient Care: Saline Lock Insert (Order): 05/29/2024 2:00 EST Pharmacy: ketorolac (Order): 30 mg, IV Push, Once ondansetron (Order): 4 mg, IV Push, Once Cardiovascular: EKG (Order): 05/29/2024 2:01 EST, Other, Launch Orders Pharmacy: GI Cocktail (Order): 1 EA, Oral, Once, Launch Orders Radiology: CT Abdomen/Pelvis w/o Contrast (Order): 05/29/2024 2:18 EST Stat, upper abd discomfort, Allow Modification Per Radiologist, Transport Mode: Wheelchair, No, Launch Orders Pharmacy: Dilaudid (Order): 0.5 mg, IV Push, Once, Launch Orders Nutrition Services: Diet Order (Order): 05/29/2024 3:01 EST, NPO, Nursing Isolation Status: None, Constant Indicator, Launch Orders Pharmacy: Dilaudid (Order): 0.5 mg, IV Push, Once Protonix IV (Order): 40 mg, IV Push, Once , Launch Orders Radiology: US RUQ (Order): 05/29/2024 3:44 EST Stat, pain,, Allow Modification Per Radiologist, Transport Mode: Portable , Launch Orders Pharmacy: piperacillin-tazobactam (Zosyn) (Order): 3.375 gm, IV Piggyback, Once . Electrocardiogram: Time 05/29/2024 02:05:00, rate 37, normal sinus rhythm, No ST-T changes, no ectop (more content not included)...[facility]Nursingon [id number] Note-[id number] Dr. Boyle paged and returns call at [phone]. Speaks with Dr. Ayers regarding admission for surgery. [phone] Dr. Boyle accepts [phone] Nursing supervisor crack off called for bed assignment [facility] Patient Education Noteon 30-04-0600ZV Patient Education NoteEducation [facility] Patient Summaryon [id number] [facility] [address] [place] [address] PATIENT DISCHARGE INSTRUCTIONS Patient Information Name: ZAKI HUMPHREY Age: 44 Years Date of : 1980 Reason For Visit: Abdominal pain; Nausea; ABDOMINAL PAIN Arrival Time: 05/29/2024 01:56:39 Primary Care Physician: SCOTTY EAGLE Attending Physician: Erwin Boyle MD Comment: Visit Diagnosis: Diagnoses This Visit Abdominal pain ([id number]) Abdominal pain in female (R10.9) Biliary colic symptom (K80.50) Nausea ([id number]) The Pharmacy at [facility] is open Sunday through Sunday from 9A to 6P and Sunday and Sunday from 9A to 5P Prescription Information: If you have been given a prescription for narcotics, seek immediate medical attention if you have any difficulty breathing or any sudden status changes such as confusion andsleepiness. If you or anyone you know is experiencing suicidal thoughts, mental health, alcohol and/or drug addiction problems; contact the [facility] 18/12 Crisis Hotline -Text 8MJUX wk 805382. If you received any narcotics, sedation, or [...] business decisions or sign any legal documents Medication Information: The exam and treatment you received today in the [facility] Emergency Department were for an urgent problem and are not intended as complete care. It is important for you to follow up with a doctor, nurse practitioner, or physician?s licensed nursing assistant for ongoing care. If your symptoms become worse or you donot improve as expected and you are unable to reach your usual health care provider, you should return to the Emergency Department, we are available 24 hours a day. For those patients who have received Radiology results, the interpretation of your X-ray as given to you by our Emergency Department physician is only a preliminary report. The Radiologist will review your films and if there is a change in the diagnosis you will be notified by phone. Please make sure you have provided a working phone number so we can reach you if necessary. In the event that you had a lab culture while you were a patient in the Emergency Department, you will be notified by phone if there is a need to change your antibiotic. Please make sure you have provided a working phone number so we can reach you if necessary. [facility] Emergency Department has provided you with a complete list of medications post discharge. Please inform your screen printer/provider of your visit and for further instruction on these medications. Any specific questions regarding your chronic medications and dosages should be discussed with your primary care physician(s) and/or pharmacist. Visit Information Allergies: Substance Reaction Symptoms Type Comments No known allergies Drug Vital Signs: Vitals and Measurements this Visit (last charted value for your 05/29/2024 visit) Vital Signs This Visit Temperature Oral: 37 DegC Peripheral Pulse Rate: 43 bpm Respiratory Rate: 16 br/min Systolic Blood Pressure: 118 mmHg Diastolic Blood Pressure: 78 mmHg SpO2: 99 % Oxygen Therapy: Room air Measurements This Visit Height/Length Measured: 160.02 cm Weight Measured: 70.31 kg Weight Dosin.310 kg Body Mass Index: 27.46 kg/m2 Problems List: Problem Onset Comments No Problems found Patient Education Viruses or Bacteria What?s got you sick? Antibiotics only treat bacterial infections. Viral illnesses cannot be treated with antibiotics. When an antibiotic is not prescribed, ask your healthcare professional for tips on how to relieve symptoms and feel better. Usual Cause Illness Viruses Bacteria Antibiotic Needed Cold/Runny Nose ? NO Bronchitis/Chest Cold (in otherwise healthy children and adults) ? NO Whooping Cough ? Yes Flu ? NO Strep Throat ? Yes Sore Throat (except strep) ? NO Fluid in the middle ear (otitis media with effusion) ? NO Urinary Tract Infection ? Yes Antibiotics Aren?t Always the Answer www.cdc.gov/getsmart GET SMART Know When Antibiotics Work U.S. Department of Health and Human Services Centers for Disease Control and Prevention January 2014NoC[facility] Extra Redon [id number] CollectedYesInvalid Interpretation The Surgical Hospital at SouthwoodsComment on above:Performed By: #### [id number], [id number], [id number], [id number], [id number], [id number], [id number] ####[facility] (DEFAULT)[address] [place] [address] [id number] Patient Summaryon 05-29-2024 Inpatient Patient Summary[address] [address] Patient Discharge Instructions Name: KAMZAKI HOLMAN : 1980 Patient Address: [address] [place] [address] Primary Care Provider: Name: SCOTTY EAGLE After you are discharged if you find you have any questions, please, call [phone] ext [phone] to speak to a nurse. The Pharmacy at [facility] is open Sunday through Sunday from 9A to 6P and Sunday and Sunday from 9A to 5P Discharge Diagnosis: Abdominal pain in female; Biliary colic symptom Prescription Information: If you have been given a prescription for narcotics, seek immediate medical attention if you have any difficulty breathing or any sudden status changes such as confusion andsleepiness. If you or anyone you know is experiencing suicidal thoughts, mental health, alcohol and/or drug addiction problems; contact the [facility] 18/12 Crisis Hotline -Text 4HQTE [place] 533555. If you received any narcotics, sedation, or [...] business decisions or sign any legal documents [facility] would like to thank you for allowing us to assist you with your healthcare needs.The following includes patient education materials and information regarding your injury/illness. ZAKI HUMPHREY has been given the following list of follow-up instructions, prescriptions, and patient education materials: Follow-up Instructions With: Address: When: Erwin Boyle [address] [place] [address] Business (1) 06/12/2024 1:00 PM With: Address: When: SCOTTY EAGLE [facility] [place] [id number] [facility] (1) Medications During the course of your visit, your medication list was updated with the most current information. The details of those changes are reflected below: New Medications [facility], [address] [place], [place] [id number], [phone] acetaminophen-hydrocodone (acetaminophen-hydrocodone 325 mg-5 mg oral tablet) 1 tab(s) Oral (given by mouth) every 6 hours. as needed as needed for pain. Refills: 0. ibuprofen (ibuprofen 600 mg oral tablet) 1 tab(s) Oral (given by mouth) every 6 hours. as needed Pain - Moderate. Refills: 0. It is important to always keep an active list of medications available so that you can share with other providers and manage your medications appropriately. As an additional courtesy, we are also providing you with your final active medications list that you can keep with you. acetaminophen-hydrocodone (acetaminophen-hydrocodone 325 mg-5 mg oral tablet) 1 tab(s) Oral (given by mouth) every 6 hours. as needed as needed for pain. Refills: 0. ibuprofen (ibuprofen 600 mg oral tablet) 1 tab(s) Oral (given by mouth) every 6 hours. as needed Pain - Moderate. Refills: 0. Take only the medications listed above. Contact your doctor prior to taking any medications not on this list. Medication leaflets, if any, will display below Diet & Activity Patient Activity Level: Patient Diet: Regular Patient Activity Restrictions: Patient education materials, if any, will display below Laparoscopic Cholecystectomy, Care After The following information offers guidance on how to care for yourself after your procedure. Your health care provider may also give you more specific instructions. If you have problems or questions, contact your health care provider. What can I expect after the procedure? After the procedure, it is common to have: ? Pain at your incision sites. You will be given medicines to control this pain. ? Mild nausea or vomiting. ? Bloating and possible shoulder pain from the gas that was used during the procedure. Follow these instructions at home: Medicines ? Prescriptions for Delmont and ibuprofen were sent to your pharmacy. Take them as needed for pain. You can take them together. ? The Delmont prescribed to you: ? Requires you to avoid driving or using machinery. ? Can cause constipation. You may need to take these actions to prevent or treat constipation: ? Drink enough fluid to keep your urine pale yellow. ? Take ndkm-mhu-alakkdm or prescription medicines. ? Eat foods that are high in fiber, such as beans, whole grains, and fresh fruits and vegetables. ? Limit foods that are high in fat and processed sugars, such as fried or sweet foods. Incision care ? Follow instructions from your health care provider about how to take care of your incisions. Makesure you: ? Wash your hands with soap and water (more content not included)...[facility] 05-29-2024 Specimen: [id number] Received: 05/30/24 Status: ALEXIA Goldberg Num: [id number] Spec Type: Surgical Subm Dr: Erwin Boyle MD Tissues: A Gallbladder (GALLBLADDER) Procedures: Liza RUSSELL/Danny L3 Age/ Patient Sex Location Account Attending Physician Zaki Humphrey 44/F [facility] [id number] Erwin Boyle MD SPEC NUM: [id number] RECD: 05/30/24 STATUS: ALEXIA GOLDBERG NUM: [id number] JESSENIA: 05/29/[address]: Erwin Boyle MD ENTERED: 05/30/[address] [facility] [address]: Ko,Lab SPEC TYPE: Surgical DEPT: MAG ARNOLD ENTERED BY: [id number] RECV BY: [id number] ORDERED: HE, Gross/Micro L3 ORDERED: HE, Gross/Micro L3 Pathological Diagnosis Gallbladder, cholecystectomy: Chronic cholecystitis and cholelithiasis. Clinical Information Abdominal pain Gross Description Part A is received in formalin labeled with the patients name, date of , and gallbladder is and intact gallbladder, 9.5 x 4.3 x 2.5 cm, with a 0.3 cm cystic duct closed by a silver metallic clip. The serosa is keith-pink, vascular, smooth and glistening; the hepatic bed is rough and irregular. The gallbladder is open to exude a pale desouza, thick material with numerous (at least 20), keith-yellow, multifaceted calculi (ranging from 0.3 to 1.5 cm in greatest dimension), 3.5 x 3.2 x 1.3 cm in aggregate. The mucosa is desouza-keith to pink, focally erythematous, and coarsely trabeculated. The wall the gallbladder ranges from 0.1 to 0.3 cm in thickness. Computer Architect sections are submitted in a single cassette. (1, ss, [id number] A) CPT Codes 46533 Specimen: [id number] Received: 05/30/24 Status: ALEXIA Goldberg Num: [id number] Spec Type: Surgical Subm Dr: Erwin Boyle MD Tissues: A Gallbladder (GALLBLADDER) Procedures: HE, Liza/Micro L3 Patient: Zaki Humphrey [id number] (Continued) Signed (signature on file) Marie Bunn MD 06/02/[address] [place] [address] Physician GroupLipaseon [id number] Level 29.0 IU/TIdlqxm02.0-51.0[facility] CenterComment on above:Performed By: #### [id number], [id number], [id number], [id number], [id number] ####[facility] (DEFAULT)[address] [place] [address] [id number] Intraoperative Recordon [id number] Intraoperative RecordMAGR Intra-Op Record Summary Primary Physician: Erwin Boyle MD Finalized Date/Time: 05/29/24 14:59:04 Pt. Name: ZAKI HUMPHREY/Sex: 1980 FEMALE Med Rec #: [id number] Physician: Erwin Boyle MD Financial #: [id number] Pt. Type: O Room/Bed: [facility]/ Admit/Disch: 05/29/24 01:56:39 - Institution: Case Times MAGR Entry 1 Patient In Room Time 05/29/24 08:39:00 Out Room Time 05/29/24 10:05:00 Anesthesia Start Time 05/29/24 08:38:00 Stop Time 05/29/24 10:05:00 Surgery Start Time 05/29/24 09:00:00 Stop Time 05/29/24 09:50:00 Last Modified By: Olga Kerns RN 05/29/24 10:06:13 Case Attendance MAGR Entry 1 Entry 2 Entry 3 Case Attendee Erwin Boyle MD, Debra RN Wilkins DAYTIME CAREGIVER, Cierra DAYTIME CAREGIVER CARIA Role Performed Surgeon - Primary Pathologist Fbi Field Agent Time In 05/29/24 08:39:00 05/29/24 08:39:00 05/29/24 08:39:00 Time Out 05/29/24 09:49:00 05/29/24 10:05:00 05/29/24 10:05:00 Procedure Cholecystectomy Cholecystectomy Cholecystectomy Laparoscopic Laparoscopic Laparoscopic Last Modified By: Olga Kerns RN, Debra RN Myers, Debra RN 05/29/24 10:06:31 05/29/24 10:06:31 05/29/24 10:06:31 Entry 4 Entry 5 Entry 6 Case Attendee Say Brooks MD, Kelly CST Long, Barbara RN Role Performed Anesthesiologist of Scrub Personnel Pathologist Record Time In 05/29/24 08:39:00 05/29/24 08:39:00 05/29/24 08:39:00 Time Out 05/29/24 10:05:00 05/29/24 10:05:00 05/29/24 09:43:00 Procedure Cholecystectomy Cholecystectomy Cholecystectomy Laparoscopic Laparoscopic Laparoscopic Last Modified By: Olga Kerns RN, Debra RN Myers, Debra RN 05/29/24 10:06:31 05/29/24 10:06:31 05/29/24 10:06:31 Surgical Procedures MAGR Pre-Care Text: A.20 Verifies operative procedure, surgical site, and laterality Im.150 Develops individualized plan of care Entry 1 Procedure Cholecystectomy Primary Procedure Yes Laparoscopic Primary Surgeon Erwin Boyle MD Surgeon Comment Lap Renetta Start 05/29/24 09:00:00 Stop 05/29/24 09:50:00 Anesthesia Type General Surgical Service General Wound Class Clean-Contaminated Technique Details Closure Technique Primary Entire procedure Yes was performed via laparoscope or robotic assistance Last Modified By: Olga Kerns RN 05/29/24 10:06:25 Post-Care Text: O.730 The patient's care is consistent with the individualized perioperative plan of care General Case Data MAGR Pre-Care Text: A.350.1 Classifies surgical wound Entry 1 Case Information OR MAGR OR 05 Case Level Level 4 Wound Class Clean-Contaminated Specialty General ASA Class 1 Diagnosis Preop Diagnosis Cholelithiasis Postop Same As Preop Yes Postop Diagnosis Cholelithiasis Blunt or No Is the procedure No penetrating injury considered occured prior to Emergent/Urgent? the start of the procedure: Last Modified By: Olga Kerns RN 05/29/24 09:03:58 Post-Care Text: O.760 Patient receives consistent and comparable care regardless of the setting Time Out MAGR Entry 1 Procedure(s) Cholecystectomy Laparoscopic Time Out Checklist Verifications Team Introductions Yes Confirmed Identity, Yes Completed Procedure, Incision Site, and Consent(s) Presence of Yes Site Verification, Yes Necessary Site Marking, Site Procedural Marking Equipment, Devices, Alternative, and/or and Implants Site Marking Verified Exception in Accordance with Facility Policy Anesthesia Review Antibiotic Received Yes All Anesthesia Yes Within an Concerns Addressed Appropriate Time Interval Prior to Surgical Incision Surgeon Review Anticipated Blood No Expected Case No Loss Risk Addressed Duration Addressed Critical and No Non-Routine Steps to be Performed Addressed Nurse Review Equipment Yes Fire Risk Yes Checks/Concerns Assessment Addressed Completed and Interventions Performed Diagnostic and n/a Sterilization n/a Radiological Test Concerns Addressed Results Displayed are Appropriate and Labeled Other Concerns n/a Addressed Time Out Say Brooks MD, Time Out Time 05/29/24 08:59:00 Participants Erwin Boyle MD, Olga Kerns RN, Naseem DAYTIME CAREGIVER, Cierra DAYTIME CAREGIVER CSFA, Maggie Brown DAYTIME CAREGIVER Last Modified By: Olga Kerns RN 05/29/24 09:03:40 Patient Positioning MAGR Pre-Care Text: A.280 Identifies baseline musculoskeletal status Im.40 Positions the patient Im.80 Applies safety devices Entry 1 Procedure Cholecystectomy Body Position Supine Laparoscopic Left Arm Position Extended on padded arm Right Arm Position Extended on padded arm board board Left Leg Position Extended Right Leg Position Extended Feet Uncrossed? Yes Press Points Checked Yes Positioning Device Arm Boards, Arm Strap, Outcome Met (O.80) Yes Christian, Safety Strap Last Modified By: Olga Kerns RN 05/29/24 09:03:51 Post-Care Text: E.290 Evaluates musculoskeletal status O.80 Patient is free from signs and sy (more content not included)...[facility] PACU Recordon [id number] PACU RecordDIGN[facility] Record Summary Primary Physician: Erwin Boyle MD Finalized Date/Time: 05/29/24 10:52:48 Pt. Name: ZAKI HUMPHREYMYA GutierrezO.B./Sex: 1980 FEMALE Med Rec #: [id number] Physician: Erwin Boyle MD Financial #: [id number] Pt. Type: O Room/Bed: [facility] Admit/Disch: 05/29/24 01:56:39 - Institution: PACU Case Times MAGR Entry 1 In PACU I 05/29/24 10:07:00 Discharge from PACU 05/29/24 10:42:00 I Last Modified By: Mark Longoria RN 05/29/24 10:52:44 Finalized By: Mark Longoria RN Document Signatures Signed By: Mark Longoria RN 05/29/24 10:52[facility] Health SystemNutrition Noteon 06-27-3702Rodjygacy NoteChart reviewed; 44yo female diagnosed with abd pain; s/p lap choly today; diet order clear liquids post op; no recent weight changes; no difficulties with chew/swallow identified on admit; patient currently appears at low nutrition risk with potential for increased risk if unable to advance po by 06/02/24; monitor for diet advance, po, wt/labs for any changes; follow, assist prn. [facility] HospitalProgress Note - Nurseon [id number] Note - NurseRelates pain slightly increasing to a 6. Given poncho crackers prior to medicating with Delmont. arrives at bedside. [Electronically Signed on: 05/29/2024 12:18 EST] Estrella Dunlap RN [Verified on: 05/29/2024 12:18 EST] Estrella Dunlap RNOhioHealth Pickerington Methodist Hospitaless Note - NurseReturns to room via bed from Recovery alert and oriented. Denies complaints. Relate surgical incisio ns sore with a score of 4. Denies the need for pain medication. Vital signs per iview. Taking ice chips. [Electronically Signed on: 05/29/2024 12:17 EST] Estrella Dunlap RN [Verified on: 05/29/2024 12:17 EST] Estrella Dunlap RNMercy Health St[facility] Note - Nursetaken via cart to OR Report to MANAN Solitario. Preop checklist complete [Electronically Signed on: 05/29/2024 08:27 EST] Estrella Dunlap RN [Verified on: 05/29/2024 08:27 EST] Estrella Dunlap RNBlanchard Valley Health SystemTelemetry Stripson 48-25-9400Wpatuegql [id number]#1.00OTGTIFFBlanchard Valley Health SystemTnI HSon 29-41-1833Faanjzdw I High Sensitivity<2.3Normal<=15.0[facility] CenterComment on above:Performed By: #### [id number], [id number], [id number], [id number], [id number], [id number], [id number] ####[facility] (DEFAULT)[address] [place] [address] 39426YH Sfikf8bv 63-44-4833PX Amorph.FewNormal [facility] CenterComment on above:Order Comment: Urinalysis Microscopic order added on by [employer] Expert Rules system.Performed By: #### [id number], [id number] ####[facility] (DEFAULT)[address] [place], [place] [address]UA BacteriaNoneNormMercy Health Fairfield HospitalComment on above:Order Comment: Urinalysis Microscopic order added on by [employer] Expert Rules system.Performed By: #### [id number], [id number] ####[facility] (DEFAULT)[address] [place], [place] [address]UA RBCNone SeenNoCleveland Clinic Hillcrest HospitalComment on above:Order Comment: Urinalysis Microscopic order added on by [employer] Expert Rules system. Performed By: #### [id number], [id number] ####[facility] (DEFAULT)[address] [place], [place] [address]UA Squam EpiRareNFlower Hospital Comment on above:Order Comment: Urinalysis Microscopic order added on by [employer] Expert Rules system.Performed By: #### [id number], [id number] ####[facility] (DEFAULT)[address] [place], [place] [address]UA WBCNone SeenNoCleveland Clinic Avon HospitalComment on above:Order Comment: Urinalysis Microscopic order added on by [employer] Expert Rules system.Performed By: #### [id number], [id number] ####[facility] (DEFAULT)[address] [place], [place] [address]UA w Culture if Ind Standardon 48-55-5702Hpssxctsbr UABlanchard Valley Health System Comment on above:Performed By: #### [id number], [id number] ####[facility] (DEFAULT)[address] [place] [address] 58635Gweyp (U)YellowNormalMagruder HospitalComment on above:Performed By: #### [id number], [id number] ####[facility] (DEFAULT)[address] [place] [address] 59733Qlsospf?Not Indicated Invalid Interpretation CodeMagruder HospitalComment on above:Result Comment: Result created by rule GL_MAGR_ADD_UA_CULT Result created by rule GL_MAGR_ADD_UA_CULTPerformed By: #### [id number], [id number] ####[facility] (DEFAULT)[address] [place] [address] 47282Oeczhcm (U) [Mass/Vol]Negative NormalMagrwhite hospital HospitalComment on above:Performed By: #### [id number], [id number] ####[facility] (DEFAULT)[address] [place] [address] 40678Fiokflr Ql (U)NegativeNormalMagruder HospitalComment on above:Performed By: #### [id number], [id number] ####[facility] (DEFAULT)[address] [place] [address] 372[address]Dalel?IndicatedInvalid Interpretation CodeMagrwhite hospital HospitalComment on above:Result Comment: Result created by rule GL_MAGR_ADD_UA_MICROPerformed By: #### [id number], [id number] ####[facility] (DEFAULT)[address] [place] [address] 10622RJ BilirubinNegativeNormalMagrwhite hospital HospitalComment on above: Performed By: #### [id number], [id number] ####[facility] (DEFAULT)[address] [place] [address] 46439CR BloodNegativeNormalNEGATIVEMagruder HospitalComment on above:Performed By: #### [id number], [id number] ####[facility] (DEFAULT)[address] [place] [address] 34531QD ClarityCLOUDY AbnormalCLEARMagrwhite hospital HospitalComment on above:Performed By: #### [id number], [id number] ####[facility] (DEFAULT)[address] [place] [address] 99645ND Leuk EstNegativeNormalNEGHenry County Hospital HospitalComment on above: Performed By: #### [id number], [id number] ####[facility] (DEFAULT)[address] [place] [address] 95822BW NitriteNegativeNormalNEGATIVETrumbull Memorial Hospital HospitalComment on above:Performed By: #### [id number], [id number] ####[facility] (DEFAULT)[address] [place] [address] 78918AJ pH7.5Skipcu7-3 [facility] HospitalComment on above:Performed By: #### [id number], [id number] ####[facility] (DEFAULT)[address] [place] [address] 266[address]MN Protein NegativeNormalNEGHenry County Hospital HospitalComment on above:Performed By: #### [id number], [id number] ####[facility] (DEFAULT)[address] [place] [address] 67325BZ Spec Grav1.512Pukpix9.001-1.035[facility] HospitalComment on above:Performed By: #### [id number], [id number] ####[facility] (DEFAULT)[address] [place] [address] 95565QR Urobilinogen0.2 mg/dLNormal0.2-1.0 [facility] CenterComment on above:Performed By: #### [id number], [id number] ####[facility] (DEFAULT)[address] [place] [address] 40230Jdmsc SourceVoidedNormalTrumbull Memorial Hospital HospitalComment on above:Performed By: #### [id number], [id number] ####[facility] (DEFAULT)[address] [place] [address] 72372QC RUQon 46-92-5406BR RUQEXAM: US RUQ HISTORY: RUQ pain COMPARISON: CT of the abdomen and pelvis from earlier today. TECHNIQUE: Sonographic evaluation of the right upper quadrant abdominal structures is performed in limited fashion. FINDINGS: The size, configuration, and internal echotexture of the liver is normal. Hepatopedal blood flow noted. Gallbladder is fluid-filled. No signs of thickened lujan. Echogenic mobile stones with posterior acoustic shadowing are present in the dependent gallbladder neck. No tenderness over the gallbladder is observed by the fabrication operator during the examination. Extrahepatic CBD is measuring up to 0.6 cm. The right kidney is normal morphology, length is 10.1 cm. No mass or hydronephrosis. Pancreas is not well seen. IMPRESSION: Cholelithiasis without signs of acute cholecystitis or biliary ductal dilation. Final Dictated by: Igor Pink DO Dictated DT/TM: 05/29/24 8:18 Signed (Electronic Signature): Igor Pink DO 05/29/24 8:30 am Technologist: [facility],APTIMA HPV,AGE GDLNon 48-90-4392LFO GDLN ACOG TESTINGNote.NOMS HealthcareComment on above:TESTS RESULT FLAG UNITS REF RANGE LAB Clinician Provided Cytology Information Source.............Cervix No. of containers..01 ThinPrep Vial Age Algo ACOG Shefali... FLAG LEGEND: L-Low Normal,H-High Normal,LL-Alert Low,HH-Alert High <-Panic Low,>-Panic High,A-Abnormal,AA-Critical Abnormal Performed at: 01 =[address] [place] [address] Alicja Evans MD, HPV APTIMANegativeNegativeNOMS HealthcareComment on above:This nucleic acid amplification test detects fourteen high- risk HPV types (16,18,31,33,35,39,45,51,52,56,58,59,66,68) without differentiation. Performed at: =[facility], [place] [id number] Reading Coach: Alicja Evans MD, Phone: [phone] Performed at: [address], [place] [id number] Reading Coach: Alicja Evans MD, Phone: [phone] IGP, APTIMA HPV, RFX 16/18,45Note.NOMS HealthcareComment on above:TESTS RESULT FLAG UNITS REF RANGE LAB DIAGNOSIS: 02 NEGATIVE FOR INTRAEPITHELIAL LESION OR MALIGNANCY. Specimen adequacy: 02 Satisfactory for evaluation. No endocervical component is identified. Performed by: Katie Barbosa, Design Transferrer (ASCP) . 02 Note: Note 02 The Pap smear is a screening test designed to aid in the detection of premalignant and malignant conditions of the uterine cervix. It is not a diagnostic procedure and should not be used as the sole means of detecting cervical cancer. Both false-positive and false-negative reports do occur. Test Methodology: Note 02 This liquid based ThinPrep(R) pap test was screened with the use of an image guided system. HPV Genotype Reflex Note 02 Criteria not met, HPV Genotype not performed. FLAG LEGEND: L-Low Normal,H-High Normal,LL-Alert Low,HH-Alert High <-Panic Low,>-Panic High,A-Abnormal,AA-Critical Abnormal Performed at: [address] [facility] [place] [address] Alicja Evans MD, SPATULA-ALONE CERVIX [facility] TOMOSYNTHESIS SCREENING BIon 53-69-8168[place] [address] Mammography Report Signed Patient: ZAKI HUMPHREY MR#: [id number] : 1980 Acct:[id number] Age/Sex: 44 / F ADM Date: 04/11/24 Loc: MAMMO Attending Dr: Cheng Joseph D.O. Ordering Physician: Cheng Joseph D.O. Results: Date of Service: 04/11/24 Follow Up: Procedure(s): MM tomosynthesis screening BI Accession Number(s): [id number] cc: Cheng Joseph D.O.; Physician,Non-Staff Courtney Patient Name: ZAKI HUMPHREY MR#: [id number] : 1980 Exam Date: 04/11/2024 Ordering Doctor: DR Cheng Joseph . RADIOLOGY REPORT PROCEDURE: MM TOMOSYNTHESIS SCREENING BI COMPARISON: MM TOMOSYNTHESIS SCREENING BI, 04/10/2023. MG MAMM SCREEN 3D JUDY CAD, 03/08/2022. MG MAMM LT DIAG W CAD, 03/07/2017. MG MAMM JUDY DIAG W CAD, 08/07/2016. INDICATIONS: Screening Calculator Name NCI Breast Cancer Risk Assessment Tool 5 Year Breast Cancer Risk 2.10% Lifetime Breast Cancer Risk 16.90% Personal Breast Cancer No Personal Ovarian Cancer No Treatments None Family Cancers Grandfather-maternal with throat cancer at age 70; Aunt-maternal with lung cancer at age 22. LOCATION: [facility] BREAST COMPOSITION: There are scattered areas of fibroglandular density. FINDINGS: DIAGNOSTIC CATEGORY 2--BENIGN FINDING: RIGHT BREAST: No significant suspicious finding. No significant change has occurred. LEFT BREAST: No significant suspicious finding. Stable residual fibroglandular tissue versus scarring within posterior upper-outer quadrant and associated biopsy marker clip. No significant change has occurred. RECOMMENDATIONS: ROUTINE MAMMOGRAM AND CLINICAL EVALUATION IN 12 MONTHS. PLEASE NOTE: A NORMAL MAMMOGRAM DOES NOT EXCLUDE THE POSSIBILITY OF BREAST CANCER. A CLINICALLY SUSPICIOUS PALPABLE LUMP SHOULD BE BIOPSIED. Dictated by: Hola Suarez M.D. on 04/11/2024 at 10:22 Approved by: Hola Suarez M.D. on 04/11/2024 at 10:29 Dictated By: Hola Suarez M.D. Signed By: 04/11/24 1030 DD/ 1029 TD/TT: Section Laborer:TBHRadiology, Radiologist, - 04/11/2024 [place] [address] Mammography Report Signed Patient: ZAKI HUMPHREY MR#: [id number] : 1980 Acct:[id number] Age/Sex: 44 / F ADM Date: 04/11/24 Loc: MAMMO Attending Dr: Cheng Joseph D.O. Ordering Physician: Cheng Joseph D.O. Results: Date of Service: 04/11/24 Follow Up: Procedure(s): MM tomosynthesis screening BI Accession Number(s): [id number] cc: Cheng Joseph D.O.; Physician,Non-Staff Courtney Patient Name: ZAKI HUMPHREY MR#: [id number] : 1980 Exam Date: 04/11/2024 Ordering Doctor: DR Cheng Joseph . RADIOLOGY REPORT PROCEDURE: MM TOMOSYNTHESIS SCREENING BI COMPARISON: MM TOMOSYNTHESIS SCREENING BI, 04/10/2023. MG MAMM SCREEN 3D JUDY CAD, 03/08/2022. MG MAMM LT DIAG W CAD, 03/07/2017. MG MAMM JUDY DIAG W CAD, 08/07/2016. INDICATIONS: Screening Calculator Name NCI Breast Cancer Risk Assessment Tool 5 Year Breast Cancer Risk 2.10% Lifetime Breast Cancer Risk 16.90% Personal Breast Cancer No Personal Ovarian Cancer No Treatments None Family Cancers Grandfather-maternal with throat cancer at age 70; Aunt-maternal with lung cancer at age 22. LOCATION: [facility] BREAST COMPOSITION: There are scattered areas of fibroglandular density. FINDINGS: DIAGNOSTIC CATEGORY 2--BENIGN FINDING: RIGHT BREAST: No significant suspicious finding. No significant change has occurred. LEFT BREAST: No significant suspicious finding. Stable residual fibroglandular tissue versus scarring within posterior upper-outer quadrant and associated biopsy marker clip. No significant change has occurred. RECOMMENDATIONS: ROUTINE MAMMOGRAM AND CLINICAL EVALUATION IN 12 MONTHS. PLEASE NOTE: A NORMAL MAMMOGRAM DOES NOT EXCLUDE THE POSSIBILITY OF BREAST CANCER. A CLINICALLY SUSPICIOUS PALPABLE LUMP SHOULD BE BIOPSIED. Dictated by: Hola Suarez M.D. on 04/11/2024 at 10:22 Approved by: Hola Suarez M.D. on 04/11/2024 at 10:29 Dictated By: Hola Suarez M.D. Signed By: 04/11/24 1030 DD/ 1029 TD/TT: Section Laborer: [facility] HealthcareRadiology Study observation (narrative)[facility] TOMOSYNTHESIS SCREENING BIOrdered By: Radiologist Radiology on [id number] [facility] Work Phone: comprehensive metabolic panelon 36-99-0604Tdqvcgz [Mass/Vol]4.3 g/dL3.2 - 5.3 g/dLProMedica Health SystemALP [Catalytic activity/Vol]68 U/L39 - 130 U/LProMedica Health SystemALT No additional P-5'-P [Catalytic activity/Vol]34 U/LHigh0 - 31 U/LProMedica Health SystemAnion gap [Moles/Vol]7 mmol/L5 - 15 mmol/LProMedica Health SystemAST [Catalytic activity/Vol]24 U/L0 - 41 U/LProMedica Health SystemBilirubin [Mass/Vol]0.5 mg/dL0.3 - 1.2 mg/dLProMedica Health SystemCalcium [Mass/Vol]9.5 mg/dL8.5 - 10.5 mg/dLCrystal Clinic Orthopedic CenterChloride [Moles/Vol]105 mmol/L98 - 109 mmol/L [facility] HospitalCO2 [Moles/Vol]31 mmol/L22 - 32 mmol/[facility] HospitalCreatinine [Mass/Vol]0.69 mg/dL0.40 - 1.00 mg/dLCrystal Clinic Orthopedic Center Comment on above:METHOD TRACEABLE TO [facility] STANDARDeGFR (CKD-EPI)non-race dependent- [facility] Medical CenterComment on above: Reported eGFR is based on the CKD-EPI 2020 equation that does not use a race coefficient. Glucose [Mass/Vol]88 mg/dL65 - 99 mg/dLCrystal Clinic Orthopedic CenterInterpretation and review of laboratory resultsAbnormalCrystal Clinic Orthopedic CenterPotassium [Moles/Vol]4.3 mmol/L3.5 - 5.0 mmol/[facility] SystemProtein [Mass/Vol] 7.0 g/dL6.0 - 8.0 g/dLAtrium Health Kings Mountainodium [Moles/Vol]143 mmol/L134 - 146 mmol/[facility] HospitalUrea nitrogen [Mass/Vol]13 mg/dL5 - 23 mg/dL [facility] CenterLipid 1996 panelon 48-34-8063Zhxzvceaabv [Mass/Vol]151 mg/dL150 - 200 mg/dLCrystal Clinic Orthopedic CenterCholesterol in HDL [Mass/Vol]50 mg/dL 39 - PINF mg/dLCrystal Clinic Orthopedic CenterComment on above: HDL <40 mg/dL - High Risk HDL > or = 40mg/dL- Desirable HDL >60 mg/dL - Negative Risk Cholesterol in LDL [Mass/Vol]80 mg/dLNINF - 130 mg/dLCrystal Clinic Orthopedic Center Comment on above: LDL <100 mg/dL - Desirable LDL >160 mg/dL - High Risk Cholesterol in VLDL [Mass/Vol]21 mg/dL0 - 30 mg/dLCrystal Clinic Orthopedic Center Cholesterol.total/Cholesterol in HDL [Mass ratio]3.0 {ratio}1.0 - 5.0[facility] CenterTriglyceride [Mass/Vol]107 mg/dL27 - 150 mg/dLCrystal Clinic Orthopedic CenterNo Panel Informationon 15-05-4929CalDjrmmqUK HealthcareCytology Cervical or vaginal smear or scraping studyOrdered By: Tomasa Cantor on 15-25-4701SJEO HealthcareUS PELVIS AND TRANSVAGon 52-56-6077QH PELVIS AND TRANSVAGEXAMINATION: US PELVIS AND TRANSVAG HISTORY: Cyst of [...] Electronically authenticated by: HOLA SUAREZ Date: 2022-05-09 16:44[facility] AUTO DIFFon [id number] #0.0 103/ulNormal0.0-0.1Mer[facility] West HospitalComment on above:Performed By: #### CBC #### [facility] [address] [address] [address] Rin Camposphils/100 WBC (Bld)0.5 %Normal0.2-2.0[facility] Comment on above:Performed By: #### CBC #### [facility] [address] [address] [address] Rin Rooney #0.1 103/ulNormal0.0-0.7The [facility] CenterComment on above: Performed By: #### CBC #### [facility] [address] [place] [address] Dr. Rin Fineosinophils/100 WBC (Bld)2.2 %Normal0.9-7.0[facility] Comment on above:Performed By: #### CBC #### [facility] [address] [place] [address] Dr. Rin Finerythrocyte distribution width (RBC) [Ratio]12.1 %Itleld62.0-15.0 [facility] CenterComment on above:Performed By: #### CBC #### [facility] [address] [place] [address] Dr. Rin PrideHematocrit (Bld) [Volume fraction]41.8 %Xxvdbt11.0-48.0The [facility] CenterComment on above:Performed By: #### CBC #### [facility] [address] [place] [address] Dr. Rin PrideHemoglobin (Bld) [Mass/Vol]14.1 g/oAOiscal46.0-16.0The [facility] CenterComment on above:Performed By: #### CBC #### [facility] [address] [place] [address] Dr. Rin Crespo #0.01 10e3/ulNormal0.00-0.03The [facility] CenterComment on above:Performed By: #### CBC #### [facility] [address] [place] [address] Dr. Rin Crespo %0.2 %Normal0.0-0.5The [facility] CenterComment on above: Performed By: #### CBC #### [facility] [address] [place] [address] Dr. Rin HerreraMPH #2.6 103/ulNormal1.2-3.8The [facility] CenterComment on above:Performed By: #### CBC #### [facility] [address] [place] [address] Dr. Rin Herreramphocytes/100 WBC (Bld)43.8 %Vdarbc64.5-60.0[facility] CenterComment on above:Performed By: #### CBC #### [facility] [address] [place] [address] Dr. Rin Aguilar DIFF REQNONormalThe [facility] Orthopedic CenterComment on above: Performed By: #### CBC #### [facility] [address] [place] [address] Dr. Rin Sarah (RBC) [Entitic mass]32.4 biSggbgx86.7-34.0The [facility] CenterComment on above:Performed By: #### CBC #### [facility] [address] [place] [address] Dr. Rin Sarah (RBC) [Mass/Vol]33.7 g/uIXbdsda41.9-35.2The [facility] CenterComment on above:Performed By: #### CBC #### [facility] [address] [place] [address] Dr. Rin Sarah (RBC) [Entitic vol]96.1 qGZzkouq58.0-99.0The [facility] CenterComment on above:Performed By: #### CBC #### [facility] [address] [place] [address] Dr. Rin Richardson #0.5 103/ulNormal0.3-0.8The [facility] CenterComment on above:Performed By: #### CBC #### [facility] [address] [place] [address] Dr. Rin Correaocytes/100 WBC (Bld)8.9 %Normal1.7-12.0[facility] Comment on above:Performed By: #### CBC #### [facility] [address] [place] [address] Dr. Rin Yap #2.7 103/ulNormal1.4-6.5The [facility] CenterComment on above:Performed By: #### CBC #### [facility] [address] [address] [address] Rin PrideNeutrophils/100 WBC (Bld)44.4 %Ybbhau55.0-75.0The [facility] CenterComment on above:Performed By: #### CBC #### [facility] [address] [address] [address] Rin PridePlatelet mean volume (Bld) [Entitic vol]11.2 fLNormal9.5-13.5The [facility] CenterComment on above:Performed By: #### CBC #### [facility] [address] [place] [address] Dr. Rin PridePLT262 103/coFkfqik747-060Ops [facility] CenterComment on above: Performed By: #### CBC #### [facility] [address] [place] [address] Dr. Rin PrideRBC4.35 106/ulNormal4.20-5.40The [facility] CenterComment on above:Performed By: #### CBC #### [facility] [address] [place] [address] Dr. Rin PrideWBC6.0 103/ulNormal4.0-11.0The [facility] CenterComment on above: Performed By: #### CBC #### [facility] [address] [place] [address] Dr. Rin PridePREG HCG QUALon 36-24-4171NDKNVCNCJ, QUALNegativeNormalNEGATIVE The [facility] CenterComment on above:Performed By: #### PREG #### [facility] [address] [place] [address] Dr. Rin PrideCovid-19 PCR (CVDTBH)on 23-50-5484VSPV-CoV-2 (COVID-19) RNA PREET+probe Ql (Unsp spec)Not detectedNormalNOT DETECTEDThe [facility] Comment on above:Result Comment: This test is not yet approved or cleared by the [place] FDA. When there are no FDA-approved or cleared tests available, and other criteria are met, FDA can make tests available under an emergency access mechanism called an Emergency Use Authorization (EUA). The EUA for this test is supported by the Fax Machine Operator of Health and Human Service's (HHS's) declaration that circumstances exist to justify the emergency use of in vitro diagnostics for the detection and/or diagnosis of the virus that causes COVID- 19. This EUA will remain in effect (meaning [...] of clinical signs and symptoms consistent with SARS-CoV-2.Performed By: #### CVDTBH #### [facility] [address] [place] [address] Dr. Rin Smith ACOG PANEL 2: 30 to 65on 03-09-2022..NormalMercy Health West HospitalComment on above:Result Comment: Performed at: BAPerformed By: #### [id number] #### [facility] [address] [place] [address] Dr. Rin PrideAge Gdln ACOG Fvgkzqf15-17TxxolhEqgOhio State East HospitalComment on above:Performed By: #### [id number] #### [facility] [address] [place] [address] Dr. Rin PrideDIAGNOSIS:CommentGeorgetown Behavioral HospitalComment on above: Result Comment: NEGATIVE FOR INTRAEPITHELIAL LESION OR MALIGNANCY. Performed at: BAPerformed By: #### [id number] #### [facility] [address] [place] [address] Dr. Rin PrideHPV AptimaNegativeNormalNegativeMercy Health West HospitalComment on above:Result Comment: This nucleic acid amplification test detects fourteen high-risk HPV types (16,18,31,33,35,39,45,51,52,56,58,59,66,68) without differentiation. Performed at: =GPerformed By: #### [id number] #### [facility] [address] [place] [address] Dr. Rin PrideMethodology:CommentOhioHealth Dublin Methodist Hospital on above: Result Comment: This liquid based ThinPrep(R) pap test was screened with the use of an image guided system. Performed at: Performed By: #### [id number] #### [facility] [address] [place] [address] Dr. Rin PrideNote:CommentOhioHealth Dublin Methodist Hospital on above:Result Comment: The Pap smear is a screening test designed to aid in the detection of premalignant and malignant conditions of the uterine cervix. It is not a diagnostic procedure and should not be used as the sole means of detecting cervical cancer. Both false-positive and false-negative reports do occur. . Performed at: WBPerformed By: #### [id number] #### [facility] [address] [place] [address] Dr. Rin PridePerformed by:CommentOhioHealth Dublin Methodist Hospital on above: Result Comment: Roger Whitley, Design Transferrer (ASCP) Performed at: BAPerformed By: #### [id number] #### [facility] [address] [place] [address] Dr. Rin PrideSpecdonna adequacy:CommentOhioHealth Dublin Methodist Hospital on above:Result Comment: Satisfactory for evaluation. Endocervical and/or squamous metaplastic cells (endocervical component) are present. Performed at: BAPerformed By: #### [id number] #### [facility] [address] [place] [address] Dr. Rin Melendez AUTO DIFFon 27-70-6109DJIW #0.0 103/ulNormal0.0-0.1The [facility] CenterComment on above:Performed By: #### CBC #### [facility] [address] [place] [address] Dr. Rin PrideBasophils/100 WBC (Bld)0.4 %Normal0.2-2.0[facility] Comment on above:Performed By: #### CBC #### [facility] [address] [place] [address] Dr. Gar ChangEO #0.1 103/ulNormal0.0-0.7The [facility] CenterComment on above: Performed By: #### CBC #### [facility] [address] [place] [address] Dr. Rin Fineosinophils/100 WBC (Bld)1.6 %Normal0.9-7.0[facility] Comment on above:Performed By: #### CBC #### [facility] [address] [place] [address] Dr. Rin Finerythrocyte distribution width (RBC) [Ratio]12.2 %Zyvokl13.0-15.0 The [facility] CenterComment on above:Performed By: #### CBC #### [facility] [address] [place] [address] Dr. Rin PrideHematocrit (Bld) [Volume fraction]41.0 %Skhxik73.0-48.0The [facility] CenterComment on above:Performed By: #### CBC #### [facility] [address] [place] [address] Dr. Rin PrideHemoglobin (Bld) [Mass/Vol]13.4 g/cDBarlpo38.0-16.0The [facility] CenterComment on above:Performed By: #### CBC #### [facility] [address] [place] [address] Dr. Rin Crespo #0.01 10e3/ulNormal0.00-0.03The [facility] CenterComment on above:Performed By: #### CBC #### [facility] [address] [place] [address] Dr. Rin Crespo %0.1 %Normal0.0-0.5The [facility] CenterComment on above: Performed By: #### CBC #### [facility] [address] [place] [address] Dr. Rin Daniels #2.8 103/ulNormal1.2-3.8The [facility] CenterComment on above:Performed By: #### CBC #### [facility] [address] [place] [address] Dr. Rin Herreramphocytes/100 WBC (Bld)36.3 %Vwxrsl03.5-60.0The [facility] CenterComment on above:Performed By: #### CBC #### [facility] [address] [place] [address] Dr. Rin NguyenUAL DIFF REQNONormalThe [facility] CenterComment on above: Performed By: #### CBC #### [facility] [address] [place] [address] Dr. Rin Sarah (RBC) [Entitic mass]32.1 fcNywyeq49.7-34.0The [facility] CenterComment on above:Performed By: #### CBC #### [facility] [address] [place] [address] Dr. Rin Sarah (RBC) [Mass/Vol]32.7 g/cNPbeiql72.9-35.2The [facility] CenterComment on above:Performed By: #### CBC #### [facility] [address] [place] [address] Dr. Rin Sarah (RBC) [Entitic vol]98.1 qLVesjgz86.0-99.0The [facility] CenterComment on above:Performed By: #### CBC #### [facility] [address] [place] [address] Dr. Rin Richardson #0.6 103/ulNormal0.3-0.8The [facility] CenterComment on above:Performed By: #### CBC #### [facility] [address] [place] [address] Dr. Rin Correaocytes/100 WBC (Bld)7.7 %Normal1.7-12.0[facility] Comment on above:Performed By: #### CBC #### [facility] [address] [place] [address] Dr. Rin Yap #4.1 103/ulNormal1.4-6.5The [facility] CenterComment on above:Performed By: #### CBC #### [facility] [address] [place] [address] Dr. Rin Ashleyutrophils/100 WBC (Bld)53.9 %Gzkvsf40.0-75.0The Premier Healthment on above:Performed By: #### CBC #### [facility] [address] [address] [address] Rin PridePlatelet mean volume (Bld) [Entitic vol]10.5 fLNormal9.5-13.5The [facility] CenterComment on above:Performed By: #### CBC #### [facility] [address] [address] [address] Rin PridePLT241 103/zdBckwnt892-864Vjq [facility] CenterComtrinity health [facility] on above: Performed By: #### CBC #### [facility] [address] [address] [address] Rin PrideRBC4.18 106/ulCritically low4.20-5.40The [facility] CenterComtrinity health [facility] on above:Performed By: #### CBC #### [facility] [address] [address] [address] Rin PrideWBC7.6 103/ulNormal4.0-11.0The [facility]opedic CenterComtrinity health [facility] on above: Performed By: #### CBC #### [facility] [address] [address] [address] Rin PrideFREE T4on 85-03-8087Rpwa T4 [Mass/Vol]0.85 ng/dLNormal0.76-1.46 The [facility] CenterComtrinity health [facility] on above:Performed By: #### FT4 ####[facility] [address] [address].Yilan Pride GLYCOHEMOGLOBIN A1Con 68-20-2000XHP RECOMMENDATIONSEE BELOWGeorgetown Behavioral HospitalComtrinity health grand [facility] hospital on above:Result Comment: ADA RECOMMENDED LIMIT 4.0 - 6.0 ADA THERAPEUTIC TARGET < 7.0 ACTION SUGGESTED > 7.0Performed By: #### A1C #### [facility] [address] [address] [address] Rin PrideGlucose [Mass/Vol]108 mg/dLNormalThe Syracuse HospitalComment on above:Performed By: #### A1C #### [facility] [address] [address] [address] Rin PrideHbA1c (Bld) [Mass fraction]5.4 %Normal4.5-6.2[facility] West HospitalComment on above:Performed By: #### A1C #### [facility] [address] [address] [address] Rin PrideMG MAMM SCREEN 3D JUDY CADon 68-60-3915PW MAMM SCREEN 3D JUDY CAD Patient: ZAKI HUMPHREY Exam Date: 03/08/2022 : 1980 Gender:F Ordering : DR CHENG JOSEPH . Admission #: [id number] Family : Order #: [id number] CLICK HERE TO VIEW EXAM RADIOLOGY REPORT [...] lung cancer at age 23. LOCATION: [facility] BREAST COMPOSITION: Scattered areas fibroglandular density. FINDINGS: [...] by: Ronny Telles MD on 03/08/2022 at 11:23[facility] PREG QUANT HCGon 08-86-1352EHR QUANT1 mIU/mLNormalThe [facility] Orthopedic CenterComment on above:Performed By: #### PREGQNT, TSH ####[facility] [address] [place], [place]Dr. Rin Figueroa [facility] HospitalComment on above:Result Comment: 5-50 0.2-1 WEEK 50-500 1-2 WEEKS 100-5,000 2-3 WEEKS 500-10,000 3-4 WEEKS 1,000-50,000 4-5 WEEKS 10,000- 100,000 5-6 WEEKS 15,000-200,000 6-8 WEEKS 10,000-100,000 2-3 MONTHSPerformed By: #### PREGQNT, TSH ####[facility] [address] [place], [place]DrBrandy GarciaIMEon 57-31-7034FGR Coag (PPP) [Relative time]0.97 {INR}NormalMercy Health West HospitalComment on above:Performed By: #### PTT, PT #### [facility] [address] [place] [address] Dr. Rin Cheney [facility] HOSPITALE [facility] Hospital - WestComment on above:Result Comment: DESIRED INR: 2.0 - 3.0 CONDITIONS NOT LISTED BELOW 2.5 - 3.5 FOR PROSTHETIC HEART VALVE REPLACEMENT 2.5 - 3.5 RECURRENT THROMBOSIS Performed By: #### PTT, PT #### [facility] [address] [place] [address] Dr. Rin Steinberg Coag (PPP) [Time]10.5 sNormal9.0-11.6The [facility] Comment on above:Performed By: #### PTT, PT #### [facility] [address] [place] [address] Dr. Rin Astorga 49-01-7109jLEM Coag (Bld) [Time]27.6 mGkvoes43.3-36.2Mer[facility] HospitalComment on above:Performed By: #### PTT, PT #### [facility] [address] [place] [address] Dr. Rin Garcia 11-30-2819TWN8.358 uIU/mLNormal0.358-3.740The [facility]opedic CenterComment on above:Performed By: #### PREGQNT, TSH ####[facility] [address] [place], [place]Dr. Rin PrideUS PELVIS AND TRANSVAGon 76-80-7964KN PELVIS AND TRANSVAGEXAMINATION: US PELVIS AND TRANSVAG HISTORY: Excessive and [...] Electronically authenticated by: HOLA SUAREZ Date: 2022-03-08 17:10[facility] Behavioral HospitalCOMPREHENSIVE METABOLIC PANELon 39-19-1665Cgpifuk [Mass/Vol]4.4 g/dLNormal3.6-5.1Quest DiagnosticsComment on above:Performed By: #### 7600, [id number] #### [facility] [address] [address] Community Manager: Robinson Lange MDAlbumin/Globulin [Mass ratio]2.0 {ratio}Normal 1.0-2.5Quest DiagnosticsComment on above:Performed By: #### 7600, [id number] #### [facility] [address] [address] Community Manager: Robinson Lange MDALP [Catalytic activity/Vol]57 U/IGykrkm05-774 [facility] DiagnosticsComment on above:Performed By: #### 7600, 24042 #### [facility] of [address], [address] [place] [address] Apartment Community Manager: Robinson Lange MDALT [Catalytic activity/Vol]17 U/LNormal6-29 [facility] DiagnosticsComment on above:Performed By: #### 7600, 74781 #### [facility] of [address], [address] [place] [address] Apartment Community Manager: Robinson Lange MDAST [Catalytic activity/Vol]16 U/VRjgsme20-09 [facility] DiagnosticsComment on above:Performed By: #### 7600, [id number] #### [facility] of [address], [address] [place] [address] Apartment Community Manager: Robinson Lange MDBilirubin [Mass/Vol]0.5 mg/dLNormal0.2-1.2 [facility] DiagnosticsComment on above:Performed By: #### 7600, 89766 #### [facility] of [address], [address] [place] [address] Apartment Community Manager: Robinson Lange MDBUN/CREATININE RATIONOT APPLICABLENormal6-22 [facility]osticsComment on above:Performed By: #### 7600, 94518 #### [facility] of [address], [address] [place] [address] Apartment Community Manager: Robinson Lange MDCalcium [Mass/Vol]9.4 mg/dLNormal8.6-10.2Quest DiagnosticsComment on above:Performed By: #### 7600, 46933 #### [facility] of [address], [address] [place] [address] Apartment Community Manager: Robinson Lange MDChloride [Moles/Vol]105 mmol/RXoenql50-887 [facility] DiagnosticsComment on above:Performed By: #### 7600, 15024 #### [facility] of [address], [address] [place] [address] Apartment Community Manager: Robinson Lange MDCO2 [Moles/Vol]28 mmol/PMjegjf78-48Nbfbu DiagnosticsComment on above:Performed By: #### 7600, 80625 #### [facility] of [place] [address] Apartment Community Manager: Robinson Lange MDCreatinine [Mass/Vol]0.79 mg/dLNormal0.50-1.10 [facility]osticsComment on above:Performed By: #### 7600, 01465 #### [facility] of [place] [address] Apartment Community Manager: Robinson Lange MDeGFR NON-AFR. FVLXEDMV00 mL/min/1.56o1Mtedkw> OR = 60Quest DiagnosticsComment on above:Performed By: #### 7600, 35344 #### [facility] [place] [address] Apartment Community Manager: Robinson Lange MDGFR/1.73 sq M.predicted among blacks MDRD (S/P/Bld) [Vol rate/Area]109 mL/min/{1.73_m2}Normal> OR = 60[facility] Comment on above:Performed By: #### 7600, 32348 #### [facility] [place] [address] Apartment Community Manager: Robinson Lange MDGlobulin (S) [Mass/Vol]2.2 g/dLNormal1.9-3.7 [facility] DiagnosticsComment on above:Performed By: #### 7600, 57970 #### [facility] of [place] [address] Apartment Community Manager: Robinson Lange MDGlucose [Mass/Vol]85 mg/qBPnnirk82-98Vrpbw DiagnosticsComment on above:Result Comment: Fasting reference intervalPerformed By: #### 7600, 44055 #### [facility] of [place] [address] Apartment Community Manager: Robinson Lange MDPotassium [Moles/Vol]4.3 mmol/LNormal3.5-5.3 [facility] DiagnosticsComment on above:Performed By: #### 7600, 18158 #### [facility] of [address], [address] [place] [address] Apartment Community Manager: Robinson Lange MDProtein [Mass/Vol]6.6 g/dLNormal6.1-8.1Quest DiagnosticsComment on above:Performed By: #### 7600, 43263 #### [facility] of [address], [address] [place] [address] Apartment Community Manager: Robinson Lange MDSodium [Moles/Vol]140 mmol/SZjywml654-630Tswvj DiagnosticsComment on above:Performed By: #### 7600, 13424 #### [facility] of [address], [address] [place] [address] Apartment Community Manager: Robinson Lange MDUrea nitrogen [Mass/Vol]10 mg/dLNormal7-25 [facility]osticsComment on above:Performed By: #### 7600, 52165 #### [facility] of [address], [address] [place] [address] Apartment Community Manager: Robinson Lange MDLIPID PANEL, [facility] 31-17-7535Cnvmxbeehva [Mass/Vol]188 mg/dLNormal<200Quest DiagnosticsComment on above:Order Comment: FASTING:YES FASTING: YESPerformed By: #### 7600, 57092 #### [facility] of [address], [address] [place] [address] Apartment Community Manager: Robinson Lange MDCholesterol in HDL [Mass/Vol]66 mg/dLNormal> OR = 50Quest DiagnosticsComment on above:Order Comment: FASTING:YES FASTING: YESPerformed By: #### 7600, 38909 #### [facility] of [address], [address] [place] [address] Apartment Community Manager: Robinson Lange MDCholesterol in LDL [Mass/Vol]107 mg/dLHigh [facility]osticsComment on above:Order Comment: FASTING:YES FASTING: YESResult Comment: Reference range: <100 Desirable range <100 mg/dL for primary prevention; <70 mg/dL for patients with CHD or diabetic patients with > or = 2 CHD risk factors. LDL-C is now calculated using the Manisha calculation, which is a validated novel method providing better accuracy than the Friedewald equation in the estimation of LDL-C. Bear SS et al. KARTHIK. 2013;310(19): 0673-3832 (http://education.Chute.Retrace/faq/HKS140)Performed By: #### 7600, 41318 #### [facility] [address], [address] [place] [address] Apartment Community Manager: Robinson WINTERholesterol.total/Cholesterol in HDL [Mass ratio]2.8 {ratio}Normal<5.0Quest DiagnosticsComment on above:Order Comment: FASTING:YES FASTING: YESPerformed By: #### 7600, 44305 #### [facility] [address], [address] [place] [address] Apartment Community Manager: Robinson Lange MDNON HDL KOZKUHKCFMN582 mg/dL (calc)Normal<130 [facility]osticsComment on above:Order Comment: FASTING:YES FASTING: YESResult Comment: For patients with diabetes plus 1 major ASCVD risk factor, treating to a non-HDL-C goal of <100 mg/dL (LDL-C of <70 mg/dL) is considered a therapeutic option.Performed By: #### 7600, 76342 #### [facility] [address], [address] [place] [address] Apartment Community Manager: Robinson Lange MDTriglyceride [Mass/Vol]67 mg/dLNormal<150Quest DiagnosticsComment on above:Order Comment: FASTING:YES FASTING: YESPerformed By: #### 7600, 40352 #### [facility] [address], [address] [place] [address] Apartment Community Manager: Robinson Lange MD Vital Signs Date TimeVital SignValuePerforming IoctnololEceoxnoo04-66-8977 16:21-0400Body .02 cmPatricyulissa Rosales MOLDING MANAGER Work Phone: [facility]10-28-2025 16:21-0400 Body mass index (BMI) [Ratio]28.3 kg/c9CpnabgmxDevorah Rosales MOLDING MANAGER Work Phone: [facility]10-28-2025 16:21-0400 Body zuyurdyzorp41.3 [degF]Devorah Rosales MOLDING MANAGER Work Phone: [facility]10-28-2025 16:21-0400 Body .57 kgDevorah Rosales MOLDING MANAGER Work Phone: [facility]10-28-2025 16:21-0400 Diastolic blood mm[Hg]Devorah Rosales MOLDING MANAGER Work Phone: [facility]10-28-2025 16:21-0400 Heart rate53 /Drew Rosales MOLDING MANAGER Work Phone: [facility]10-28-2025 16:21-0400 Respiratory rate14 /Drew Rosales MOLDING MANAGER Work Phone: [facility]10-28-2025 16:21-0400 SaO2% (BldA) [Mass fraction]98 %Devorah Rosales MOLDING MANAGER Work Phone: [facility]10-28-2025 16:21-0400 Systolic blood axiudywk868 mm[Hg]Devorah Rosales MOLDING MANAGER Work Phone: [facility]04-14-2025 08:37-0400 Body jdzycb215.6 cmDennis Furlong DO Work Phone: [facility]04-14-2025 08:37-0400Body mass index (BMI) [Ratio]28.79 kg/t4Mqaplv Furlong DO Work Phone: [facility] [employer] Qozdwj07-63-7819 08:37-0400Body dchxvpksuri32.01 [degF]Scotty Hernándezng DO Work Phone: [facility] [employer] Vymeyc03-68-5798 08:37-0400Body yeijci46.11 kgScotty Hernándezng DO Work Phone: [facility] [employer] Sgwcyi56-44-8012 08:37-0400Diastolic blood kkisbxao58 mm[Hg]Scotty Hernándezng DO Work Phone: [facility] [employer] Rqjcdn81-78-9115 08:37-0400Heart rate 57 /Solo Hernándezng DO Work Phone: [facility] [employer] Buzbuy29-69-8655 08:37-0400 Respiratory rate20 /Solo Eagle DO Work Phone: [facility]04-14-2025 08:37-6178YrR9% (BldA) [Mass fraction]98 %Scotty Eagle DO Work Phone: [facility] [employer] Sltgjh34-75-8402 08:37-0400Systolic blood gktunecy850 mm[Hg]Scotty Eagle DO Work Phone: [facility] [employer] Rnbykc34-13-8659 08:33-0500Body mass index (BMI) [Ratio]28.46 kg/l2HvwvkCheng Griero DO Work Phone: [facility] HospitalJjxmcwpdjw03-85-9383 08:33-0500Body qwsrfe78.21 kgCoretunde Griero DO Work Phone: [facility] HospitalAbxmsmqpzs55-53-2704 08:33-0500Diastolic blood gvjktaxa57 mm[Hg]Cheng Griero DO Work Phone: [facility] HospitalEgzmezmphs43-93-0433 08:33-0500Systolic blood ofnpumgk323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 Micro?: Indicated Culture?: Not Indicated UA Bilirubin: NEGATIVE Urine Source: Voided UA Amorph.: Few Chemistry 05/29/2024 5:29 AM est. Creat Cl: 67.42 mL/min 05/29/2024 2:20 AM Creatinine Level: 0.89 mg/dL -- Normal range between ( 0.60 and 1.30 ) Albumin Level: 4.1 gm/dL -- Normal range between ( 3.5 and 5.0 ) Alk Phos: 45 IU/L -- Normal range between ( 32 and 91 ) Bili Total: 0.7 mg/dL -- Normal range between ( 0.3 and 1.2 ) BUN: 14 mg/dL -- Normal range between ( 8 and 26 ) Chloride Level: 100 mmol/L -- Normal range between ( 101 and 111 ) CO2: 27 mmol/L -- Normal range between ( 21 and 32 ) Glucose Level: 106.0 mg/dL -- Normal range between ( 74.0 and 118.0 ) Lipase Level: 29.0 IU/L -- Normal range between ( 22.0 and 51.0 ) Osmolality: 273 mOsm/L Potassium Level: 3.7 mmol/L -- Normal range between ( 3.6 and 5.1 ) Sodium Level: 136.0 mmol/L -- Normal range between ( 136.0 and 144.0 ) Protein Total: 7.2 gm/dL -- Normal range between ( 6.5 and 8.1 ) Anion Gap: 12.7 mmol/L -- Normal range between ( 5.0 and 19.0 ) Calcium Level: 9.4 mg/dL -- Normal range between ( 8.9 and 10.3 ) ALT/SGPT: 24.0 IU/L -- Normal range between ( 14.0 and 54.0 ) AST/SGOT: 19 IU/L -- Normal range between ( 15 and 41 ) BUN/Creat Ratio: 15.7 -- Normal range between ( 4.6 and 16.2 ) Globulin: 3.1 gm/dL -- Normal range between ( 1.5 and 4.3 ) A/G Ratio: 1.3 -- Normal range between ( 1.4 and 2.6 ) eGFR AA: >60 mL/min/1.73m2 eGFR Non AA: >60 mL/min/1.73m2 Troponin I High Sensitivity: <2.3 pg/mL [facility] Lab Order 05/29/2024 2:20 AM Tube Collected: Yes Computed Tomography 05/29/2024 2:[address] Abdomen/Pelvis w/o Contrast: CT Abdomen/Pelvis w/o Contrast Ultrasound 05/29/2024 7:57 AM US RUQ: US RUQ Radiology Report 05/29/2024 8:30 AM Radiology Report: Radiology Report DIET & ACTIVITY Patient Activity Lev (more content not included)...[facility] [id number] History of Present illness Narrative* Mariaagena Quintero, CORPORATE COUNSELOR - 05/15/2024 8:30 AM EST Reason for Appointment: Patient ID: Zaki Humphrey is a 44 y.o. female who presents for Well Women Visit Patient presents today for Annual Exam. MEDICATIONS Current Outpatient Medications Medication Instructions valACYclovir (VALTREX) 500 mg, Oral, Daily ALLERGIES No Known Allergies PROBLEMS Active Ambulatory Problems Diagnosis Date Noted No Active Ambulatory Problems Resolved Ambulatory Problems Diagnosis Date Noted No Resolved Ambulatory Problems Past Medical History: Diagnosis Date Breast lump Depression (CMS/HCC) Genital herpes Menorrhagia Ovarian cysts HISTORY PAST MEDICAL HISTORY SOCIAL HISTORY Past Medical History: Diagnosis Date Breast lump Depression (CMS/HCC) Genital herpes Menorrhagia Ovarian cysts Social History Tobacco Use Smoking status: Never Smokeless tobacco: Never Substance Use Topics Alcohol use: Never Drug use: Never FAMILY HISTORY Family History Problem Relation Name Age of Onset Hypertension Mother Other (Respiratory problems) Mother Diabetes Maternal Grandfather Heart disease Maternal Grandfather Other (CVA) Maternal Grandfather Irritable bowel syndrome Paternal Grandmother Diabetes Paternal Grandfather Cancer Paternal Grandfather Throat/ Tongue SURGICAL HISTORY Past Surgical History: Procedure Laterality Date SECTION, LOW TRANSVERSE 2007 SECTION, LOW TRANSVERSE 2008 OTHER SURGICAL HISTORY 04/13/2022 Ablation PAP SMEAR 03/09/2020 Normal ROBOTIC ASSISTED HYSTERECTOMY 05/09/2023 TUBAL LIGATION 12/22/2016 REVIEW OF SYSTEMS Review of Systems: Review of Systems All other systems reviewed and are negative. OBJECTIVE Objective: Physical Exam Constitutional: Appearance: Normal appearance. She is well-developed. Genitourinary: Vulva normal. Vaginal cuff intact. Cervix is absent. Uterus is absent. Breasts: Breasts are soft. Right: Normal. Left: Normal. Cardiovascular: Rate and Rhythm: Normal rate and regular rhythm. Abdominal: General: Bowel sounds are normal. There is no distension. Palpations: Abdomen is soft. Tenderness: There is no abdominal tenderness. There is no guarding or rebound. Musculoskeletal: General: No swelling. Normal range of motion. Right lower leg: No edema. Left lower leg: No edema. Neurological: Mental Status: She is alert and oriented to person, place, and time. Skin: General: Skin is warm and dry. Psychiatric: Mood and Affect: Mood normal. Behavior: Behavior normal. Vitals and nursing note reviewed. Exam conducted with a domestic technician present. Vitals: Estimated body mass index is 28.46 kg/m as calculated from the following: Height as of 04/27/22: 5' 4 . Weight as of this encounter: 165 lb 12.8 oz. BP: 120/70 Patient's last menstrual period was 03/30/2023. ASSESSMENT & PLAN ICD-10-CM 1. Well woman exam with routine gynecological exam Z01.419 THIN PREP TIS PAP AND HR HPV DNA 2. Breast cancer screening by mammogram Z12.31 CANCELED: Bilateral screening mammogram CANCELED: Bilateral screening mammogram Annual: Patient presents today for an annual exam. Patient states she is doing well and has no complaints. Pap was obtained without difficulty and patient given mammogram order to have scheduled/obtained. Follow Up: Patient is to return in one year for annual unless needed otherwise. Documented by Mariaa Quintero LPN on behalf of: Cheng Joseph DO documented in this encounterWright Memorial [id number] Miscellaneous Notes* Telephone Encounter - Natalie Knight CMA - 09/12/2023 5:13 PM EDT Patient is going to check with her formulary and see what is covered and call back. * Telephone Encounter - Natalie Knight CMA - 09/12/2023 5:13 PM EDT Patient has not reached back out to us [facility] Telephone encounter Note* Telephone Encounter - Natalie Knight CMA - 09/12/2023 5:13 PM EDT Patient is going to check with her formulary and see what is covered and call back. [facility]04-17-2024 Telephone encounter Note* Telephone Encounter - Natalie Knight CMA - 09/12/2023 5:13 PM EDT Patient has not reached back out to us [facility]04-10-2024 Progress note* Significant Event - Scotty Eagle DO - 09/05/2023 9:23 AM EDT She runs 3-4 miles 3-4 days a week [facility]04-10-2024 Miscellaneous Notes* Significant Event - Scotty Eagle DO - 09/05/2023 9:23 AM EDT She runs 3-4 miles 3-4 days a week documented in this encounterC[facility] Center04-10-2024 History of Present illness Narrative* Scotty Eagel DO - 09/05/2023 8:30 AM EDT Subjective Patient ID: Zaki Humphrey is a 43 y.o. female. Zaki presents today for her annual wellness exam. She is taking the valacyclovir and doing well with it. She has not having any side effects. She does have a lot of sweating which occurs randomly. It does not have to be with exercise or stress. She can just be relaxing and she starts sweating. A friend uses town let for this same problem and it works well for her. She would like to try it for herself. She is tried zeim-zpc-yocptkw preparations for this without any success. The following portions of the patient's history were reviewed and updated as appropriate: allergies, current medications, past family history, past medical history, past social history, past surgicalhistory, problem list, and medication reconciliation was completed including current medication andpost discharge medication. Review of Systems Constitutional: Negative. HENT: Negative. Eyes: Negative. Respiratory: Negative. Cardiovascular: Negative. Gastrointestinal: Negative. Endocrine: Excessive sweating intermittently Objective Physical Exam Constitutional: General: She is not in acute distress. Appearance: She is overweight. HENT: Head: Normocephalic. Right Ear: Tympanic membrane, ear canal and external ear normal. Left Ear: Tympanic membrane, ear canal and external ear normal. Nose: Nose normal. Mouth/Throat: Mouth: Mucous membranes are moist. Eyes: General: No scleral icterus. Extraocular Movements: Extraocular movements intact. Conjunctiva/sclera: Conjunctivae normal. Cardiovascular: Rate and Rhythm: Normal rate and regular rhythm. Pulses: Normal pulses. Heart sounds: Normal heart sounds. No murmur heard. Pulmonary: Effort: Pulmonary effort is normal. No respiratory distress. Breath sounds: Normal breath sounds. No wheezing, rhonchi or rales. Abdominal: General: Bowel sounds are normal. There is no distension. Palpations: Abdomen is soft. There is no mass. Tenderness: There is no abdominal tenderness. Hernia: No hernia is present. Musculoskeletal: General: No deformity. Cervical back: Neck supple. Right lower leg: No edema. Left lower leg: No edema. Lymphadenopathy: Cervical: No cervical adenopathy. Skin: General: Skin is warm and dry. Neurological: General: No focal deficit present. Mental Status: She is alert and oriented to person, place, and time. Cranial Nerves: No cranial nerve deficit. Gait: Gait normal. Psychiatric: Attention and Perception: Attention normal. Mood and Affect: Mood and affect normal. Speech: Speech normal. Behavior: Behavior normal. Behavior is cooperative. Thought Content: Thought content normal. Cognition and Memory: Cognition normal. Judgment: Judgment normal. Assessment/Plan Zaki was seen today for annual exam. Diagnoses and all orders for this visit: Well adult health check - Comprehensive metabolic panel; Future - Lipid panel; Future Health maintenance discussed. Check CMP and lipids. Hyperhidrosis - glycopyrronium tosylate 2.4 % towelette; Apply 1 Unit topically in the morning. She has issues with excessive sweating. It is interfering with her quality of life. She is tried and failed vuag-lup-wceixlr regimens. Will try Qbrexza. Overweight (BMI 25.0-29.9) She is just slightly overweight with clothes on. She is exercising regularly. She eats healthy. Herweight is down 12 lb from 2020. She was congratulated and encouraged to continue. Herpes simplex Doing well on suppressive therapy. Continue Luz acyclovir. Other orders - multivitamin tablet; Take 1 tablet by mouth in the morning. documented in this encounterWilson [address] HospitalVibrant Corporation11-17-2022 NoteOPERATIVE NOTE OPERATION DATE: 04/13/2022 PROCEDURE: Martha endometrial ablation with hysteroscopy. PREOPERATIVE DIAGNOSIS: Menorrhagia. POSTOPERATIVE DIAGNOSIS: Menorrhagia. ANESTHESIA: General. SURGEON: Cheng Joseph D.O. RETIREMENT CONSULTANT: None. BLOOD LOSS: 5 mL. URINE OUTPUT: [...] 2. Patient taken to recovery in stable condition.[facility] CenterEvaluation [facility]* Diagnosis Well woman exam with routine gynecological exam Routine gynecological examination Breast cancer screening by mammogram documented in this encounter [facility] HospitalEvaluation noteNo assessment information availableSelect Medical Specialty Hospital - [place] Work Phone: Evaluation note* Diagnosis Well adult health check- Primary Unspecified general medical examination Hyperhidrosis Generalized hyperhidrosis Overweight (BMI 25.0-29.9) Overweight Herpes simplex Herpes simplex without mention of complication documented in this encounter [facility]Evaluation [facility]* Diagnosis Well adult exam- Primary Routine general medical examination at a health care facility Overweight Overweight (BMI 25.0-29.9) Overweight documented in this encounter [facility] SystemInstructionsNot on filedocumented in this encounter [facility] SystemInstructionsNot on filedocumented in this encounter [facility] SystemInstructionsNot on filedocumented in this encounter [facility] SystemReason for referral (narrative)No reason for referral information availableLakehealth Beachwood [facility] Center Work Phone: Summary Purpose Family History No Family History Records FoundNo Family History Records FoundNo Family History Records FoundNo Family History Records FoundNo Family History Records FoundNo Family History Records FoundNo Family History Records Found Advance Directives No Advanced Directives Records Found Advance Directive Response Recorded Date/ Time Advance Directives No March 24, 2025 4:20pm Reason for Referral SpecialtyDiagnoses / ProceduresReferred By ContactReferred To Contact Diagnoses Hyperhidrosis Scotty Eagle, [address], [place] [address] Referral IDStatusReasonStart DateExpiration DateVisits RequestedVisits [id number] Chief Complaint and Reason for Visit Chief Complaint Admit Date dysuria March 24, 2025 4 :20pm Reason for Visit Admit Date UTI (urinary tract infection) March 242024 4:20pm Chief Complaint Admit Date dysuria March 24, 2025 4 :20pm Additional Source Comments INFORMATION SOURCE (unrecogn ized section and content) DATE CREATED AUTHOR 03/27/2021 [facility] DATE CREATED AUTHOR AUTHOR'S ORGANIZ ATION 06/15/2022 [facility] DATE CREATED AUTHOR AUTHOR'S ORGANIZ ATION 05/18/2024 [facility] EPIC DATE CREATED AUTHOR AUTHOR'S ORGANIZ ATION 09/08/2024 [facility] DATE CREATED AUTHOR AUTHOR'S ORGANIZ ATION 09/10/2024 [facility] DATE CREATED AUTHOR AUTHOR'S ORGANIZ ATION 04/01/2025 [facility] DATE CREATED AUTHOR AUTHOR'S ORGANIZ ATION 04/08/2025 [facility] Care Teams (unrecognized sec tion and content) Team MemberRelationshipSpecialtyStart DateEnd Date Scotty Eagle MD [address], [place] [address] PCP - Ufezqxn71/3/23Team MemberRelationshipSpecialtyStart DateEnd Date Scotty Eagle MD [address], [place] [address] PCP - Embjfyg49/3/23 Team Status: Inactive Member Role Status Dates Erwin Boyle MD Attending Provider Active Start: May 29, 2024 End: May 29, 2024Team MemberRelationshipSpecialtyStart DateEnd Date Scotty Eagle DO [address], [place] [address] PCP - [facility]09/05/23Team MemberRelationshipSpecialtyStart DateEnd Date Scotty Eagle DO [address], [place] [address] PCP - [facility]09/05/23Team MemberRelationshipSpecialtyStart DateEnd Date Scotty Eagle DO [address], [place] [address] [facility]09/05/23Team MemberRelationshipSpecialtyStart DateEnd Date Scotty Eagle MD [facility]02/27/23 Team Status: Active Member Role/Relationship Status Dates NON STAFF Primary Care Provider Active Team Status: Inactive Member Role/Relationship Status Dates EVERETTE Mata RN CLASS B DRIVER-C Attending Provider Active Start: March 24, 2025 End: March 24, 2025NON STAFFPrimary Care ProviderActiveStart: March 24, 2025 End: March 24, 2025 Team Status: Inactive Member Role/Relationship Status Dates EVERETTE Mata RN, NP-C Attending Provider Active Start: March 24, 2025 End: March 24, 2025NON STAFFPrimary Care ProviderActiveStart: March 24, 2025 End: March 24, 2025 Team Status: Inactive Member Role/Relationship Status Dates Devorah Jami Hackenburg , AP RN CLASS B DRIVER-C Attending Provider Active Start: March 24, 2025 End: March 24, 2025 Reason for Visit (unrecogniz ed section and content) ReasonCommentsWell Women VisitReasonCommentsAnnual ExamReasonCommentsAnnual Exam Goals (unrecognized section and content) Goals may be documented in a n alternate sectionNot on filedocumented as of this encounterNot on filedocumented as of this encounterNot on filedocumented as of this encounterGoals may be documented in an alternate sectionGoals may be documented in an alternate section FOR RECORDS PERTAINING TO PATIENTS WHO ARE [...] BE BASED ON THE PRIMARY CLINICAL RECORDS. [employer] [facility]. provides no warranty or guarantee of the accuracy or completeness of information in this document.
--- NOTE | 2025-04-15 07:08 | MM_ITS ---
Patient Name: ZAKI HUMPHREY MR#: [id number] : 1980 Exam Date: 04/15/2025 Ordering Doctor: DR SHAY KRUSE . RADIOLOGY REPORT PROCEDURE: MM TOMOSYNTHESIS SCREENING BI COMPARISON: MM TOMOSYNTHESIS SCREENING BI, 04/11/2024. MM TOMOSYNTHESIS SCREENING BI, 04/10/2023. MG MAMM SCREEN 3D JUDY CAD, 03/08/2022. MG MAMM JUDY DIAG W CAD, 08/07/2016. INDICATIONS: screening Calculator Name NCI Breast Cancer Risk Assessment Tool 5 Year Breast Cancer Risk 2.30% Lifetime Breast Cancer Risk 16.70% Personal Breast Cancer No Personal Ovarian Cancer No Treatments None Family Cancers Grandfather-maternal with throat cancer at age 70; Aunt-maternal with lung cancer at age 22. LOCATION: [facility] BREAST COMPOSITION: There are scattered areas of fibroglandular density. FINDINGS: RIGHT BREAST: No significant suspicious finding. LEFT BREAST: No significant suspicious finding. There is a similar focal asymmetry with an accompanying biopsy clip. Benign-appearing calcifications are present. DIAGNOSTIC CATEGORY 2--BENIGN FINDING. NO CHANGE FROM COMPARISON. RECOMMENDATIONS: ROUTINE MAMMOGRAM AND CLINICAL EVALUATION IN 12 MONTHS. Dictated by: Kobe Alberts MD on 04/15/2025 at 14:11 Approved by: Kobe Alberts MD on 04/15/2025 at 14:13
== END 2025-04-15 07:04 | disposition home or self-care (01) ==
LOC: MAMMO 07:03
PROVIDERS: Visit Provider Obstetrics & Gynecology
DX: Z12.31 Encounter for screening mammogram for malignant neoplasm of breast (principal); Z80.1 Family history of malignant neoplasm of trachea, bronchus and lung; Z80.8 Family history of malignant neoplasm of other organs or systems
CPT/HCPCS: 77063; 77067

== ENCOUNTER 2025-05-19 20:32 | Outpatient (REF) | payer OTHER, SELFPAY ==
--- OUTSIDE RECORDS SUMMARY | 2025-05-19 09:00 | XMS_ITS | Encounter Summary ---
Author Organization [facility] Address [address] [place] [address] Care Team Providers Care Diamond Sander Name Role Phone Scotty Yuen MD Primary Care Provider + [phone] Reason for Visit * ReasonCommentsWell Women Visit Encounter Details DateTypeDepartmentCare Team (Latest Contact Info)Paadmemcisj66/23/2025 9:00 AM ESTOffice Visit [facility] [address] [place] [id number] Cheng Joseph DO [address] [place] [address] Well woman exam with routine gynecological exam; Breast cancer screening by mammogram Social History Tobacco UseTypesPacks/DayYears UsedDateSmoking Tobacco: NeverSmokeless Tobacco: NeverAlcohol UseStandard Drinks/WeekCommentsNever0 (1 standard drink = 0.6 oz pure alcohol)CommentsNoSex and Gender InformationValueDate RecordedSex Assigned at QmxndZuqzyl83/03/2023 9:05 AM EDTLegal HzzWunyiv13/15/2023 11:47 PM EDTGender WzrqktuhAtydxx97/03/2023 9:05 AM EDTSexual OrientationStraight 02/27/2023 9:05 AM EDTdocumented as of this encounter Last Filed Vital Signs Vital SignReadingTime TakenCommentsBlood Dwidgssb419/7005/19/2025 9:01 AM EST Pulse--Temperature--Respiratory Rate--Oxygen Saturation--Inhaled Oxygen Concentration--Cdaknb67.5 kg (159 lb 12.8 oz)05/19/2025 9:01 AM ESTHeight--Body Mass Index27.43106/28/2021 12:00 PM ESTdocumented in this encounter Progress Notes * Lashanda Sarabia, ENGINEERING ASSOCIATE - 05/19/2025 9:00 AM EST Reason for Appointment: Patient ID: Tala Valente is a 45 y.o. female who presents for Well Women Visit Patient presents today for Annual Exam. MEDICATIONS Current Outpatient Medications Medication Instructions valACYclovir (VALTREX) 500 mg, Oral, Daily ALLERGIES No Known Allergies PROBLEMS Active Ambulatory Problems Diagnosis Date Noted No Active Ambulatory Problems Resolved Ambulatory Problems Diagnosis Date Noted No Resolved Ambulatory Problems Past Medical History: Diagnosis Date Breast lump Depression Genital herpes Menorrhagia Ovarian cysts HISTORY PAST MEDICAL HISTORY SOCIAL HISTORY Past Medical History: Diagnosis Date Breast lump Depression Genital herpes Menorrhagia Ovarian cysts Social History [...] SECTION, LOW TRANSVERSE 2007 SECTION, LOW TRANSVERSE 2009 GALLBLADDER 05/29/2024 OTHER SURGICAL HISTORY 04/13/2022 Ablation PAP SMEAR 03/09/2020 Normal ROBOTIC ASSISTED HYSTERECTOMY 05/09/2023 TUBAL LIGATION 12/22/2016 REVIEW OF SYSTEMS Review of Systems: Review of Systems Constitutional: Negative. HENT: Negative. Eyes: Negative. Respiratory: Negative. Cardiovascular: Negative. Gastrointestinal: Negative. Genitourinary: Negative. Musculoskeletal: Negative. Skin: Negative. Neurological: Negative. All other systems reviewed and are negative. Hematological: Negative. Endocrine: Negative. Allergic/Immunologic: Negative. OBJECTIVE Objective: Physical Exam Constitutional: Appearance: Normal [...] nursing note reviewed. Exam conducted with a cattle feeder present. Vitals: Estimated body mass index is 27.43 kg/m?? as calculated from the following: Height as of 04/27/22: 5' 4 . Weight as of this encounter: 159 lb 12.8 oz. BP: 112/70 Patient's last menstrual period was 03/30/2023. ASSESSMENT & PLAN ICD-10-CM 1. Well woman exam with routine gynecological exam Z01.419 THIN PREP TIS PAP AND HR HPV DNA 2. Breast cancer screening by mammogram Z12.31 Bilateral screening mammogram Bilateral screening mammogram Orders Placed This Encounter Procedures Bilateral screening mammogram Annual Wellness Exam (Post Hysterectomy): Patient presents today for routine annual exam. Patient states she has no current complaints. Patients vitals were reviewed and within normal limits. Growth and development is noted to be appropriate for age. Menstrual history is noted to be obsolete due to patients history of hysterectomy. No mental health concerns was expressed. Pap Smear: Speculum was inserted into the vagina and pap was obtained without difficulty. HPV testing was performed per guidelines. Patient was advised that pap results could take anywhere from 7 to 10 days to receive and our office will reach out to the patient with those once we have them. Patient can also view results via [employer]. I reinforced importance of condom use for STI prevention. Patient declined cultures to be performed with today's visit. Breast Exam: Upon examination, clinical breast exam was noted to be normal. Patient was counseled on breast self-awareness, including the importance of knowing what is normal for her own breasts and promptly reporting any changes such as new lumps, skin dimpling, nipple discharge, or pain. Screening mammogram recommended annually beginning at age 40 or earlier if risk factors are present. Discussed signs and symptoms of breast cancer and when to seek medical attention. Answered all patient questions. Follow Up: Patient is to return to our office in one year for annual exam unless needed otherwise. Documented by Lashanda Sarabia LPN on behalf of: Cheng Joseph DO documented in this encounter Plan of Treatment DateTypeDepartmentCare Team (Latest Contact Info)Lvuoonedhin63/05/2027 9:00 AM ESTProcedure Visit [facility] [address] [place] [address] Cheng Joseph DO [address] [place] [address] NameTypePriorityAssociated DiagnosesOrder ScheduleBilateral screening mammogram ImagingRoutine Breast cancer screening by mammogram Expected: 05/19/2025 (Approximate), Expires: 07/20/2026THIN PREP TIS PAP AND HR HPV DNAPathology and CytologyRoutine Well woman exam with routine gynecological exam Ordered: 05/19/2025documented as of this encounter Visit Diagnoses Diagnosis Well woman exam with routine gynecological exam Routine gynecological examination Breast cancer screening by mammogram documented in this encounter Care Teams Team MemberRelationshipSpecialtyStart DateEnd Date Scotty Yuen MD [address] [facility], [place] [address] PCP - Zxijzhh41/3/23documented as of this encounter
--- OUTSIDE RECORDS SUMMARY | 2025-05-19 20:36 | XMS_ITS | Encounter Summary ---
Author Organization [facility] Address [address] [place] [address] Care Team Providers Care Anodic Treater Name Role Phone Scotty Yuen MD Primary Care Provider [phone] Encounter Details DateTypeDepartmentCare Team (Latest Contact Info)Mowtlrmxqbo80/18/2025Travel Social History Tobacco UseTypesPacks/DayYears UsedDateSmoking Tobacco: NeverSmokeless Tobacco: NeverAlcohol UseStandard Drinks/WeekCommentsNever0 (1 standard drink = 0.6 oz pure alcohol)CommentsNoSex and Gender InformationValueDate RecordedSex Assigned at YnwyiJcjole87/03/2023 9:05 AM EDTLegal YecNjsfha05/15/2023 11:47 PM EDTGender YxhdlbsxQytmdh82/03/2023 9:05 AM EDTSexual OrientationStraight 02/27/2023 9:05 AM EDTdocumented as of this encounter Plan of Treatment DateTypeDepartmentCare Team (Latest Contact Info)Xtcieuflpxu65/05/2027 9:00 AM ESTProcedure Visit [facility] [address] [place] [address] Cheng Joseph DO [address] [place], [place] [id number] documented as of this encounter Visit Diagnoses Not on filedocumented in this encounter Care Teams Team MemberRelationshipSpecialtyStart DateEnd Date Scotty Yuen MD [address], [place] [address] [facility]02/27/23documented as of this encounter
--- OUTSIDE RECORDS SUMMARY | 2025-05-19 20:36 | XMS_ITS | Clinical Summary ---
Author Organization [facility] Address [address], [address] [place] [address] Care Team Providers Care Cookie Breaker Name Role Phone Say Jiang DO Primary Care Provider Unavaila ble Allergies No known active allergies Medications MedicationSigDispense QuantityRefillsLast FilledStart DateEnd DateStatus NONFORMULARY controlActive Active Problems ProblemNoted DateDiagnosed DateSyncope and /16/2015 Social History Tobacco UseTypesPacks/DayYears UsedDateSmoking Tobacco: NeverAlcohol UseStandard Drinks/WeekCommentsNo0 (1 standard drink = 0.6 oz pure alcohol)Comments NoSex and Gender InformationValueDate RecordedSex Assigned at BirthNot on file Legal NlhNlfsbw66/10/2013 11:01 AM ESTGender IdentityNot on fileSexual OrientationNot on file Last Filed Vital Signs Vital SignReadingTime TakenCommentsBlood Znvyycun830/5207 7:02 PM EDT Dxwng120712/10/2014 8:00 AM AXRMznzzgbwbka97.5 ??C (97.7 ??F)12/09/2014 7:01 PM EDTRespiratory Sphh686412/09/2014 7:01 PM EDTOxygen Rqbcdpcrjm569%12/09/2014 7:01 PM EDTInhaled Oxygen Concentration--Sdncfi63.8 kg (164 lb 14.5 oz)12/09/2014 7:01 PM OJZLgsxat673 cm (5' 3 )12/09/2014 7:01 PM EDTBody Mass Index29.21 12/09/2014 7:01 PM EDT Plan of Treatment Not on file Insurance Advance Directives * Full Code (Latest Code Status on File) Date ActivatedDate InactivatedComments12/09/2014 6:21 PM12/10/2014 6:05 PM Care Teams Team MemberRelationshipSpecialtyStart DateEnd Date Say Jiang DO PCP - General12/09/14
--- OUTSIDE RECORDS SUMMARY | 2025-05-19 20:36 | XMS_ITS | Encounter Summary ---
Author Organization [facility] Address [address] [place] [address] Care Team Providers Care Dianeticist Name Role Phone Scotty Yuen MD Primary Care Provider [phone] Encounter Details DateTypeDepartmentCare Team (Latest Contact Info)Thvjxdkdpwv45/23/2025amboo flowsheet [facility] [address] [place] [address] Cheng Joseph DO [facility] [address] [place], [place] [address] Social History Tobacco UseTypesPacks/DayYears UsedDateSmoking Tobacco: NeverSmokeless Tobacco: NeverAlcohol UseStandard Drinks/WeekCommentsNever0 (1 standard drink = 0.6 oz pure alcohol)CommentsNoSex and Gender InformationValueDate RecordedSex Assigned at XjbezXvhzwl16/03/2023 9:05 AM EDTLegal CegOgiovl54/15/2023 11:47 PM EDTGender CxbgqiwkWpxzev71/03/2023 9:05 AM EDTSexual OrientationStraight 02/27/2023 9:05 AM EDTdocumented as of this encounter Plan of Treatment DateTypeDepartmentCare Team (Latest Contact Info)Gvlcbuiuknp11/05/2027 9:00 AM ESTProcedure Visit [facility] [address] [place] [address] Cheng Joseph DO [address] [place] [address] documented as of this encounter Visit Diagnoses Not on filedocumented in this encounter Care Teams Team MemberRelationshipSpecialtyStart DateEnd Date Scotty Yuen MD [address], [place] [address] PCP - Ksthsoo67/3/23documented as of this encounter
--- OUTSIDE RECORDS SUMMARY | 2025-05-19 20:36 | XMS_ITS | Clinical Summary ---
Author Organization [facility] Address [address] [place] [address] Care Team Providers Care Administrative Appeals Tribunal Member Name Role Phone Scotty Yuen MD Primary Care Provider [phone] Allergies No known active allergies Medications MedicationSigDispense QuantityRefillsLast FilledStart DateEnd DateStatus valACYclovir (Valtrex) 500 MG tablet Indications:Genital herpes simplex, unspecified siteTAKE ONE TABLET BY MOUTH DAILY 90 tablet 5Active Encounters DateTypeDepartmentCare JrdaOzloycavqvr29/23/2025 9:00 AM ESTOffice Visit [facility] [address] [place] [address] Shay Joseph DO Well woman exam with routine gynecological exam; Breast cancer screening by rfexlxgex30/23/2025amboo flowsheet [facility] [address] [place] [address] Shay Joseph DO 05/14/20251564Ifsthw65/19/2025Clinisync Result Encounter [facility] External Department Unsolicited Shay Joseph DO from Last 3 Months Family History Medical HistoryRelationNameCommentsCVAMaternal GrandfatherDiabetesMaternal GrandfatherHeart diseaseMaternal GrandfatherHypertensionMotherRespiratory problemsMotherCancerPaternal GrandfatherThroat/ TongueDiabetesPaternal GrandfatherIrritable bowel syndromePaternal GrandmotherRelationNameStatus CommentsFatherAliveMaternal GrandfatherAliveMaternal GrandmotherAliveMotherAlive Paternal GrandfatherDeceasedPaternal GrandmotherAliveSiblingAlive Social History Tobacco UseTypesPacks/DayYears UsedDateSmoking Tobacco: NeverSmokeless Tobacco: Never Tobacco Cessation:Counseling Given: Not Answered Alcohol UseStandard Drinks/WeekCommentsNever0 (1 standard drink = 0.6 oz pure alcohol)CommentsNoSex and Gender InformationValueDate RecordedSex Assigned at AxwxwPaikil92/03/2023 9:05 AM EDTLegal GbqGpvfax26/15/2023 11:47 PM EDTGender EthnlbayOkxfam98/03/2023 9:05 AM EDTSexual OrientationStraight 02/27/2023 9:05 AM EDT Last Filed Vital Signs Vital SignReadingTime TakenCommentsBlood Benceqbx813/7005/19/2025 9:01 AM EST Pulse--Temperature--Respiratory Rate--Oxygen Saturation--Inhaled Oxygen Concentration--Kjlhik90.5 kg (159 lb 12.8 oz)05/19/2025 9:01 AM GIIBihsrg178.6 cm (5' 4 )04/27/2022 12:00 PM ESTBody Mass Index27.43106/28/2021 12:00 PM EST Plan of Treatment DateTypeDepartmentCare Team (Latest Contact Info)Tqeqyxkgorw08/05/2027 9:00 AM ESTProcedure Visit [facility] [address] [place] [phone] Shay Joseph DO [address] [place] [address] Procedures Procedure NamePriorityDate/TimeAssociated DiagnosisCommentsMM TOMOSYNTHESIS SCREENING BI04/15/2025 2:13 PM EST from Last 3 Months Results * MM TOMOSYNTHESIS SCREENING BI (04/15/2025 2:13 PM EST)Anatomical Region LateralityModalityOtherSpecimen (Source)Anatomical Location / Laterality Collection Method / VolumeCollection TimeReceived Time04/15/2025 2:13 PM EST Narrative 04/15/2025 2:14 PM EST [facility] ?[address] ? [place] [address] ? Mammography Report ? Signed ? Patient: KAM,ZAKI K ?MR#: [id number] ?? : 1980 ?Acct:[id number] ?? Age/Sex: 45 / F ?ADM Date: 11/19/25 ?? Loc: MAMMO ? Attending Dr: Shay Joseph D.O. ? Ordering Physician: Shay Joseph D.O. ?Results: ? Date of Service: 04/15/25 ?Follow Up: ? Procedure(s): MM tomosynthesis screening BI ?? Accession Number(s): [id number] ? cc: Shay Joseph D.O.; Physician,Non-Staff M.D. ? Patient Name: ? ZAKI KAM ? MR#: [id number] ? : 1980 ? Exam Date: 04/15/2025 ?? Ordering Doctor: DR SHAY JOSEPH . ? RADIOLOGY REPORT ? PROCEDURE: ? MM TOMOSYNTHESIS SCREENING BI ? COMPARISON: ? MM TOMOSYNTHESIS SCREENING BI, 04/11/2024. ??MM TOMOSYNTHESIS ?? SCREENING BI, 04/10/2023. ??MG MAMM SCREEN 3D JUDY CAD, 03/08/2022. ??MG MAMM JUDY ?? DIAG W CAD, 08/07/2016. ? INDICATIONS: ? screening ? Calculator Name ? NCI Breast Cancer Risk Assessment Tool ?? 5 Year Breast Cancer Risk ? 2.30% ?? Lifetime Breast Cancer Risk ? 16.70% ?? Personal Breast Cancer ?No ?? Personal Ovarian Cancer ? No ?? Treatments ? None ?? Family Cancers ? Grandfather-maternal with throat cancer at age 70; ?? Aunt-maternal with lung cancer at age 22. ? LOCATION: ? [facility] ? BREAST COMPOSITION: ? There are scattered areas of fibroglandular density. ? FINDINGS: ? RIGHT BREAST: ??No significant suspicious finding. ? LEFT BREAST: ??No significant suspicious finding. ??There is a similar focal ?? asymmetry with an accompanying biopsy clip. ??Benign-appearing calcifications ?? are present. ? DIAGNOSTIC CATEGORY 2--BENIGN FINDING. NO CHANGE FROM COMPARISON. ? RECOMMENDATIONS: ? ROUTINE MAMMOGRAM AND CLINICAL EVALUATION IN 12 MONTHS. ? Dictated by: Kobe Alberts MD on 04/15/2025 at 14:11 ? Approved by: Kobe Alberts MD on 04/15/2025 at 14:13 ? Dictated By: ?Kobe Alberts M.D. ? Signed By: ?04/15/25 1414 ? DD/ 1413 ? TD/TT: ? Kalsominer: Procedure Note Radiology, Radiologist, - 04/15/[address] [place] [address] Mammography Report Signed Patient: ZAKI VALENTE KMR#: [id number] : 1980Acct:[id number] Age/Sex: 45 / FADM Date: 04/15/25 Loc: MAMMO Attending Dr: Shay Joseph D.O. Ordering Physician: Shay Joseph D.O.Results: Date of Service: 04/15/25Follow Up: Procedure(s): MM tomosynthesis screening BI Accession Number(s): [id number] cc: Shay Joseph D.O.; Physician,Non-Staff Courtney Patient Name: ZAKI VALENTE MR#: [id number] : 1980 Exam Date: 04/15/2025 Ordering Doctor: DR SHAY JOSEPH . RADIOLOGY REPORT PROCEDURE: MM TOMOSYNTHESIS SCREENING BI COMPARISON: MM TOMOSYNTHESIS SCREENING BI, 04/11/2024. MMTOMOSYNTHESIS SCREENING BI, 04/10/2023. MG MAMM SCREEN 3D JUDY CAD, 03/08/2022. MG MAMMBIL DIAG W CAD, 08/07/2016. INDICATIONS: screening Calculator Name NCI Breast Cancer Risk Assessment Tool 5 Year Breast Cancer Risk 2.30% Lifetime Breast Cancer Risk 16.70% Personal Breast Cancer No Personal Ovarian Cancer No Treatments None Family Cancers Grandfather-maternal with throat cancer at age 70; Aunt-maternal with lung cancer at age 22. LOCATION: [facility] BREAST COMPOSITION: There are scattered areas of fibroglandulardensity. FINDINGS: RIGHT BREAST: No significant suspicious finding. LEFT BREAST: No significant suspicious finding. There is a similar focal asymmetry with an accompanying biopsy clip. Benign-appearingcalcifications are present. DIAGNOSTIC CATEGORY 2--BENIGN FINDING. NO CHANGE FROM COMPARISON. RECOMMENDATIONS: ROUTINE MAMMOGRAM AND CLINICAL EVALUATION IN 12 MONTHS. Dictated by: Kobe Alberts MD on 04/15/2025 at 14:11 Approved by: Kobe Alberts MD on 04/15/2025 at 14:13 Dictated By: Kobe Alberts M.D. Signed By:04/15/25 1414 DD/ 1413 TD/TT: Kalsominer: Authorizing ProviderResult TypeResult StatusShay Joseph DOCLINISYNC IMAGINGFinal Result from Last 3 Months Insurance Care Teams Team MemberRelationshipSpecialtyStart DateEnd Date Scotty Yuen MD [address] [facility] [place] [address] PCP - Qvrbhnu14/3/23
--- OUTSIDE RECORDS SUMMARY | 2025-05-19 20:36 | XMS_ITS | Clinical Summary ---
Author Organization [facility] Address [id number] [address] [place] [address] Care Team Providers Care Remote Sensing Surveyor Name Role Phone Alpa Scotty Olivier DO Primary Care Provider Allergies No known active allergies Medications MedicationSigDispense QuantityRefillsLast FilledStart DateEnd DateStatus valACYclovir (VALTREX) 500 mg tablet Take 1 tablet (500 mg total) by mouth in the morning.Active multivitamin tablet Take 1 tablet by mouth in the morning.09/05/2023ctive cetirizine (ZyrTEC) 10 mg tablet Take 1 tablet (10 mg total) by mouth nightly as needed for allergies.09/08/2024 Active Active Problems ProblemNoted DateDiagnosed DateHerpes cxpqrkj9009/05/2023Overweight (BMI 25.0-29.9)09/05/20236067Djalzgvgltnwz58/10/2024Syncope and mclwhfay48/16/2015 Delivery with history of ckqwolc9711/25/2006 Immunizations ImmunizationAdministration DatesNext UyoM1K1 Inj Preservative Free04/29/2009 Influenza, Recombinant, Quadrivalent, Injectable, Jnotuwq8303/03/2022Tdap 02/15/2021 Family History Medical HistoryRelationNameCommentsNo Known ProblemsBrotherHypertensionFather COPDMotherHypertensionMotherNo Known ProblemsSisterRelationNameStatusComments BrotherAliveFatherAliveMotherAliveSisterAlive Social History Tobacco UseTypesPacks/DayYears UsedDateSmoking Tobacco: NeverSmokeless Tobacco: NeverAlcohol UseStandard Drinks/WeekCommentsYes2 (1 standard drink = 0.6 oz pure alcohol)[facility] UtilitiesAnswerDate RecordedIn the past 12 months has the electric, gas, oil, or water company threatened to shut off services in your home?No09/05/2023Social Connection and Isolation PanelAnswerDate RecordedIn a typical week, how many times do you talk on the phone with family, friends, or neighbors?More than three times a week09/05/2023How often do you get together with friends or relatives?More than three times a week09/05/2023How often do you attend alevism or orthodoxy services?1 to 4 times per year09/05/2023o you belong to any clubs or organizations such as alevism groups, unions, fraternal or athletic groups, or school groups?No09/05/2023How often do you attend meetings of the clubs or organizations you belong to?Never09/05/2023re you , , , , never , or living with a partner? 09/05/2023UDIT-CAnswerDate RecordedQ1: How often do you have a drink containing alcohol?2-4 times a month09/05/2023Q2: How many drinks containing alcohol do you have on a typical day when you are drinking?1 or Q3: How often do you have six or more drinks on one occasion?Never09/05/2023Overall Financial Resource Strain (CARDIA)AnswerDate RecordedHow hard is it for you to pay for the very basics like food, housing, medical care, and heating?Not hard at all 09/05/2023HQ-2AnswerDate RecordedTotal Onmbc612[facility] [place] of Occupational Health - Occupational Stress QuestionnaireAnswerDate RecordedDo you feel stress - tense, restless, nervous, or anxious, or unable to sleep at night because yourmind is troubled all the time - these days?Only a jvsgxw6909/05/2023 Exercise Vital SignAnswerDate RecordedOn average, how many days per week do you engage in moderate to strenuous exercise (like a brisk walk)?4 days09/05/2023On average, how many minutes do you engage in exercise at this level?30 min 09/05/2023RAPARE - TransportationAnswerDate RecordedIn the past 12 months, has lack of transportation kept you from medical appointments or from getting medications?No09/05/2023In the past 12 months, has lack of transportation kept you from meetings, work, or from getting things needed for daily living?No 09/05/2023Housing InstabilityAnswerDate RecordedAre you worried or concerned that in the next two months you may not have stable housing that you own, rent or stay in as a part of a household?No09/05/2023hildcareAnswerDate RecordedDo problems getting children's service worker make it difficult for you to work or study?No 09/05/2023EmploymentAnswerDate RecordedDo you need help finding a local career center and/or a training program?No09/05/2023Hunger ScreeningAnswerDate Recorded Within the past 12 months we worried whether our food would run out before we got money to buy more.Never True09/08/2024Within the past 12 months the food we bought just didn't last and we didn't have money to get more.Never True 09/08/2024Purpose - LifeAnswerDate RecordedI have a purpose and direction in my life.Strongly Agree09/05/2023CommentsUnknownSex and Gender Information ValueDate RecordedSex Assigned at BirthNot on fileLegal PexGxwsmw36/06/2015 11:33 AM EDTGender IdentityNot on fileSexual OrientationNot on file Last Filed Vital Signs Vital SignReadingTime TakenCommentsBlood Yubbfixv563/60009/08/2024 8:37 AM EDT Rgjrn475109/08/2024 8:37 AM ECMQgcodhelcev13.7 ??C (98 ??F)09/08/2024 8:37 AM EDT Respiratory Ddms789709/08/2024 8:37 AM EDTOxygen Kshaccdopo15%09/08/2024 8:37 AM EDTInhaled Oxygen Concentration--Rcuebi20.1 kg (167 lb 12.8 oz)09/08/2024 8:37 AM XCDGypsho041.6 cm (5' 4.02 )09/08/2024 8:37 AM EDTBody Mass Index28.79 09/08/2024 8:37 AM EDT Plan of Treatment Health MaintenanceDue DateLast GgloVtmrmaeaMuotuewhk25/18/2021OVID-19 Vaccine ( season)/11/2021, 04/08/2021, 08/20/2020, Additional history existsAdult BMI Follow Up Plan/dult BMI Screening Depression Tgadcfozv68Tobacco Screening DTaP,Tdap and Td Vaccines (2 - Td or Tdap)02/15/2031 02/15/2021ap GlattRroljyhmetji85/09/2023Influenza VtfqkhlJpfhepqhh77/14/2025, 03/03/2022, 04/29/2009 Medical Devices Not on file Insurance MemberSubscriberPlan / Payer (Effective 2022-Present)Name:Tala Valente Relation to Subscriber:SelfName:Tala Valente Payer ID:Not on file Group ID:[id number] Type:Not on file Address: [facility] [address] [id number] Care Teams Team MemberRelationshipSpecialtyStart DateEnd Date Scotty Yuen DO [address], [facility] [place] [address] [facility]09/05/23
== END 2025-05-19 20:33 | disposition home or self-care (01) ==
LOC: LAB 20:32
PROVIDERS: Visit Provider Obstetrics & Gynecology
DX: Z01.419 Encounter for gynecological examination (general) (routine) without abnormal findings (principal)
CPT/HCPCS: 88175